=== PATIENT | female | born 1975 | race Caucasian/White ===

== ENCOUNTER → 2023-10-07 08:01 | Outpatient (BNVA) | payer OTHER, SELFPAY | PROVIDERS: PCP Internal Medicine; Visit Provider Physician Assistant Surgical ==

== ENCOUNTER 2023-11-04 08:20 | Outpatient (AMB) | payer OTHER, SELFPAY ==
--- NOTE | 2023-11-04 08:21 | MHC.OFFVISWM ---
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: No Allergies bee pollen Allergy (Severe, Verified 11/04/23 08:35) Anaphylaxis mold Allergy (Intermediate, Uncoded 11/04/23 08:35) Anaphylaxis Medication List - Last Reconciled 11/04/23 by MAXIMILIAN Lara ascorbic acid (vitamin C) PO DAILY biotin mcg PO clonazepam mg PO clonidine HCl mg PO DAILY cyanocobalamin (vitamin B-12) (B-12 DOTS) 500 mcg PO DAILY duloxetine 30 mg PO BID ergocalciferol (vitamin D2) 1,250 mcg PO QWEEK gabapentin 100 mg PO TID multivitamin (Daily Multi-Vitamin tablet) 1 tab PO DAILY naltrexone microspheres ER (Vivitrol) 380 mg IM Q4W omeprazole 20 mg PO BID HPI Comments Details: Pt is here to start the [facility] Weight Management surgical weight loss program. She heard about our program from her friend. Her goal is to lose weight and achieve a healthy lifestyle. She reports first being concerned about her weight for the last 13 years, highest weight to date was 296, lowest weight after GBP was 142 pounds. Current weight is 181.6 pounds with a BMI of 31.2. She has tried multiple methods of weight loss including previous gastric bypass without permanent results. She lives alone. 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 She wakes at:?8 am, and goes to bed at?1030 pm. Dinner is at 730 pm. Breakfast: skip or coffee w cream AM snack: cheese, deli meat Lunch: small sandwich w roast beef or turkey, pizza, chicken PM snack: cheese and crackers Dinner: ravioli, steamers, lobster, chicken After dinner: yogurt Other snacks: hummus Liquids: 160 oz water, no soda, no juice Alcohol/marijuana/tobacco intake: 2 etoh beverages 1-2 x per week, no cannabis or tobacco Exercise: none, gym membership at GERD score: 7 REJI score: 1 ESS score: 3 QOL score: 52 PFS Surgical History Hx of abdominoplasty Hx of rotator cuff surgery Hx of hernia repair Hx of breast reconstruction Hx of hysterectomy Hx of bilateral mastectomy Hx of resection of small bowel Hx of cholecystectomy Hx of lymph node excision Hx of gastric bypass Hx of tonsillectomy Family History Mother Hx of uterus malignancy Father Hx of bladder cancer Maternal Grandmother History of pancreatic cancer Social History (Updated 10/07/23 @ 10:32 by Hanane Cohen CMA) Alcohol intake: current Alcohol intake frequency: holidays/special occasions only Alcohol type: other Comment: soniya Physical Exam Const General: cooperative, healthy appearing and no acute distress Orientation/consciousness: patient oriented x3 HEENT Head: Yes normal to inspection Ears: hearing grossly normal bilaterally General nose exam: Normal external nose present Face and sinus: Yes normal facial exam Eyes General: appearance normal, both eyes and all related structures Resp Effort & Inspection: normal respiratory effort Auscultation: clear to auscultation bilaterally Cardio Rate: regular rate Rhythm: regular rhythm Heart sounds: S1 normal heart sound present and S2 normal heart sound present GI Inspection: Yes normal to inspection, No distended and Yes obesity Palpation (GI): Soft to palpation, nontender and no guarding Auscultation: normal bowel sounds Skin General skin exam: no rashes or lesions noted Neuro General: patient oriented x3 Extrem General: No edema Psych Appearance: grossly normal Mental Status: mental status grossly normal Speech and movement: Normal speech and movement present Affect: normal affect Attitude: cooperative Assessment & Plan Assessment & Plan (1) Obesity: Code(s): E66.9 - Obesity, unspecified Category: Medical Plan: This is a?48 yo female who will start our SWL program to prepare for bariatric surgery.? Blood work, CXR, ECG, Abd US and UGI have been ordered. She is being scheduled for initial consultations. She will start SWL classes and watch the first three videos before her next appointment. 1. You have been given a paper with a link to our software aby ([email or web address]) to generate an individualized nutritional and exercise plan specific for you. Please send me a screenshot of the plans you will generate Meal to include lean meat (beef, fish, pork, turkey, chicken), or hungarian yogurt, or egg whites, or beans with a salad with olive oil and fruits (berries, pears, apples, kiwi). Avoid salt, breads, potatoes, rice, pasta, desserts. 2. If you choose shakes, each shake would be drunk slowly, like coffee over a period of 2 hours. 3. If you choose bars, cut each bar in 4 pieces and eat each piece in 30 min to make each bar last 2 hours. 4. I emphasized the importance of measuring accurately the food portion and measure it when serving the food on a plate 5. The meal portions include a specific number of forks of meat (protein) and salad. You always eat the meat portion but you can replace up to half of salad/vegetables portion with rice, potatoes or pasta, or a fruit ?if you like. The less you do it the better weight loss will be. 6. One full-size fork is what can be scooped on the fork without falling aside and not what can be bit with the fork. Use regular forks like those you find in a typical restaurant. 7.? Please send me weight measurements from your body composition scale as soon as possible and then once a week. Always include your diet and exercise plan. The best time to weigh yourself is first thing in the morning after going to the bathroom. 8. The best choice for exercise would be stationary bike, elliptical, treadmill. Please return to [facility] gym. Goal is to burn 300 calories daily or 2000 calories weekly. Alternatively start walking outside daily, tracking calories with a goal of 300 calories per day, daily. You can download the aby [employer] which can track your time, distance and calories while walking outside. You press start in the ayb when you start and then stop when you are finished. 9.?Goal is to lose at least 1.5-2 lbs per week, and about 10% before surgery, which is about 18 pounds 10. Please follow the diet plan exactly without any change. If you don't like something about the plan or you feel hungry you need to communicate with me so I can help you revise the plan. My cell phone number to communicate with me by text is [phone] Patient is morbidly obese and is not considered stable at this time.?I spent a total of 70 minutes reviewing/updating records, examining the patient and counseling the patient on weight management as detailed above. Orders: Orders Comprehensive Met. Panel Today E66.9 - Obesity, unspecified Vitamin B12 and Folate Today E66.9 - Obesity, unspecified Zinc Today E66.9 - Obesity, unspecified C Reactive Protein Today E66.9 - Obesity, unspecified Vitamin B1 Today E66.9 - Obesity, unspecified Vitamin A Today E66.9 - Obesity, unspecified TSH reflex Free T4 Today E66.9 - Obesity, unspecified Vitamin D 25-OH Total Today E66.9 - Obesity, unspecified FL upper GI w air Today E66.9 - Obesity, unspecified Insulin Today E66.9 - Obesity, unspecified Hemoglobin A1c Today E66.9 - Obesity, unspecified Complete Blood Count Auto Diff Today E66.9 - Obesity, unspecified Lipid Panel Today E66.9 - Obesity, unspecified IRON PROFILE Today E66.9 - Obesity, unspecified Ferritin Today E66.9 - Obesity, unspecified US abdomen comp w elastography Today E66.9 - Obesity, unspecified XR chest 2V Today E66.9 - Obesity, unspecified ECG 12 lead EKG Today E66.9 - Obesity, unspecified Referrals Behavioral Health Referral E66.9 - Obesity, unspecified
[2023-11-04 08:31] VITALS: BP 133/67; PULSE 69; TEMP 36.6; O2SAT 99; BMI 31.2
== END 2023-11-04 09:17 | disposition home or self-care (01) ==
PROVIDERS: PCP Internal Medicine; Visit Provider Physician Assistant Surgical
DX: E66.9 Obesity, unspecified (principal)
CPT/HCPCS: 99205

== ENCOUNTER 2023-11-04 08:20 | Outpatient (REF) | payer OTHER, SELFPAY ==
--- NOTE | ~2023-11-04 | XR_ITS ---
EXAMINATION: XR CHEST CLINICAL INFORMATION: Obesity unspecified. COMPARISON: None available. TECHNIQUE: 2 views of the chest were obtained. FINDINGS: Dextroscoliosis of the thoracic spine. Surgical clips overlie the left breast shadow. Postsurgical changes at the right hilum with surgical clips. Surgical clips in the right axilla. Surgical clips along the anterior upper abdomen. No pleural effusion. Heart size is normal. No focal consolidation. XR/XR chest 2V IMPRESSION: No evidence of pneumonia. Multiple areas of postsurgical change are incompletely evaluated. Correlation with surgical history and possible direct correlation with prior images recommended. Electronically signed by: Kiara Bear MD 12/01/2023 10:35 AM EDT
--- NOTE | 2023-11-04 09:30 | ECG_ITS ---
Test Reason : e66.9 Blood Pressure : / mmHG Vent. Rate : 064 BPM Atrial Rate : 064 BPM P-R Int : 160 ms QRS Dur : 096 ms QT Int : 410 ms P-R-T Axes : 054 027 043 degrees QTc Int : 422 ms Sinus rhythm with sinus arrhythmia with occasional Premature ventricular complexes Otherwise normal ECG No previous ECGs available Referred By: Enrique Amador Electronically Signed By:DIXON SOARES
[2023-11-04 09:47] LABS: MANUAL DIFF FLAG NO
[2023-11-04 10:48] LABS: Basophils Percent Auto 0.6 % (0-2); Eosinophils Absolute Auto 0.1 X10*3/uL (0.0-0.4); Eosinophils Percent Auto 1.6 % (0-4); Hematocrit 38.5 % (37.0-47.0); Hemoglobin 12.7 g/dl (12.0-16.0); Imm Gran Abs Auto 0.01 X10*3/uL (0.00-0.03); Imm Gran Pct Auto 0.2 % (0.0-0.4); Lymphocytes Absolute Auto 2.4 X10*3/uL (1.2-4.9); Lymphocytes Percent Auto 48.7 % (20-40); Mean Corpuscular Hemoglobin 27.7 pg (27.0-33.0); Mean Corpuscular Volume 84.1 fL (80.0-98.0); Monocytes Absolute Auto 0.3 X10*3/uL (0.1-1.2); Monocytes Percent Auto 5.5 % (2-11); Neutrophils Absolute Auto 2.1 x10*3/uL (2.0-8.3); Neutrophils Percent Auto 43.4 % (45-73); Platelet Count 274 X10*3/uL (160-400); Red Blood Count 4.58 X10*6/uL (4.20-5.50); Red Cell Distribution Width 13.5 % (11.0-16.0); White Blood Count 4.9 X10*3/uL (4.8-10.8)
[2023-11-04 11:00] LABS: Estimated Average Glucose 111 mg/dL; Hemoglobin A1c % 5.5 % (<6.0)
[2023-11-04 11:25] LABS: Alanine Aminotransferase 24 U/L (0-31); Albumin Level 4.4 g/dL (3.5-5.0); Alkaline Phosphatase 131 U/L (39-117); Anion Gap 10 (12-20); Aspartate Amino Transferase 20 U/L (5-31); Bilirubin Total 0.6 mg/dL (0.0-1.0); Blood Urea Nitrogen 15 mg/dL (9-16); C Reactive Protein < 0.10 mg/dL (< or = 0.50); Calcium 9.3 mg/dL (8.4-10.2); Carbon Dioxide 30 mmol/L (22-29); Chloride 103 mmol/L (96-108); Cholesterol 178 mg/dL (<200); Estimated Glomerular Filt Rate > 60; Glucose Random 99 mg/dL (60-115); HDL Cholesterol 70 mg/dL (>40); Iron 44 mcg/dL (30-160); LDL Cholesterol Calculated 91 mg/dL (<100); Percent Iron Saturation 11 % (15-50); Potassium 3.7 mmol/L (3.3-5.1); Sodium 139 mmol/L (135-145); Total Iron Binding Capacity 399 mcg/dL (228-428); Total Protein 7.4 g/dL (6.5-8.0); Triglycerides 85 mg/dL (<150); Unsaturated Iron Binding 355 ug/dL
[2023-11-04 11:47] LABS: Folate 9.2 ng/mL (> or = 4.0); Vitamin B12 464 pg/mL (200-900)
[2023-11-04 11:53] LABS: Ferritin 9 ng/mL (10-250); TSH reflex Free T4 1.35 uIU/mL (0.32-4.0); Vitamin D 25-OH Total 25.6 ng/mL (>30)
[2023-11-04 12:01] LABS: Insulin 6 uU/mL (2-29)
[2023-11-07 11:53] LABS: Zinc 71 mcg/dL (60-130)
[2023-11-08 10:58] LABS: Vitamin B1 15 nmol/L (8-30)
[2023-11-11 18:28] LABS: Vitamin A 47 mcg/dL (38-98)
== END 2023-11-04 08:21 | disposition home or self-care (01) ==
LOC: HO.LAB 08:20
PROVIDERS: PCP Internal Medicine; Visit Provider Physician Assistant Surgical
DX: E66.9 Obesity, unspecified (principal); Z79.899 Other long term (current) drug therapy
CPT/HCPCS: 36415; 71046; 80053; 80061; 82306; 82607; 82728; 82746; 83036; 83525; 83540; 84425; 84443; 84590; 84630; 85025; 86140; 93005; 99202

== ENCOUNTER → 2023-11-04 09:30 | Outpatient (BNV) | payer OTHER, SELFPAY | PROVIDERS: PCP Internal Medicine; Visit Provider Internal Medicine | DX: E66.9 Obesity, unspecified (principal) | CPT/HCPCS: 93010 ==

== ENCOUNTER 2023-11-16 08:05 | Outpatient (REF) | payer OTHER, SELFPAY ==
--- NOTE | ~2023-11-16 | US_ITS ---
EXAMINATION: US COMPLETE ABDOMEN WITH LIVER ELASTOGRAPHY CLINICAL INFORMATION: Obesity. COMPARISON: None available. TECHNIQUE: Real-time imaging of the abdominal viscera. Noninvasive ultrasound liver fibrosis assessment is performed using Piyush ElastPQ point quantification shear wave elastography (pSWE) with a C5-2 MHz transducer. Multiple elastography samples are obtained. FINDINGS: PANCREAS: The visualized pancreatic head and body are normal in appearance. The remainder of the pancreas is obscured from visualization by the overlying bowel gas. ABDOMINAL AORTA: The proximal, middle, and distal aortic segments are normal in caliber. INFERIOR VENA CAVA: Visualized portions are normal. LIVER: The liver demonstrates normal size, contour and echogenicity. No focal lesion or intrahepatic biliary duct dilatation. The right lobe measures 15.5 cm in length. The left lobe measures 10.5 cm in length. Portal flow is towards the liver (hepatopetal). Shear wave liver elastography median stiffness is 1.27 m/s (reference: normal median stiffness is 1.3 m/s or less). IQR/median stiffness to assess sampling precision is 0.08 (reference: good quality data set is IQR/median stiffness of 0.15 or less). GALLBLADDER: The gallbladder is physiologically distended without evidence of stones, sludge, polyps, wall thickening or pericholecystic fluid. COMMON BILE DUCT: Common bile duct mildly dilated at 0.7 cm in diameter. RIGHT KIDNEY: Normal. No hydronephrosis. No renal calculi or focal parenchymal lesions. The kidney measures 10.5 cm in maximum dimension. LEFT KIDNEY: Normal. No hydronephrosis. No renal calculi or focal parenchymal lesions. The kidney measures 11.2 cm in maximum dimension. SPLEEN: Normal. The spleen measures 10.3 cm in maximum dimension. FREE FLUID: None. US/US abdomen comp w elastography IMPRESSION: 1. Normal-appearing liver. 2. Liver Elastography: Measurements are consistent with a high probability of normal liver stiffness. REFERENCE: Society of Radiologists in Ultrasound Liver Stiffness Thresholds (2020): LIVER STIFFNESS THRESHOLDS: *Liver Stiffness equal or less than 1.3 m/s: High probability of being normal. *Liver Stiffness less than 1.7 m/s: In the absence of other known clinical signs, rules out compensated advanced chronic liver disease. *Liver Stiffness 1.7-2.1 m/s: Suggestive of compensated advanced chronic liver disease but need further test for confirmation. *Liver Stiffness over 2.1 m/s: Rules in compensated advanced chronic liver disease. *Liver Stiffness over 2.4 m/s: Suggestive of clinically significant portal hypertension. QUALITY OF DATA SET: *IQR/Median value equal or less than 0.15 implies a quality data set. *IQR/Median value over 0.15 implies a poor quality data set. SIGNIFICANT CHANGE FROM PRIOR EXAM: Significant change if liver stiffness measurement is 10% or greater from prior exam. OTHER CONSIDERATIONS: The stage of liver fibrosis may be overestimated in the setting of acute hepatitis, liver inflammation, elevated liver function tests, hepatic vascular congestion, obstructive cholestasis, non-fasting state, and infiltrative diseases such as amyloidosis and lymphoma. In some patients with NAFLD, the liver stiffness thresholds for compensated advanced chronic liver disease may be lower. In causes other than viral hepatitis and NAFLD, liver stiffness thresholds are not well established. Electronically signed by: Diallo Schmitz MD 11/26/2023 09:55 PM EDT
== END 2023-11-16 08:06 | disposition home or self-care (01) ==
LOC: HO.US 08:05
PROVIDERS: PCP Physician Assistant; Visit Provider Physician Assistant Surgical
DX: E66.9 Obesity, unspecified (principal)
CPT/HCPCS: 76700; 76981

== ENCOUNTER → 2023-11-18 09:55 | Outpatient (REF) | payer OTHER, SELFPAY ==
--- NOTE | 2023-11-18 09:59 | CA_ITS ---
Transthoracic Echocardiogram Patient (Last, First, Middle): Chata Turner, Gender: Female Date of : 1975 Age: 48 Procedure Date: 11/18/2023 Procedure Type: Transthoracic Echocardiogram Location: OP Height: 165.1 cm Weight: 83.92 kg BSA: 1.91 m2 Heart Rate: bpm BP: 132 / 88 mmHg Kier Pleater: LESLEE Referring MD: Enrique YAO Fundraising Consultant: Patrick Britton MD Symptoms: R94.31 - Abnormal electrocardiogram [ECG] [EKG] Study Quality: Fair, contrast ECG Rhythm: Sinus Conclusions: - 1. Normal LV ejection fraction 55-60% with normal filling pattern 2. Normal cardiac valvular Doppler 3. Normal RV systolic pressure 4. Upper limits of normal ascending aortic size Findings Procedure Information Contrast agent, definity, is being given per protocol without apparent complications. Left Ventricle Normal left ventricular size, thickness, and systolic function. The visually estimated ejection fraction is between 55-60%. Spectral Doppler is indicative of a normal filling pattern. Right Ventricle The right ventricle was not well visualized. Atria The left atrium is normal in size. Interatrial shunt cannot be excluded. The right atrium is normal in size. Aortic Valve The aortic valve was not well visualized. There is no aortic valve stenosis. There is no aortic valve regurgitation. Mitral Valve The mitral valve was not well visualized. There is no mitral valve regurgitation. There is no mitral valve stenosis. Pulmonic Valve The pulmonic valve was not well visualized. Tricuspid Valve Likely normal tricuspid valve structure and function. There is trace tricuspid valve regurgitation. The right ventricular systolic pressure is normal. The right ventricular systolic pressure is 22 mmHg. Normal right atrial pressure. There is no evidence of pulmonary hypertension. Great Vessels All visible segments of the aorta are normal in size. The pulmonary artery was not well visualized. Venous The inferior vena cava is normal in size. Pericardium/Pleural The pericardium was not well visualized. Prior Study Comparison No prior study available for comparison. Measurements 2D Linear Measurements IVSd: 0.94 0.6-0.9/0.6-1.0 cm LVIDd: 4.49 3.9-5.3/4.2-5.9 cm LVIDd Index: 2.35 2.4-3.2/2.2-3.1 cm/m2 LVIDs: 2.90 2.0-3.6 cm LVPWd: 0.95 0.7-1.1 cm LA Diam: 2.90 2.7-3.8/3.0-4.0 cm LAIDs Index: 1.52 1.5-2.3 cm/m2 LV Mass: 175.82 67-162/88-224 g LV Mass Index: 92.05 43-95/49-115 g/m2 LVOT Diam: 2.10 3.0+(-)1.3 cm 2D Systolic Function EF 4C: 59.90 >55% EF 2C: 59.10 >55% EF BiP: 57.10 >55% Mitral Valve MV Pk E: 1.05 MV PK A: 0.73 MV Decel Time: 182.00 E/A: 1.40 E'Lateral: 11.30 E'Medial: 7.40 E/E' Med: 14.20 E/E' Lat: 9.30 PHT: 53.00 MVA PHT: 4.15 Decel Vermilion: 5.75 Aortic Valve AoV Pk Hermilo: 1.33 AoV Mn Hermilo: 0.96 AoV VTI: 0.32 AoV Pk Grad: 7.00 Aov Mn Grad: 4.00 KANNAN Cont.VTI: 2.24 LVOT LVOT Pk Hermilo: 0.92 LVOT Mn Hermilo: 0.63 LVOT VTI: 0.21 LVOT Pk Grad: 3.00 LVOT Mn Grad: 2.00 LVOT Diam: 2.10 LVOT Area: 3.46 Diastolic Function MV Pk E: 1.05 MV Pk A: 0.73 E/A: 1.40 E'Medial: 7.40 E/E' Med: 14.20 E' Laterial: 11.30 E/E' Lat: 9.30 Right Ventricle TAPSE (mm): 22.10 TVS' Hermilo: 9.36 Tricuspid Valve TR Pk Hermilo: 2.18 TR Pk Grad: 19.00 RA Press: 3.00 RVSP: 22.00 Great Vessels Aorta Sinus of Valsalva: 3.31 2.0-3.5 cm Ao Asc: 3.60 2.1-3.4 cm Updated in Other Vendor System with Status of Final Patrick Britton MD electronically signed on 11/18/2023 1:49:02 PM with status of Final
== END ==
LOC: HO.CARD 09:55
PROVIDERS: PCP Internal Medicine; Visit Provider Physician Assistant Surgical
DX: R94.31 Abnormal electrocardiogram [ECG] [EKG] (principal)
CPT/HCPCS: 93306; Q9957

== ENCOUNTER → 2023-11-18 09:59 | Outpatient (BNV) | payer OTHER, SELFPAY | PROVIDERS: PCP Internal Medicine; Visit Provider Internal Medicine Cardiovascular Disease | DX: R94.31 Abnormal electrocardiogram [ECG] [EKG] (principal) | CPT/HCPCS: 93306 ==

== ENCOUNTER 2023-11-30 09:00 | Outpatient (AMB) | payer OTHER, SELFPAY ==
--- NOTE | 2023-11-30 09:09 | MHC.WMTHER ---
Intake Intake Visit Reasons: VIDEO Intake Allergies bee pollen Allergy (Severe, Verified 12/07/23 09:13) Anaphylaxis mold Allergy (Intermediate, Uncoded 12/07/23 09:13) Anaphylaxis PFSH Surgical History Hx of abdominoplasty Hx of rotator cuff surgery Hx of hernia repair Hx of breast reconstruction Hx of hysterectomy Hx of bilateral mastectomy Hx of resection of small bowel Hx of cholecystectomy Hx of lymph node excision Hx of gastric bypass Hx of tonsillectomy Family History Mother Hx of uterus malignancy Father Hx of bladder cancer Maternal Grandmother History of pancreatic cancer Social History Alcohol intake: current Alcohol intake frequency: holidays/special occasions only Alcohol type: other Comment: soniya Behavioral Health Assessment Weight Management Therapy Therapy Notes Details PT is a years old F/M, who presents for a visit to complete assessment as part of surgical weight loss program. Presenting Concerns Referral Source P Provider, Has initial [place] with [facility] on 11/04/23 at was at 181Lbs. Reason for referral Completion of behavioral health assessment as part of process for weight-loss surgery. Precipitating Event Weight gain and struggles losing weight in the last years after dealing with Cancer post-bariatric surgery. Food/Weight/Diet Expectations of change Initial goal is to lose at least 1.5-2 lbs per week, and about 10% before surgery, which is about 18 pounds. Current weight was 181Lbs. Her ideal weight is around 150Lbs, which is a comfortable point for her. Patient goals are to be and feel healthy. PT is implementing the following: Current meal plan: Exercise plan: History/Relationship with food Example of meals before starting the program: Breakfast: Lunch: Dinner: Snacks: Drinks/Liquids: History/Relationship with weight All of the family on her mother side are obese and has diabetes related complications. In the last 10 years, the patient's Lowest weight was 140Lbs and highest Social History Family history and relationship PT is 9 years ago. She has 4 adult children and 3 grandchildren. She has 1 sister who lives in [place]. Father in 2017, mother is alive. Growing up she was very close to her grandparents. 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 Developmental history and status None reported Currently WNL. Social support Mother, youngest daughter who lives with her, great sisters from the [facility]. Community support Therapist, and other providers. Baptist/Spirituality Congregational. Cultural/Ethnic information . Legal Involvement and History Current or historical involvement with the legal system? None reported. 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 ) Wants help to find employment? No Mental Health and Addiction Treatment Psychiatric history PT is attending psychotherapy on a weekly basis, and sees a psychiatrist every month. PT reports a history of trauma leading to PTDS, Sleeping issues and OCD. She has been hospitalized 2 times due to depression, more than 9 years ago (2004 and 2013) Never has had SI/Sa and denied any past of current concern with self-harming or other-harm. Current psych. Meds: Clonazepam 0.5Mg, 3 times at day. She takes it as needed. Clonidine 0.1mg, for anxiety. Duloxetine 30mg, for depression Gabapentin 100mg, for sleep and chronic pain. Vivitrol 380mg, injection once at month. due to extended time using prescription pain medicine due to multiple surgeries and being on pain meds. Currently takes it as a prevention as she went into withdraws after stopping pain medicine. Trauma/Abuse History History of trauma? Yes Assessment & Plan Assessment & Plan (1) PTSD (post-traumatic stress disorder): Code(s): F43.10 - Post-traumatic stress disorder, unspecified Plan PT not cleared, we will meet again to finish assessment. Telehealth Telehealth [facility] Location of provider rendering services: other Location of patient: address on file Patient Identification confirmed using: Name, : Yes Telehealth method: voice only Patient verbally consented to treatment: Yes Patient verbally consented to billing insurance company: Yes Patient informed of any privacy concerns related to visit: No Minutes spent on Phone/Video with Pt.: 55 Coding Level of Care Code New Pt Tele Psytx >53 mins (33282) Patient Type New Diagnoses PTSD (post-traumatic stress disorder) F43.10 Time Spent (min) 55
--- OUTSIDE RECORDS SUMMARY | 2023-11-30 09:12 | XMS_ITS | Continuity of Care Document ---
Author Organization [facility] [place] Address [address] [place] [address]- Care Team Providers Care Novelty Twister Tender Name Role Phone Kwasi Riggins MD, Mary Primary Care Physician Encounter [facility] Date(s): 12/17/21 - 01/16/22 [facility] [place] [address] [place] [address]- Allergies, Adverse Reactions, Alerts Substance Reaction Severity Status Bee Stings severe swelling Active NSAIDs History of stomach ulcers 04-JAN-2016 21: 52:31<$> Active Mold swelling Active Immunizations Given and Recorded Vaccine Date Status Refusal Reason SARS-CoV-2 (COVID-19) mRNA-1273 vaccine 06/22/21 R ecorded influenza virus vaccine, inactivated 04/09/21 Dereje rded influenza virus vaccine, inactivated 11/20/20 Dereje rded influenza virus vaccine, inactivated 12/23/19 Dereje rded influenza virus vaccine, inactivated 04/18/19 Give n influenza virus vaccine, inactivated 12/07/18 Dereje rded influenza virus vaccine, inactivated 12/19/17 Dereje rded influenza virus vaccine, inactivated 05/22/17 Give n influenza virus vaccine, inactivated 12/24/14 Dereje rded SARS-CoV-2 (COVID-19) mRNA BNT-162b2 vac 01/02/21 Recorded SARS-CoV-2 (COVID-19) mRNA BNT-162b2 vac 05/11/20 Recorded SARS-CoV-2 (COVID-19) mRNA BNT-162b2 vac 04/20/20 Recorded hepatitis B adult vaccine 05/10/15 Given hepatitis B adult vaccine 03/19/15 Given tetanus/diphtheria/pertussis, acel(Tdap) 2/15/13 Recorded Medications acamprosate 333 mg oral delayed release tablet 2 tablet = 666 mg, By Mouth, 3 times a day, # 180 tablet, 0 Refills, Maintenance, 12/13/21 7:20:00 EDT, EC Tablet, [facility], Partial fill upon patient request if the prescription isfor a schedule II opioid drug., 162.7, cm, 11/21/21 14:... Start Date: 12/13/21 Stop Date: 01/12/22 Status: Ordered acamprosate 333 mg oral delayed release tablet 2 tablet = 666 mg, By Mouth, 3 times a day, for 30 days, # 180 tablet, 3 Refills, Hard Stop 02/01/22 12:54:00 EST, 10/04/21 12:54:00 EDT, [id number] Partial fill upon patient request if the prescription is for a schedule I... Start Date: 10/04/21 Stop Date: 02/01/22 Status: Ordered acamprosate 333 mg oral delayed release tablet 2 tablet = 666 mg, By Mouth, 3 times a day, for 30 days, sent to wrong pharmacy, # 180 tablet, 3 Refills, Hard Stop 02/06/22 16:00:00 EST, 10/09/21 16:00:00 EDT, EC Tablet, [facility], Partial fill upon patient request if the prescription... Start Date: 10/09/21 Stop Date: 02/06/22 Status: Ordered Acidophilus oral tablet 2 tablet, By Mouth, Daily, 0 Refills, Maintenance, 07/11/14 15:14:49 Start Date: 07/11/14 Status: Ordered B-12 500 mcg sublingual tablet See Instructions, PLACE 1 TABLET UNDER TONGUE AND LET DISSOLVE ONCE DAILY., # 28 tablet, 5 Refills,Soft Stop, 08/30/21 15:40:00 EDT, [facility], 162.7, cm, 08/02/21 11:03:00 EDT, Height, 92.4, kg, 03/28/21 13:20:00 EST, Dry Weight Start Date: 08/30/21 Status: Ordered Caltrate 600 with D 1 tab, By Mouth, Daily, 0 Refills, Maintenance Start Date: 04/13/12 Status: Ordered clonazePAM 0.5 mg oral tablet 1 tablet = 0.5 mg, By Mouth, 3 times a day, for 30 days, # 90 tablet, 5 Refills, Hard Stop 04/02/2311:55:00 EST, 10/04/21 12:55:00 EDT, Tablet, [id number], insurance refused to cover 4x/day, 162.7, cm, 08/02/21 11:03:00 EDT, Height,... Start Date: 10/04/21 Stop Date: 04/02/22 Status: Ordered clonazePAM 0.5 mg oral tablet 1 tablet = 0.5 mg, By Mouth, 3 times a day, # 90 tablet, 0 Refills, Maintenance, 01/09/22 7:43:00 EDT, Tablet, [facility], 162.7, cm, 12/16/21 13:04:00 EDT, Height, 92.4, kg, 03/28/2212:20:00 EST, Dry Weight Start Date: 01/09/22 Status: Ordered cloNIDine 0.1 mg oral tablet 0.1 mg, 1, tablet, By Mouth, Daily, As needed for anxiety, # 90 tablet, Refills 0, Tot. Refills 0, Maintenance, 12/13/21 7:20:00 EDT, Route to Pharmacy Electronically, [facility], 162.7, cm, 11/21/21 14:52:00 EDT, Height, 92.4, kg, ... Start Date: 12/13/21 Stop Date: 03/13/22 Status: Ordered cloNIDine 0.1 mg oral tablet 0.1 mg, 1, tablet, By Mouth, Daily, for 90 days, As needed for anxiety, # 90 tablet, Refills 1, Tot. Refills 1, Hard Stop 04/02/22 12:55:00 EST, 10/04/21 12:55:00 EDT, Route to Pharmacy Electronically, [facility] #[id number], 162.7, cm, 08/02/21... Start Date: 10/04/21 Stop Date: 04/02/22 Status: Ordered duloxetine 30 mg oral enteric coated capsule 1 capsule = 30 mg, By Mouth, Daily, for 90 days, # 90 capsule, 0 Refills, Hard Stop 03/13/22 7:19:00 EST, 12/13/21 7:19:00 EDT, [facility], correcting to 30mg ONCE a day - dose reduction, 162.7, cm, 11/21/21 14:52:00 EDT, Height, 92.4, kg,... Start Date: 12/13/21 Stop Date: 03/13/22 Status: Ordered duloxetine 30 mg oral enteric coated capsule 1 capsule = 30 mg, By Mouth, Daily, for 90 days, # 90 capsule, 1 Refills, Hard Stop 04/02/22 12:55:00 EST, 10/04/21 12:55:00 EDT, [id number], correcting to 30mg ONCE a day - dose reduction, 162.7, cm, 08/02/21 11:03:00 EDT, Height, 92... Start Date: 10/04/21 Stop Date: 04/02/22 Status: Ordered duloxetine 30 mg oral enteric coated capsule 1 capsule = 30 mg, By Mouth, Daily, # 90 capsule, 0 Refills, Maintenance, 10/09/21 16:00:00 EDT, [facility], 162.7, cm, 08/02/21 11:03:00 EDT, Height, 92.4, kg, 03/28/21 13:20:00 EST,Dry Weight Start Date: 10/09/21 Stop Date: 01/07/22 Status: Ordered EPINEPHrine 0.3 mg injectable solution = 0.3 mg, Intramuscular, Once, # 1 kit, 1 Refills, Soft Stop, 11/07/21 9:25:00 EDT, [facility], 162.7, cm, 11/07/21 8:48:00 EDT, Height, 92.4, kg, 03/28/21 13:20:00 EST, Dry Weight Start Date: 11/07/21 Status: Ordered ergocalciferol 20647 iu oral capsule See Instructions, TAKE 1 CAPSULE BY MOUTH EVERY WEEK, # 4 capsule, Refills 5, Tot. Refills 5, Maintenance, 11/07/21 9:25:00 EDT, Instructions Replace Required Details, Route to Pharmacy Electronically, [facility], Partial fill upon patient... Start Date: 11/07/21 Status: Ordered gabapentin 100 mg oral capsule See Instructions, 1 capsule By Mouth in AM and 2 capsule PO HS last filled 11/19/21, # 360 capsule, Refills 0, Tot. Refills 0, Maintenance, 12/13/21 7:20:00 EDT, Instructions Replace Required Details,Route to Pharmacy Electronically, [facility] Start Date: 12/13/21 Status: Ordered Mastectomy Bra See Instructions, # 6 each, Refills 1, Tot. Refills 1, Maintenance, History of breast cancer Bilateral mastectomy. Asymmetry due to surgery Diagnosis: C50.911, 10/24/20 13:51:00 EDT, Supply Start Date: 10/24/20 Status: Ordered Mastectomy Prosthesis See Instructions, # 2 each, Refills 1, Tot. Refills 1, Maintenance, History of breast cancer Bilateral mastectomy. Asymmetry due to surgery Diagnosis: C50.911, 10/24/20 13:51:00 EDT, Supply Start Date: 10/24/20 Status: Ordered Multivitamin By Mouth, Daily, 0 Refills, Maintenance Start Date: 07/09/10 Status: Ordered NuLYTELY with Flavor Packs oral powder for reconstitution See Instructions, per GI office, # 4,000 mL, 0 Refills, Maintenance, 12/17/21 15:08:00 EDT, [facility]; [facility], Partial fill upon patient request if the prescription is for a schedule II opioid drug., per GI office, 162.7, cm, 12/16/21 13:04:00 ED... Start Date: 12/17/21 Status: Ordered omeprazole 20 mg oral delayed release tablet = 20 mg, By Mouth, 2 times a day, # 180 tablet, 1 Refills, Maintenance, 09/03/21 12:04:00 EDT, EC Tablet, [facility], 162.7, cm, 08/02/21 11:03:00 EDT, Height, 92.4, kg, 03/28/21 13:20:00 EST, Dry Weight Start Date: 09/03/21 Stop Date: 03/02/22 Status: Ordered oxybutynin 5 mg oral tablet See Instructions, 0.5 tablet By Mouth 2 times a day, # 90 each, 3 Refills, Maintenance, 11/21/21 15:26:00 EDT, [facility], Partial fill upon patient request if the prescription is fora schedule II opioid drug., 162.7, cm, 11/21/21 14:52:0... Start Date: 11/21/21 Status: Ordered Vitamin C 1000 mg oral tablet 1 tablet = 1,000 mg, By Mouth, Daily, # 30 tablet, 5 Refills, Soft Stop, 06/15/22 16:44:00 EDT, [facility], 162.7, cm, 12/16/21 13:04:00 EDT, Height, 92.4, kg, 03/28/21 13:20:00 EST, Dry Weight Start Date: 06/15/22 Stop Date: 12/12/22 Status: Ordered Vitamin C 1000 mg oral tablet 1 tablet = 1,000 mg, By Mouth, Daily, for 30 days, # 30 tablet, 5 Refills, Hard Stop 06/15/22 16:44:00 EDT, 12/17/21 16:44:00 EDT, [facility], 162.7, cm, 12/16/21 13:04:00 EDT, Height, 92.4, kg, 03/28/21 13:20:00 EST, Dry Weight Start Date: 12/17/21 Stop Date: 06/15/22 Status: Ordered Vivitrol 380 mg intramuscular injection, extended release = 380 mg, Intramuscular, Every 28 days, Every 28 days in our office -delivewred by patients own pharmacy-[facility], # 1 kit, 11 Refills, Maintenance, 08/23/21 7:19:00 EDT, Injection, [id number], 162.7, cm, 08/02/21 11:0... 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 Active History of breast cancer, Right, IDC, grade II, T2 N0, ER/[place] positive, Her-2/sia negative, 2012 Confirmed Active Impulse control disorder Confirmed Active Mood disorder Confirmed Active Obese class I Confirmed Active MDD (major depressive disorder), recurrent episode, mild Confirmed Active Restless legs syndrome (RLS) Confirmed Active Vitamin d deficiency Confirmed Active Social History Social History Type Response Smoking Status Never (less than 100 in lifetime) entered on: 02/28/21 Sex Patient Care team information Personnel Name: Mary Eng MD Address: Address: [address] [place] [id number]
--- OUTSIDE RECORDS SUMMARY | 2023-11-30 09:12 | XMS_ITS | Continuity of Care Document ---
Author Organization [facility] [place] Address [address] [place] [address]- Care Team Providers Care Paedodontist Name Role Phone Mary Eng MD Primary Care Physician Encounter [facility] Date(s): 10/23/20 - 11/22/20 [facility] [address] [address]- Attending Physician: Brielle Oakes Admitting Physician: AdmBrielle be Referring Physician: Admtr, Ar8 Allergies, Adverse Reactions, Alerts Substance Reaction Severity Status Bee Stings severe swelling Active Mold swelling Active NSAIDs History of stomach ulcers -DEC-2015 21: 52:31<$> Active Immunizations Given and Recorded Vaccine Date Status Refusal Reason SARS-CoV-2 (COVID-19) mRNA BNT-162b2 vac 05/11/20 Recorded SARS-CoV-2 (COVID-19) mRNA BNT-162b2 vac 04/20/20 Recorded influenza virus vaccine, inactivated 12/23/19 Dereje rded influenza virus vaccine, inactivated 04/18/19 Give n influenza virus vaccine, inactivated 12/19/17 Dereje rded influenza virus vaccine, inactivated 05/22/17 Give n influenza virus vaccine, inactivated 12/24/14 Dereje rded hepatitis B adult vaccine 05/10/15 Given hepatitis B adult vaccine 03/19/15 Given tetanus/diphtheria/pertussis, acel(Tdap) 05/07/12 Recorded Medications Acidophilus oral tablet 2 tablet, By Mouth, Daily, 0 Refills, Maintenance, 07/11/14 15:14:49 Start Date: 07/11/14 Status: Ordered Biotin By Mouth, Daily, 0 Refills, Maintenance, 07/11/14 15:15:08 Start Date: 07/11/14 Status: Ordered Caltrate 600 with D 1 tab, By Mouth, Daily, 0 Refills, Maintenance Start Date: 04/13/12 Status: Ordered Mastectomy Bra See Instructions, # [...] Refills, Maintenance Start Date: 07/09/10 Status: Ordered oxybutynin 5 mg oral tablet See Instructions, 0.5 tablet By Mouth 2 times a day, # 90 each, 3 Refills, Maintenance, 10/24/20 13:34:00 EDT, [facility], Partial fill upon patient request if the prescription is fora schedule II opioid drug., 162.7, cm, 10/24/20 13:00:0... Start Date: 10/24/20 Status: Ordered Vitamin C 1000 mg oral tablet 1 tablet = 1,000 mg, By Mouth, Daily, for 30 days, # 30 tablet, 5 Refills, Hard Stop 01/01/21 18:40:00 EDT, 07/05/20 18:40:00 EDT, [facility], 162.7, cm, 04/03/20 11:43:00 EST, Height, 78.6, kg, 11/09/19 11:08:00 EDT, Dry Weight Start Date: 07/05/20 Stop Date: 01/01/21 Status: Ordered Problem List Condition Effective Dates Status Health Status Inform ant Anemia(Confirmed) Active Anxiety disorder(Confirmed) Active Depression(Confirmed) Active Esophageal reflux(Confirmed) Active MIENRVA (generalized anxiety disorder)(Confirmed) Active History of Nimo-en-Y gastric bypass(Confirmed) Active History of breast cancer, Ri ght, IDC, grade II, T2 N0, ER/CT positive, Her-2/sia negative, 2012(Confirmed) Active Impulse control disorder(Confirmed) Active Mood disorder(Confirmed) Active MDD (major depressive disord er), recurrent episode, mild(Confirmed) Active Restless legs syndrome (RLS)(Confirmed) Active Vitamin d deficiency(Confirmed) Active Social History Social History Type Response Smoking Status Never (less than 100 in lifetime) entered on: 10/20/19 Sex
--- OUTSIDE RECORDS SUMMARY | 2023-11-30 09:12 | XMS_ITS | Continuity of Care Document ---
Author Organization [facility] [place] Address [address] [place] [address] [address] [place] [address]- Care Team Providers Care Mortgage Accounting Clerk Name Role Phone Mary Eng MD Primary Care Physician Encounter [facility] Date(s): 02/11/22 - 02/18/22 [facility] [address] [place] [address] Drive [address] [place] [address]- Attending Physician: Chivo FONG, Katherine Camargo Referring Physician: Mary Eng MD Allergies, Adverse Reactions, Alerts Substance Reaction Severity [...] 3 times a day, # 90 tablet, 5 Refills, Maintenance, 01/21/22 14:56:00 EDT, Tablet, [facility], 162.7, cm, 12/16/21 13:04:00 EDT, Height, 92.4, kg, 03/28/21 13:20:00 EST, Dry Weight Start Date: 01/21/22 Stop Date: 07/20/22 Status: Ordered cloNIDine 0.1 mg oral tablet 0.1 mg, 1, tablet, By Mouth, Daily, for 90 days, As needed for anxiety, # 90 tablet, Refills 1, Tot. Refills 1, Hard Stop 07/20/22 14:57:00 EDT, 01/21/22 14:57:00 EDT, Route to Pharmacy Electronically, [facility], 162.7, cm, 12/16/21 13:04... Start Date: 01/21/22 Stop Date: 07/20/22 Status: Ordered duloxetine 30 mg oral enteric coated capsule 1 capsule = 30 mg, By Mouth, Daily, for 90 days, # 90 capsule, 1 Refills, Hard Stop 07/20/22 14:57:00 EDT, 01/21/22 14:57:00 EDT, [facility], correcting to 30mg ONCE a day - dose reduction, 162.7, cm, 12/16/21 13:04:00 EDT, Height, 92.4, k... Start Date: 01/21/22 Stop Date: 07/20/22 Status: Ordered EPINEPHrine 0.3 mg injectable solution = 0.3 mg, Intramuscular, Once, # 1 kit, 1 Refills, Soft Stop, 11/07/21 9:25:00 EDT, [facility], 162.7, cm, 11/07/21 8:48:00 EDT, Height, 92.4, kg, 03/28/21 13:20:00 EST, Dry Weight Start Date: 11/07/21 Status: Ordered ergocalciferol 19314 iu oral capsule See Instructions, TAKE 1 CAPSULE BY MOUTH EVERY WEEK, # 4 capsule, Refills 5, Tot. Refills 5, Maintenance, 11/07/21 9:25:00 EDT, Instructions Replace Required Details, Route to Pharmacy Electronically, [facility], Partial fill upon patient... Start Date: 11/07/21 Status: Ordered gabapentin 100 mg oral capsule See Instructions, 1 capsule By Mouth in AM and 2 capsule PO HS, # 360 capsule, Refills 1, Tot. Refills 1, Maintenance, 01/21/22 14:58:00 EDT, Instructions Replace Required Details, Route to Pharmacy Electronically, [facility], 162.7, cm, 0... Start Date: 01/21/22 Status: Ordered Mastectomy Bra See Instructions, # [...] Refills, Maintenance Start Date: 07/09/10 Status: Ordered omeprazole 20 mg oral delayed release tablet = 20 mg, By Mouth, 2 times a day, # 180 tablet, 0 Refills, Maintenance, 03/02/22 12:04:00 EST, EC Tablet, [facility], 162.7, cm, 12/16/21 13:04:00 EDT, Height, 92.4, kg, 03/28/21 13:20:00 EST, Dry Weight Start Date: 03/02/22 Stop Date: 05/31/22 Status: Ordered omeprazole 20 mg oral delayed release tablet = 20 mg, By Mouth, 2 times a day, for 90 days, # 180 tablet, 1 Refills, Hard Stop 03/02/22 12:04:00EST, 09/03/21 12:04:00 EDT, EC Tablet, [facility] [...] Date: 06/15/22 Stop Date: 12/12/22 Status: Ordered Vivitrol 380 mg intramuscular injection, extended release = 380 mg, Intramuscular, Every 28 days, Every 28 days in our office -delivewred by patients own pharmacy-[facility], # 1 kit, 11 Refills, Maintenance, 08/23/21 7:19:00 EDT, Injection, [facility], [facility] #[id number], 162.7, cm, 08/02/21 11:0... 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, ER/[place] positive, Her-2/sia negative, 2012 Confirmed Active Impulse control disorder Confirmed Active Mood disorder Confirmed Active Obese class I Confirmed Active MDD (major depressive disorder), recurrent episode, mild Confirmed Active Restless legs syndrome (RLS) Confirmed Active Vitamin d deficiency Confirmed Active Vital Signs Most recent to oldest [Reference Range]: 1 Height 165.1 cm (02/11/22 1:57 PM) Weight 85 kg (02/11/22 1:57 PM) Pulse Rate [55-90 bpm] 98 bpm *H* (02/11/22 1:57 PM) Body Mass Index [18.5-24.99 kg/m2] 31.18 kg/m2 *>HHI* (02/11/22 1:57 PM) Blood Pressure [90-138/55-84 mm Hg] 134/ 89mm Hg (02/11/22 1:57 PM) Dry Weight 85 kg (02/11/22 1:57 PM) Dry Weight Obtained Via Standing scale (02/11/22 1:57 PM) Social History Social History Type Response Smoking Status Never (less than 100 in lifetime) entered on: 02/28/21 Sex Patient Care team information Care Team Personnel Name: Viviana Hillman Position: [facility] Onco RN Member Role: Primary Care Nurse Name: Nicole Torrez RN Position: [facility] SN RN Member Role: Primary Care Nurse Name: Irwin Soto CRNA Position: [facility] Associate Professional Member Role: Primary Care Nurse Address: Address: [address] [place] [address] Anesthesia Services [place], [place] [address] Name: Cassandra Clement RN Position: [facility] AMB Nurse Member Role: Primary Care Nurse Name: Aide Mar RN Position: [facility] ED RN W/OE and Tasks Member Role: Primary Care Nurse Name: Mary Eng MD Position: [facility] Primary Care Physician Member Role: PCP Address: Address: [address] [place] [id number]- [place] Name: Kan Wei Position: [facility] Cardio/Pulm Mgr ([facility] Member Role: Primary Care Nurse Name: Jessi Antonio Position: [facility] RN Member Role: Primary Care Nurse Name: Mila Anthony Position: [facility] RN Member Role: Primary Care Nurse Name: Lucian Cline DO Position: [facility] WELDING MACHINE OPERATOR MD Member Role: Lifetime WELDING MACHINE OPERATOR Physician Address: Address: [address] [place], [place] [address]s [facility] [place] [address]- [place] Name: Guerline Yarbrough RN Position: [facility] RN Member Role: Primary Care Nurse Name: Hanane Callaway RN Position: [facility] Onco RN Member Role: Primary Care Nurse Name: Nila Mustafa RN Position: [facility] ED RN W/OE and Tasks Member Role: Primary Care Nurse Name: Donis Mcclellan MD Position: [facility] Psychiatry MD Member Role: Lifetime Consulting Physician Address: Address: [address] [place] [phone]- [place] Care Team Related Persons Name: PHILLIP GOETZ Address: home [address] [place] [address] Name: PHILLIP GOETZ Address: [address] [place] [address] Name: SADA KRAMER Address: home [address] [place] [address]
--- OUTSIDE RECORDS SUMMARY | 2023-11-30 09:12 | XMS_ITS | Continuity of Care Document ---
Author Organization [facility] Address [address] [place] [address] [address] [place] [address]- Care Team Providers Care Dry Press Operator Name Role Phone Kwasi Riggins MD, Mary Primary Care Physician Encounter [facility] Date(s): 02/11/22 - 03/13/22 [facility] [address] [place], [place] [address] Attending Physician: Brielle Oakes Admitting Physician: Brielle Oakes Referring Physician: AdmtrBrielle Allergies, Adverse Reactions, Alerts Substance Reaction Severity [...] Weight Start Date: 11/07/21 Status: Ordered ergocalciferol 10448 iu oral capsule See Instructions, TAKE 1 [...] Date: 03/02/22 Stop Date: 05/31/22 Status: Ordered oxybutynin 5 mg oral tablet See Instructions, 0.5 tablet By Mouth 2 times a day, # 90 each, 3 Refills, Maintenance, 11/21/21 15:26:00 EDT, [facility], Partial fill upon patient request if the prescription is fora schedule II opioid drug., 162.7, cm, 11/21/21 14:52:0... Start Date: 11/21/21 Status: Ordered sulfamethoxazole-trimethoprim 400 mg-80 mg oral tablet 1 tablet, By Mouth, 2 times a day, # 14 tablet, 0 Refills, Maintenance, 03/05/22 8:26:00 EST, Tablet, [facility], Partial fill upon patient request if the prescription is for a schedule II opioid drug., 1 tablet By Mouth 2 times a day, 165... Start Date: 03/05/22 Status: Ordered Vitamin C 1000 mg oral [...] in our office -delivewred by patients own pharmacy-[facility], # 1 kit, 11 Refills, Maintenance, 08/23/21 7:19:00 EDT, Injection, [facility], [facility] #[id number], 162.7, cm, 08/02/21 11:0... 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, ER/[place] positive, Her-2/sia negative, 2012 Confirmed Active Impulse [...] Care Team Personnel Name: Viviana Hillman Position: [facility] Onco RN Member Role: Primary Care Nurse Name: Nicole Torrez RN Position: [facility] SN RN Member Role: Primary Care Nurse Name: Irwin Soto CRNA Position: [facility] Associate Professional Member Role: Primary Care Nurse Address: Address: [address] [place] [address] [place] [address]- Name: Cassandra Clement RN Position: [facility] AMB Nurse Member Role: Primary Care Nurse Name: Aide Mar RN Position: [facility] ED RN W/OE and Tasks Member Role: Primary Care Nurse Name: Mary Eng MD Position: [facility] Primary Care Physician Member Role: PCP Address: Address: [address] [place] [id number]- [place] Name: Kan Wei Position: [facility] Cardio[facility]ulm [place] Member Role: Primary Care Nurse Name: Jessi Antonio Position: [facility] RN Member Role: Primary Care Nurse Name: Mila Anthony Position: [facility] RN Member Role: Primary Care Nurse Name: Lucian Cline DO Position: [facility] GREY ROLL WORKER MD Member Role: Lifetime GREY ROLL WORKER Physician Address: Address: [address] [place] [address] [place] [address]- [place] Name: Guerline Yarbrough RN Position: [facility] RN Member Role: Primary Care Nurse Name: Hanane Callaway RN Position: [facility] Onco RN Member Role: Primary Care Nurse Name: Nila Mustafa RN Position: [facility] ED RN W/OE and Tasks Member Role: Primary Care Nurse Name: Donis Mcclellan MD Position: [facility] Psychiatry MD Member Role: Lifetime Consulting Physician Address: Address: [address] [place] [address]- Care Team Related Persons Name: PHILLIP GOETZ Address: [address] [place] [address] Name: PHILLIP GOETZ Address: [address] [place] [address] Name: SADA KRAMER Address: home [address] [place] [id number]
--- OUTSIDE RECORDS SUMMARY | 2023-11-30 09:12 | XMS_ITS | Continuity of Care Document ---
Author Organization [facility] ter Address [address] [place] [address]- Care Team Providers Care Operations Officer Name Role Phone Kwasi Riggins MD, Alfie Primary Care Physician Encounter 08/06/23 - 08/07/[address] [address] Attending Physician: Not on Staff, Attending MD Referring Physician: Not on Staff, Referring MD Allergies, Adverse Reactions, Alerts Substance Reaction Severity Status Bee Stings severe swelling Active Mold swelling Active NSAIDs History of stomach ulcers 04-JAN-2016 21: 52:31<$> Active Immunizations Given and Recorded Vaccine Date Status Refusal Reason Measles/Mumps/Rubella Virus Vaccine 05/19/22 Given tetanus/diphtheria/pertussis, acel(Tdap) 05/15/22 Given tetanus/diphtheria/pertussis, acel(Tdap) 05/07/12 Recorded influenza virus vaccine, inactivated 12/27/21 Dereje rded influenza virus vaccine, inactivated 04/09/21 Dereje rded influenza virus vaccine, inactivated 11/20/20 Dereje rded influenza virus vaccine, inactivated 12/23/19 Dereje rded influenza virus vaccine, inactivated 04/18/19 Give n influenza virus vaccine, inactivated 12/07/18 Dereje rded influenza virus vaccine, inactivated 12/19/17 Dereje rded influenza virus vaccine, inactivated 05/22/17 Give n influenza virus vaccine, inactivated 12/24/14 Dereje rded [id number] bivalent booster vax 12/27/21 Recorded SARS-CoV-2 (COVID-19) mRNA-1273 vaccine 06/22/21 R ecorded SARS-CoV-2 (COVID-19) mRNA BNT-162b2 vac 01/02/21 Recorded SARS-CoV-2 (COVID-19) mRNA BNT-162b2 vac 05/11/20 Recorded SARS-CoV-2 (COVID-19) mRNA BNT-162b2 vac 04/20/20 Recorded hepatitis B adult vaccine 05/10/15 Given hepatitis B adult vaccine 03/19/15 Given Medications Acidophilus oral tablet 2 tablet, By [...] day, # 90 tablet, 5 Refills, Maintenance, 06/19/23 14:27:00 EDT, Tablet, [facility], 165.1, cm, 04/24/23 10:30:00 EST, Height, 83, kg, 04/24/23 10:30:00 EST, Dry Weight Start Date: 06/19/23 Stop Date: 12/16/23 Status: Ordered cloNIDine 0.1 mg oral tablet 0.1 mg, 1, tablet, By Mouth, Daily, As needed for anxiety, # 90 tablet, Refills 1, Tot. Refills 1, Maintenance, 06/19/23 14:27:00 EDT, Route to Pharmacy Electronically, [facility], 165.1, cm, 04/24/23 10:30:00 EST, Height, 83, kg, 04/24/23... Start Date: 06/19/23 Stop Date: 12/16/23 Status: Ordered duloxetine 30 mg oral enteric coated capsule 1 capsule = 30 mg, By Mouth, 2 times a day, # 180 capsule, 1 Refills, Maintenance, 06/19/23 14:28:00 EDT, [facility], 165.1, cm, 04/24/23 10:30:00 EST, Height, 83, kg, 04/24/23 10:30:00 EST, Dry Weight Start Date: 06/19/23 Stop Date: 12/16/23 Status: Ordered EPINEPHrine 0.3 mg injectable solution = 0.3 mg, Intramuscular, Once, # 1 kit, 1 Refills, Soft Stop, 11/07/21 9:25:00 EDT, [facility], 162.7, cm, 11/07/21 8:48:00 EDT, Height, 92.4, kg, 03/28/21 13:20:00 EST, Dry Weight Start Date: 11/07/21 Status: Ordered ergocalciferol 96126 iu oral capsule See Instructions, TAKE 1 CAPSULE BY MOUTH EVERY WEEK, # 4 capsule, Refills 5, Tot. Refills 5, Maintenance, 04/30/23 17:59:00 EST, Instructions Replace Required Details, Route to Pharmacy Electronically, [facility], Partial fill upon patien... Start Date: 04/30/23 Status: Ordered gabapentin 100 mg oral capsule See Instructions, 1 capsule By Mouth in AM and 2 capsule PO HS, # 270 capsule, Refills 1, Tot. Refills 1, Maintenance, 06/19/23 14:28:00 EDT, Instructions Replace Required Details, Route to Pharmacy Electronically, [facility], 165.1, cm, 0... Start Date: 06/19/23 Status: Ordered gabapentin 300 mg oral capsule 300 mg, 1, capsule, By Mouth, Daily at bedtime, # 90 capsule, Refills 1, Tot. Refills 1, Maintenance, 06/19/23 14:28:00 EDT, Route to Pharmacy Electronically, [facility], Partial fillupon patient request if the prescription is for a sched... Start Date: 06/19/23 Stop Date: 12/16/23 Status: Ordered Mastectomy Bra See Instructions, # 3 each, Refills 1, Tot. Refills 1, Maintenance, History of breast cancer Bilateral mastectomy. Asymmetry due to surgery Diagnosis: C50.911, 07/24/23 14:09:00 EDT, Supply Start Date: 07/24/23 Status: Ordered Mastectomy Prosthesis See Instructions, # [...] By Mouth, 2 times a day, for 84 days, # 168 tablet, 0 Refills, Hard Stop 05/14/24 12:04:00EST, 02/20/24 12:04:00 EST, EC Tablet, [facility], 165.1, cm, 04/24/23 10:30:00 EST, Height, 83, kg, 04/24/23 10:30:00 EST, Dry Weight Start Date: 02/20/24 Stop Date: 05/14/24 Status: Ordered omeprazole 20 mg oral delayed release tablet = 20 mg, By Mouth, 2 times a day, for 90 days, # 60 each, 3 Refills, Hard Stop 02/20/24 12:04:00 EST, 02/25/23 12:04:00 EST, EC Tablet, [facility], 165.1, cm, 05/15/22 7:56:00 EST, Height, 85, kg, 02/11/22 13:57:00 EST, Dry Weight Start Date: 02/25/23 Stop Date: 02/20/24 Status: Ordered oxybutynin 5 mg oral tablet 1 tablet = 5 mg, By Mouth, 2 times a day, # 180 tablet, 3 Refills, Maintenance, 07/24/23 14:07:00 EDT, [facility], 165.1, cm, 07/24/23 13:45:00 EDT, Height, 83, kg, 04/24/23 10:30:00 EST, Dry Weight Start Date: 07/24/23 Status: Ordered sulfamethoxazole-trimethoprim 400 mg-80 mg oral [...] = 1,000 mg, By Mouth, Daily, # 90 tablet, 3 Refills, Soft Stop, 06/10/23 16:44:00 EDT, [facility], 165.1, cm, 05/15/22 7:56:00 EST, Height, 85, kg, 02/11/22 13:57:00 EST, DryWeight Start Date: 06/10/23 Status: Ordered Vivitrol 380 mg intramuscular injection, extended release = 380 mg, Intramuscular, Every 28 days, Every 28 days in our office -delivered by patients own pharmacy-[facility], # 1 each, 11 Refills, Maintenance, 09/05/22 7:10:00 EDT, Injection, [id number], 165.1, cm, 05/15/22 7:56... 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 Confirmed Active History of breast cancer, Right, IDC, grade II, T2 N0, ER/VT positive, Her-2/sia negative, 2012 Confirmed Active Impulse control disorder Confirmed Active Mood disorder Confirmed Active Obese class I Confirmed Active *[id number] 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 Confirmed Active MDD (major depressive disorder), recurrent episode, mild Confirmed Active Restless legs syndrome (RLS) Confirmed Active Vaginal bleeding Confirmed Active Vitamin d deficiency Confirmed Active Results Radiology Reports * Exam Date Time Procedure Performing Provider Status 08/06/23 3:10 PM MRI Abdomen W+W/O Contrast Auth (Verified) Notes: (MRI Abdomen W+W/O Contrast) Reason For Exam: pancreatic cancer screening hepatic steatosis;pancreatic cancer screening hepatic steatosis RESULT: MRI Abdomen W+W/O Contrast [facility] VISIT NUMBER :[id number] Patient Name: Gouvin, John Date of : 1975 Date of Exam: 08-06-2023 Referring Physician: Wilmar Gunderson [address] [place] [address] Exam: MR Abdomen (C-/C+) CPT 17322 Room Description: [facility] 3.0T CLINICAL INDICATION: Pancreatic cancer screening. Hepatic steatosis. Breast cancer. TECHNIQUE: Multiplanar, multisequence pre and post contrast MRI evaluation of the abdomen was performed. 16 cc of Dotarem gadolinium administered intravenously. COMPARISON: MRI abdomen from 03/21/2022 FINDINGS: LOWER THORAX: No pleural or pericardial effusion. Bilateral mastectomies with breast implants. Curvilinear hypointensity within the left breast implant could suggest intracapsular rupture. LIVER: Normal contour and size. Normal parenchymal enhancement. No suspicious lesion. No evidence of hepatic steatosis. GALLBLADDER: Status-post cholecystectomy. BILE DUCTS: Mild biliary ductal dilatation, likely physiologic post-cholecystectomy. SPLEEN: Normal. PANCREAS: Normal. No pancreatic ductal dilatation. ADRENAL GLANDS: No nodules. KIDNEYS: No hydronephrosis. Kidneys enhance symmetrically. No suspicious mass. STOMACH/UPPER GI TRACT: Small hiatal hernia. Stomach and visualized abdominal bowel normal in caliber. PERITONEUM AND RETROPERITONEUM: No loculated fluid collection or peritoneal mass. LYMPH NODES: No lymphadenopathy. VESSELS: Abdominal aorta is nonaneurysmal. Hepatic, portal and splenic veins patent. Visualized inferior vena cava unremarkable. ABDOMINAL WALL: Unremarkable. BONES: Mild degenerative changes involve the spine. IMPRESSION: No evidence of pancreatic mass. No evidence of hepatic steatosis. Bilateral mastectomies with breast implants. Curvilinear hypointensity within the left breast implant could suggest intracapsular rupture. Breast MRI could be considered for further assessment if clinically indicated. Electronically Signed By: Andi Haywood MD Dictated By: Not on Staff , MOOKIE DUKE Dictated Date/Time: 08/06/23 4:24 pm Reviewed By: Not on Staff , MOOKIE DUKE Signed By: Not on Staff , MOOKIE DUKE Signed Date/Time: 08/06/23 4:24 pm Transcribed By: SUNSHINE Transcribed Date/Time: 08/06/23 4:24 pm Social History Social History Type Response Smoking Status Never (less than 100 in lifetime) entered on: 02/28/21 Sex Patient Care team information Care Team Personnel Name: Viviana Hillman Position: [facility] Onco RN Member Role: Primary Care Nurse Name: Nicole Torrez RN Position: [facility] SN RN Member Role: Primary Care Nurse Name: Irwin Soto CRNA Position: [facility] Associate Professional Member Role: Primary Care Nurse Address: Address: [address] [facility] Anesthesia Services [place], [place] - [place] Name: Guerline Piña RN Position: [facility] RN Member Role: Primary Care Nurse Name: Cassandra Clement RN Position: [facility] AMB Nurse Member Role: Primary Care Nurse Name: Aide Mar RN Position: [facility] ED RN W/OE and Tasks Member Role: Primary Care Nurse Name: Mary Eng MD Position: [facility] Physician - Primary Care Member Role: PCP Address: Address: [address] [place] [phone]- [place] Name: Jessi Pittman [place] Position: [facility] MA Member Role: Primary Care Nurse Name: Mila Veronica [place] Position: [facility] Staff Member Role: Primary Care Nurse Name: Lucian Cline DO Position: [facility] VISITOR INFORMATION ASSISTANT MD Member Role: Lifetime VISITOR INFORMATION ASSISTANT Physician Address: Address: [address] [place] [phone]- [place] Name: Hanane Callaway RN Position: [facility] Onco RN Member Role: Primary Care Nurse Name: Nila Mustafa RN Position: [facility] ED RN W/OE and Tasks Member Role: Primary Care Nurse Name: Donis Mcclellan MD Position: [facility] Physician - Behavioral Health Member Role: Lifetime Consulting Physician Address: Address: [address] [place] [phone]- [place] Care Team Related Persons Name: PHILLIP GOETZ Address: [address] [place] [address] Name: PHILLIP GOETZ Address: [address] [place], [place] Name: SADA KRAMER Address: home [address] [place] [address]
--- OUTSIDE RECORDS SUMMARY | 2023-11-30 09:12 | XMS_ITS | Continuity of Care Document ---
Author Organization [facility] Address [address] [place] [address]- Care Team Providers Care Reflexologist Name Role Phone Kwasi Riggins MD, Mary Primary Care Physician Encounter [facility] Date(s): 11/08/19 - 12/08/19 [facility] [address] [place] [address] [facility] Attending Physician: Brielle Oakes Admitting Physician: Brielle Oakes Referring Physician: AdmBrielle be Allergies, Adverse Reactions, Alerts Substance Reaction Severity Status Bee Stings severe swelling Active NSAIDs History of stomach ulcers 04-JAN-2016 21: 52:31<$> Active Mold swelling Active Immunizations Given and Recorded Vaccine Date Status Refusal Reason influenza virus vaccine, inactivated 04/18/19 Give n influenza virus vaccine, inactivated 05/22/17 Give n [...] Refills, Maintenance Start Date: 04/13/12 Status: Ordered Multivitamin By Mouth, Daily, 0 Refills, Maintenance Start Date: 07/09/10 Status: Ordered tamoxifen 20 mg oral tablet 1 tablet = 20 mg, By Mouth, Daily, # 30 tablet, 5 Refills, Maintenance, 08/29/19 17:00:00 EDT, Tablet, [facility], 163, cm, 08/11/19 15:09:00 EDT, Height, 86.5, kg, 04/18/19 8:34:00 EST, Dry Weight Start Date: 08/29/19 Status: Ordered Problem List Condition Effective Dates Status Health Status Inform ant Anemia(Confirmed) Active Anxiety disorder(Confirmed) Active Depression(Confirmed) Active Esophageal reflux(Confirmed) Active MINERVA (generalized anxiety disorder)(Confirmed) Active History of Nimo-en-Y gastric bypass(Confirmed) Active History of breast cancer in female(Confirmed) Active Impulse control disorder(Confirmed) Active Mood disorder(Confirmed) Active MDD (major depressive disord er), recurrent episode, mild(Confirmed) Active Restless legs syndrome (RLS)(Confirmed) Active Vitamin d deficiency(Confirmed) Active Social History Social History Type Response Smoking Status Never (less than 100 in lifetime) entered on: 10/20/19 Sex
--- OUTSIDE RECORDS SUMMARY | 2023-11-30 09:12 | XMS_ITS | Continuity of Care Document ---
Author Organization [facility] Address [address] [place] [address]- Care Team Providers Care Van Cdl Driver Name Role Phone Mary Eng MD Primary Care Physician Encounter [facility] Date(s): 04/16/23 - 05/16/23 [facility] [address] [place] [address]- Allergies, Adverse Reactions, Alerts Substance Reaction Severity [...] influenza virus vaccine, inactivated 12/24/14 Dereje rded [id number] bivalent booster vax 12/27/21 Recorded SARS-CoV-2 (COVID-19) [...] day, # 90 tablet, 5 Refills, Maintenance, 04/17/23 8:23:00 EST, Tablet, [facility], 165.1, cm, 05/15/22 7:56:00 EST, Height, 85, kg, 02/11/22 13:57:00 EST, Dry Weight Start Date: 04/17/23 Stop Date: 10/14/23 Status: Ordered cloNIDine 0.1 mg oral tablet 0.1 mg, 1, tablet, By Mouth, Daily, for 90 days, As needed for anxiety, # 90 tablet, Refills 1, Tot. Refills 1, Hard Stop 08/12/23 8:22:00 EDT, 02/13/23 8:22:00 EST, Route to Pharmacy Electronically,[facility], 165.1, cm, 05/15/22 7:56:00... Start Date: 02/13/23 Stop Date: 08/12/23 Status: Ordered duloxetine 30 mg oral enteric coated capsule 1 capsule = 30 mg, By Mouth, 2 times a day, # 180 capsule, 1 Refills, Maintenance, 02/13/23 8:21:00EST, [facility], 165.1, cm, 05/15/22 7:56:00 EST, Height, 85, kg, 02/11/22 13:57:00EST, Dry Weight Start Date: 02/13/23 Stop Date: 08/12/23 Status: Ordered EPINEPHrine 0.3 mg injectable solution = 0.3 mg, Intramuscular, Once, # 1 kit, 1 Refills, Soft Stop, 11/07/21 9:25:00 EDT, [facility], 162.7, cm, 11/07/21 8:48:00 EDT, Height, 92.4, kg, 03/28/21 13:20:00 EST, Dry Weight Start Date: 11/07/21 Status: Ordered ergocalciferol 91410 iu oral capsule See Instructions, TAKE 1 [...] capsule, Refills 1, Tot. Refills 1, Maintenance, 02/13/23 8:21:00 EST, Instructions Replace Required Details, Route to Pharmacy Electronically, [facility], 165.1, cm, 02... Start Date: 02/13/23 Status: Ordered gabapentin 300 mg oral capsule 300 mg, 1, capsule, By Mouth, Daily at bedtime, dose increase, # 90 capsule, Refills 1, Tot. Refills 1, Maintenance, 04/17/23 8:23:00 EST, Route to Pharmacy Electronically, [facility], Partial fill upon patient request if the prescription... Start Date: 04/17/23 Stop Date: 10/14/23 Status: Ordered Mastectomy Bra See Instructions, # [...] By Mouth, 2 times a day, # 90 each, 3 Refills, Maintenance, 02/25/23 12:04:00 EST, EC Tablet, [facility], 165.1, cm, 05/15/22 7:56:00 EST, Height, 85, kg, 02/11/22 13:57:00 EST, Dry Weight Start Date: 02/25/23 Status: Ordered omeprazole 20 mg oral delayed [...] Status: Ordered oxybutynin 5 mg oral tablet 0.5 tablet, By Mouth, 2 times a day, # 90 tablet, 1 Refills, Maintenance, 02/02/23 16:30:00 EST, [facility], 165.1, cm, 05/15/22 7:56:00 EST, Height, 85, kg, 02/11/22 13:57:00 EST, Dry Weight Start Date: 02/02/23 Stop Date: 08/01/23 Status: Ordered sulfamethoxazole-trimethoprim 400 mg-80 mg oral [...] # 30 tablet, 5 Refills, Hard Stop 06/10/23 16:44:00 EDT, 12/12/22 16:44:00 EDT, [facility], 165.1, cm, 05/15/22 7:56:00 EST, Height,85, kg, 02/11/22 13:57:00 EST, Dry Weight Start Date: 12/12/22 Stop Date: 06/10/23 Status: Ordered Vitamin C 1000 mg oral [...] in our office -delivered by patients own pharmacy-[facility], # 1 each, 11 Refills, Maintenance, 09/05/22 7:10:00 EDT, Injection, [id number], 165.1, cm, 05/15/22 7:56... Start Date: 09/05/22 Stop Date: 08/07/23 Status: Ordered Problem List Condition Confirmation Course Effective Dates Status [facility] Informant Anemia Confirmed Active Anxiety disorder Confirmed Active Alcohol dependence in remission Confirmed Active Esophageal reflux Confirmed Active MINERVA (generalized anxiety disorder) Confirmed Active ERIK gene mutation (+) Confirmed Active History of Nimo-en-Y gastric bypass Confirmed Active History of breast cancer, Right, IDC, grade II, T2 N0, ER/NH positive, Her-2/sia negative, 2012 Confirmed Active Impulse control disorder Confirmed Active Mood disorder Confirmed Active Obese class I Confirmed Active *[id number] 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 MDD (major depressive disorder), recurrent episode, mild Confirmed Active Restless legs syndrome (RLS) Confirmed Active Vaginal bleeding Confirmed Active Vitamin d deficiency Confirmed Active Social History Social History Type Response Smoking Status Never (less than 100 in lifetime) entered on: 02/28/21 Sex Patient Care team information Care Team Personnel Name: Colleen Hillmanricia Position: [facility] Onco RN Member Role: Primary Care Nurse Name: Nicole Torrez RN Position: [facility] SN RN Member Role: Primary Care Nurse Name: Irwin Soto CRNA Position: [facility] Associate Professional Member Role: Primary Care Nurse Address: Address: [address] [place] [address] [place] [address]- [place] Name: Guerline Piña RN Position: [facility] RN Member Role: Primary Care Nurse Name: Cassandra Clement RN Position: [facility] AMB Nurse Member Role: Primary Care Nurse Name: Aide Mar RN Position: [facility] ED RN W/OE and Tasks Member Role: Primary Care Nurse Name: Mary Eng MD Position: [facility] Physician - Primary Care Member Role: PCP Address: Address: [address] [place] [phone]- [place] Name: Jessi Pittman [place] Position: [facility] RN Member Role: Primary Care Nurse Name: Mila Anthony Position: [facility] RN Member Role: Primary Care Nurse Name: Lucian Cline DO Position: [facility] LADLER MD Member Role: Lifetime LADLER Physician Address: Address: [address] [place] [phone]- Name: Hanane Callaway RN Position: [facility] Onco RN Member Role: Primary Care Nurse Name: Nila Mustafa RN Position: [facility] ED RN W/OE and Tasks Member Role: Primary Care Nurse Name: Donis Mcclellan MD Position: [facility] Physician - Behavioral Health Member Role: Lifetime Consulting Physician Address: Address: [address] [place] [phone]- [place] Care Team Related Persons Name: PHILLIP GOETZ Address: [address] [place], [place] Name: PHILLIP GOETZ Address: [address] [place], [place] Name: SADA KRAMER Address: [address] [place] [address]
--- OUTSIDE RECORDS SUMMARY | 2023-11-30 09:12 | XMS_ITS | Continuity of Care Document ---
Author Organization [facility] Address [address] [place] [address]- Care Team Providers Care Florist Designer Name Role Phone Mary Eng MD Primary Care Physician Encounter [facility] Date(s): 04/16/23 - 05/16/23 [facility] [address] [place] [address]- Allergies, Adverse Reactions, Alerts Substance Reaction Severity [...] influenza virus vaccine, inactivated 12/24/14 Dereje rded [id number] bivalent booster vax 12/27/21 Recorded SARS-CoV-2 (COVID-19) [...] Weight Start Date: 11/07/21 Status: Ordered ergocalciferol 03544 iu oral capsule See Instructions, TAKE 1 [...] in our office -delivered by patients own pharmacy-[facility], [facility], # 1 each, 11 Refills, Maintenance, 09/05/22 7:10:00 EDT, Injection, [id number], 165.1, cm, 05/15/22 7:56... Start Date: 09/05/22 Stop Date: 08/07/23 Status: Ordered Problem List Condition Confirmation Course Effective Dates Status [facility] Informant Anemia Confirmed Active Anxiety disorder Confirmed Active Alcohol dependence in remission Confirmed Active Esophageal reflux Confirmed Active MINERVA (generalized anxiety disorder) Confirmed Active ERIK gene mutation (+) Confirmed Active History of Nimo-en-Y gastric bypass Confirmed Active History of breast cancer, Right, IDC, grade II, T2 N0, ER/DE positive, Her-2/sia negative, 2012 Confirmed Active Impulse control disorder Confirmed Active Mood disorder Confirmed Active Obese class I Confirmed Active *[phone] 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 Confirmed Active MDD (major depressive disorder), recurrent episode, mild Confirmed Active Restless legs syndrome (RLS) Confirmed Active Vaginal bleeding Confirmed Active Vitamin d deficiency Confirmed Active Social History Social History Type Response Smoking Status Never (less than 100 in lifetime) entered on: 02/28/21 Sex Patient Care team information Care Team Personnel Name: Colleen Hillmanricia Position: [facility] Onco RN Member Role: Primary Care Nurse Name: Nicole Torrez RN Position: [facility] SN RN Member Role: Primary Care Nurse Name: Irwin Soto CRNA Position: [facility] Associate Professional Member Role: Primary Care Nurse Address: Address: [address] [place] [address] [place] [address]- [place] Name: Guerline Piña RN Position: [facility] RN Member Role: Primary Care Nurse Name: Cassandra Clement RN Position: [facility] AMB Nurse Member Role: Primary Care Nurse Name: Aide Mar RN Position: [facility] ED RN W/OE and Tasks Member Role: Primary Care Nurse Name: Mary Eng MD Position: [facility] Physician - Primary Care Member Role: PCP Address: Address: [address] [place] [phone]- [place] Name: Jessi Pittman [place] Position: [facility] RN Member Role: Primary Care Nurse Name: Mila Anthony Position: [facility] RN Member Role: Primary Care Nurse Name: Lucian Cline DO Position: [facility] SUPERVISOR [employer]HALT PAVING MD Member Role: Lifetime SUPERVISOR [employer] Physician Address: Address: [address] [place] [address]- Name: Hanane Callaway RN Position: [facility] Onco RN Member Role: Primary Care Nurse Name: Nila Mustafa RN Position: [facility] ED RN W/OE and Tasks Member Role: Primary Care Nurse Name: Donis Mcclellan MD Position: [facility] Physician - Behavioral Health Member Role: Lifetime Consulting Physician Address: Address: [address] [place] [phone]- [place] Care Team Related Persons Name: PHILLIP GOETZ Address: [address] [place], [place] Name: PHILLIP GOETZ Address: [address] [place], [place] Name: SADA KRAMER Address: [address] [place] [address]
--- OUTSIDE RECORDS SUMMARY | 2023-11-30 09:12 | XMS_ITS | Continuity of Care Document ---
Author Organization [facility] Address [address] [place] [address]- Care Team Providers Care Java Developer Name Role Phone Kwasi Riggins MD, Mary Primary Care Physician Encounter [facility] Date(s): 07/25/19 - 08/24/[address] [address]- [facility] Attending Physician: Brielle Oakes Admitting Physician: Brielle [...] Daily, # 30 tablet, 5 Refills, Maintenance, 03/01/19 13:40:14 EST, Tablet, 163, cm, 01/12/19 10:27:27 EDT, Height, 84.6, kg, 07/09/18 13:45:07 EDT, Dry Weight Start Date: 03/01/19 Status: Ordered Problem List Condition Effective Dates [...] Social History Type Response Smoking Status Never smoker entered on: 04/28/13 Sex
--- OUTSIDE RECORDS SUMMARY | 2023-11-30 09:12 | XMS_ITS | Continuity of Care Document ---
Author Organization [facility] [place] Address [address] [place] [address]- Care Team Providers Care Fuel Efficient Automobile Designer Name Role Phone Kwasi Riggins MD, Mary Primary Care Physician Encounter [facility] Date(s): 09/12/21 - 10/12/21 [facility] [place] [address] [place] [address]- Allergies, Adverse Reactions, Alerts Substance Reaction Severity Status Bee Stings severe swelling Active Mold swelling Active NSAIDs History of stomach ulcers 04-JAN-2016 21: 52:31<$> Active Immunizations Given and Recorded Vaccine Date Status Refusal Reason SARS-CoV-2 (COVID-19) mRNA BNT-162b2 vac 01/02/21 Recorded SARS-CoV-2 (COVID-19) mRNA BNT-162b2 vac 05/11/20 Recorded SARS-CoV-2 (COVID-19) mRNA BNT-162b2 vac 04/20/20 Recorded influenza virus vaccine, inactivated 11/20/20 Dereje rded [...] 2 times a day, # 90 each, 0 Refills, Maintenance, 09/20/21 15:15:00 EDT, [facility], Partial fill upon patient request if the prescription is fora schedule II opioid drug., 162.7, cm, 08/02/21 11:03:0... 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) Active Depression(Confirmed) Active Esophageal reflux(Confirmed) Active MINERVA (generalized anxiety disorder)(Confirmed) Active History of Nimo-en-Y gastric bypass(Confirmed) Active History of breast cancer, Ri ght, IDC, grade II, T2 N0, ER/[place] positive, Her-2/sia negative, 2012(Confirmed) Active Impulse control disorder(Confirmed) Active Mood disorder(Confirmed) Active Obese class II(Confirmed) Active MDD (major depressive disord er), recurrent episode, mild(Confirmed) Active Restless legs syndrome (RLS)(Confirmed) Active Vitamin d deficiency(Confirmed) Active Social History Social History Type Response Smoking Status Never (less than 100 in lifetime) entered on: 02/28/21 Sex
--- OUTSIDE RECORDS SUMMARY | 2023-11-30 09:13 | XMS_ITS | Continuity of Care Document ---
Author Organization [facility] Address [address] [place] [address]- Care Team Providers Care Coat Room Attendant Name Role Phone Kwasi Riggins MD, Mary Primary Care Physician Encounter [facility] Date(s): 12/20/19 - 01/19/[address] [address]- [facility] Attending Physician: Brielle Oakes Admitting Physician: [...] MINERVA (generalized anxiety disorder)(Confirmed) Active History of Inmo-en-Y gastric bypass(Confirmed) Active History of breast cancer in female(Confirmed) Active Impulse control disorder(Confirmed) Active Mood disorder(Confirmed) Active MDD (major depressive disord er), recurrent episode, mild(Confirmed) Active Restless legs syndrome (RLS)(Confirmed) Active Vitamin d deficiency(Confirmed) Active Social History Social History Type Response Smoking Status Never (less than 100 in lifetime) entered on: 10/20/19 Sex
--- OUTSIDE RECORDS SUMMARY | 2023-11-30 09:13 | XMS_ITS | Continuity of Care Document ---
Author Organization [facility] [place] Address [address] [place] [address]- Care Team Providers Care Toe Puncher Name Role Phone Kwasi Riggins MD, Mary Primary Care Physician Encounter [facility] Date(s): 04/27/23 - 05/27/23 [facility] [place] [address] [place] [address]- Allergies, Adverse Reactions, Alerts Substance Reaction Severity [...] influenza virus vaccine, inactivated 12/24/14 Dereje rded [id number] bivalent booster vax 12/27/21 Recorded SARS-CoV-2 (COVID-19) [...] 180 capsule, 1 Refills, Maintenance, 02/13/23 8:21:00EST, [facility], 165.1, cm, 05/15/22 7:56:00 [...] Weight Start Date: 11/07/21 Status: Ordered ergocalciferol 71026 iu oral capsule See Instructions, TAKE 1 [...] in our office -delivered by [facility] own pharmacy[facility], # 1 each, 11 Refills, Maintenance, 09/05/22 7:10:00 EDT, Injection, [id number], 165.1, cm, 05/15/22 7:56... Start Date: 09/05/22 Stop Date: 08/07/23 Status: Ordered Problem List Condition Confirmation Course Effective Dates Status [facility] atus Informant Anemia Confirmed Active Anxiety disorder Confirmed Active Alcohol dependence in remission Confirmed Active Esophageal reflux Confirmed Active MINERVA (generalized anxiety disorder) Confirmed Active ERIK gene mutation (+) Confirmed Active History of Nimo-en-Y gastric bypass Confirmed Active History of breast cancer, Right, IDC, grade II, T2 N0, ER/[place] positive, Her-2/sia negative, 2012 Confirmed Active Impulse control disorder Confirmed Active Mood disorder Confirmed Active Obese class I Confirmed Active *[id number] Coat Examiner Brooke Aguillon Confirmed Active MDD (major depressive disorder), recurrent episode, mild Confirmed Active Restless legs syndrome (RLS) Confirmed Active Vaginal bleeding Confirmed Active Vitamin d deficiency Confirmed Active Social History Social History Type Response Smoking Status Never (less than 100 in lifetime) entered on: 02/28/21 Sex Patient Care team information Care Team Personnel Name: Rafy Viviana Position: [facility] Onco RN Member Role: Primary Care Nurse Name: Nicole Torrez RN Position: [facility] SN RN Member Role: Primary Care Nurse Name: Irwin Soto CRNA Position: [facility] Associate Professional Member Role: Primary Care Nurse Address: Address: [address] [place] [address] [place] [address]- [place] Name: Guerline Piña RN Position: [facility] RN Member Role: Primary Care Nurse Name: Cassandra Clement RN Position: [facility] AMB Nurse Member Role: Primary Care Nurse Name: Aide Mar RN Position: [facility] ED RN W/OE and Tasks Member Role: Primary Care Nurse Name: Mary Eng MD Position: [facility] Physician - Primary Care Member Role: PCP Address: Address: [address] [place] [address]- Name: Jessi Pittman [place] Position: [facility] RN Member Role: Primary Care Nurse Name: Mila Anthony Position: [facility] RN Member Role: Primary Care Nurse Name: Lucian Cline DO Position: [facility] TRAINING DEVELOPMENT DIRECTOR MD Member Role: Lifetime TRAINING DEVELOPMENT DIRECTOR Physician Address: Address: [address] [place] [address]- Name: Hanane Callaway RN Position: [facility] Onco RN Member Role: Primary Care Nurse Name: Nila Mustafa RN Position: [facility] ED RN W/OE and Tasks Member Role: Primary Care Nurse Name: Donis Mcclellan MD Position: [facility] Physician - Behavioral Health Member Role: Lifetime Consulting Physician Address: Address: [address] [place] [address]- [place] Care Team Related Persons Name: PHILLIP GOETZ Address: home [address], [place] Name: PHILLIP GOETZ Address: home [address], [place] Name: SADA KRAMER Address: home [address] [place] [address]
--- OUTSIDE RECORDS SUMMARY | 2023-11-30 09:13 | XMS_ITS | Continuity of Care Document ---
Author Organization [facility] Primary [facility] [place] Address [address] [place] [address]- Care Team Providers Care Back Order Clerk Name Role Phone Mary Eng MD Primary Care Physician Encounter [facility] Date(s): 07/26/21 - 01/23/22 [facility] [place] [address] [place] [address]- Attending Physician: Mary Eng MD Allergies, Adverse Reactions, [...] Weight Start Date: 11/07/21 Status: Ordered ergocalciferol 64002 iu oral capsule See Instructions, TAKE 1 [...] 0 Refills, Maintenance, 12/17/21 15:08:00 EDT, [facility]; [facility], Partial fill upon patient [...] in our office -delivewred by patients own pharmacy-[facility], # 1 kit, 11 Refills, Maintenance, 08/23/21 7:19:00 EDT, Injection, [facility] #[id number], 162.7, cm, 08/02/21 11:0... 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, ER/[place] positive, Her-2/sia negative, 2012 Confirmed Active Impulse [...] Personnel Name: Mary Eng MD Address: Address: [address] [place] [id number]
--- OUTSIDE RECORDS SUMMARY | 2023-11-30 09:13 | XMS_ITS | Continuity of Care Document ---
Author Organization [facility] Address [address] [place] [address]- Care Team Providers Care Drafter Refrigeration Name Role Phone Kwasi Riggins MD, Mary Primary Care Physician Encounter [facility] Date(s): 03/21/22 - 04/30/[address] [address] Attending Physician: Wilmar Gunderson MD Admitting Physician: Wilmar Gunderson MD Referring Physician: Wilmar Gunderson MD Allergies, Adverse Reactions, Alerts Substance Reaction [...] day, # 90 tablet, 5 Refills, Maintenance, 04/15/22 13:27:00 EST, Tablet, [facility], 165.1, cm, 03/26/22 12:40:00 EST, Height, 85, kg, 02/11/22 13:57:00 EST, Dry Weight Start Date: 04/15/22 Stop Date: 10/12/22 Status: Ordered cloNIDine 0.1 mg oral tablet 0.1 mg, 1, tablet, By Mouth, Daily, for 90 days, As needed for anxiety, # 90 tablet, Refills 1, Tot. Refills 1, Hard Stop 10/12/22 13:27:00 EDT, 04/15/22 13:27:00 EST, Route to Pharmacy Electronically, [facility], 165.1, cm, 03/26/22 12:40... Start Date: 04/15/22 Stop Date: 10/12/22 Status: Ordered duloxetine 30 mg oral enteric coated capsule 1 capsule = 30 mg, By Mouth, Daily, for 90 days, # 90 capsule, 1 Refills, Hard Stop 10/12/22 13:27:00 EDT, 04/15/22 13:27:00 EST, [facility], 165.1, cm, 03/26/22 12:40:00 EST, Height,85, kg, 02/11/22 13:57:00 EST, Dry Weight Start Date: 04/15/22 Stop Date: 10/12/22 Status: Ordered EPINEPHrine 0.3 mg injectable solution = 0.3 mg, Intramuscular, Once, # 1 kit, 1 Refills, Soft Stop, 11/07/21 9:25:00 EDT, [facility], 162.7, cm, 11/07/21 8:48:00 EDT, Height, 92.4, kg, 03/28/21 13:20:00 EST, Dry Weight Start Date: 11/07/21 Status: Ordered ergocalciferol 67580 iu oral capsule See Instructions, TAKE 1 CAPSULE BY MOUTH EVERY WEEK, # 4 capsule, Refills 5, Tot. Refills 5, Maintenance, 04/25/22 17:47:00 EST, Instructions Replace Required Details, Route to Pharmacy Electronically, [facility], Partial fill upon patien... Start Date: 04/25/22 Status: Ordered gabapentin 100 mg oral capsule See Instructions, 1 capsule By Mouth in AM and 2 capsule PO HS, # 360 capsule, Refills 1, Tot. Refills 1, Maintenance, 04/15/22 13:28:00 EST, Instructions Replace Required Details, Route to Pharmacy Electronically, [facility], 165.1, cm, 0... Start Date: 04/15/22 Status: Ordered Mastectomy Bra See Instructions, # [...] day, # 180 tablet, 0 Refills, Maintenance, 05/31/22 12:04:00 EST, EC Tablet, [facility], 165.1, cm, 03/26/22 12:40:00 EST, Height, 85, kg, 02/11/22 13:57:00 EST, Dry Weight Start Date: 05/31/22 Stop Date: 08/29/22 Status: Ordered omeprazole 20 mg oral delayed release tablet = 20 mg, By Mouth, 2 times a day, for 90 days, # 180 tablet, 0 Refills, Hard Stop 05/31/22 12:04:00EST, 03/02/22 12:04:00 EST, EC Tablet, [facility], 162.7, cm, 12/16/21 13:04:00 EDT, Height, 92.4, kg, 03/28/21 13:20:00 EST, Dry Weight Start Date: 03/02/22 Stop Date: 05/31/22 Status: Ordered oxybutynin 5 mg oral tablet 0.5 tablet, By Mouth, 2 times a day, # 90 tablet, 2 Refills, Maintenance, 04/21/22 16:18:00 EST, [facility], 165.1, cm, 03/26/22 12:40:00 EST, Height, 85, kg, 02/11/22 13:57:00 EST, Dry Weight Start Date: 04/21/22 Stop Date: 01/16/23 Status: Ordered sulfamethoxazole-trimethoprim 400 mg-80 mg oral [...] in our office -delivewred by patients own pharmacy-[facility], # 1 kit, 11 Refills, Maintenance, 08/23/21 7:19:00 EDT, Injection, [facility], [facility] #[id number], 162.7, cm, 08/02/21 11:0... 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, ER/[place] positive, Her-2/sia negative, 2012 Confirmed Active Impulse [...] Care Team Personnel Name: Viviana Hillman Position: [facility] Onco RN Member Role: Primary Care Nurse Name: Nicole Torrez RN Position: [facility] SN RN Member Role: Primary Care Nurse Name: Irwin Soto CRNA Position: [facility] Associate Professional Member Role: Primary Care Nurse Address: Address: [address] [place] [address] [place] [address]- Name: Cassandra Clement RN Position: [facility] AMB Nurse Member Role: Primary Care Nurse Name: Aide Mar RN Position: [facility] ED RN W/OE and Tasks Member Role: Primary Care Nurse Name: Mary Eng MD Position: [facility] Primary Care Physician Member Role: PCP Address: Address: [address] [place] [address]- [place] Name: Kan Wei Position: [facility] Cardio/Pulm Mgr [facility] Member Role: Primary Care Nurse Name: Jessi Antonio Position: [facility] RN Member Role: Primary Care Nurse Name: Mial Anthony Position: [facility] RN Member Role: Primary Care Nurse Name: Lucian Cline DO Position: [facility] COORDINATING PRODUCER MD Member Role: Lifetime COORDINATING PRODUCER Physician Address: Address: [address] [place] [address] [facility] [place] [address]- [place] Name: Guerline Yarbrough RN Position: [facility] RN Member Role: Primary Care Nurse Name: Hanane Callaway RN Position: [facility] Onco RN Member Role: Primary Care Nurse Name: Nila Mustafa RN Position: [facility] ED RN W/OE and Tasks Member Role: Primary Care Nurse Name: Donis Mcclellan MD Position: [facility] Psychiatry MD Member Role: Lifetime Consulting Physician Address: Address: [address] [place] [address]- Care Team Related Persons Name: PHILLIP GOETZ Address: [address] [place] [address] Name: PHILLIP GOETZ Address: [address] [place] [address] Name: SADA KRAMER Address: home [address] [place] [address]
--- OUTSIDE RECORDS SUMMARY | 2023-11-30 09:13 | XMS_ITS | Continuity of Care Document ---
Author Organization [facility] [place] Address [address] [place] [address]- Care Team Providers Care Ldr Nurse Name Role Phone Kwasi Riggins MD, Mary Primary Care Physician Encounter [facility] Date(s): 05/21/20 - 06/20/20 [facility] [place] [address] [place] [address]- Allergies, Adverse Reactions, Alerts Substance Reaction Severity [...] Refills, Maintenance Start Date: 07/09/10 Status: Ordered Problem List Condition Effective Dates [...]
--- OUTSIDE RECORDS SUMMARY | 2023-11-30 09:13 | XMS_ITS | Continuity of Care Document ---
Author Organization [facility] [place] Address [address] [place] [address]- Care Team Providers Care Assembler Motor Vehicle Name Role Phone Mary Eng MD Primary Care Physician Encounter [facility] Date(s): 06/01/23 - 07/01/23 [facility] [place] [address] [place] [address]- Allergies, Adverse Reactions, Alerts Substance Reaction Severity [...] influenza virus vaccine, inactivated 12/24/14 Dereje rded [id number] bivalent booster vax 12/27/21 Recorded SARS-CoV-2 (COVID-19) [...] Weight Start Date: 11/07/21 Status: Ordered ergocalciferol 09903 iu oral capsule See Instructions, TAKE 1 [...] 3 Refills, Soft Stop, 06/10/23 16:44:00 EDT, [facility], 165.1, cm, 05/15/22 7:56:00 EST, Height, 85, kg, 02/11/22 13:57:00 EST, DryWeight Start Date: 06/10/23 Status: Ordered Vivitrol 380 mg intramuscular injection, extended release = 380 mg, Intramuscular, Every 28 days, Every 28 days in our office -delivered by patients own pharmacy-[facility], # 1 each, 11 Refills, Maintenance, 09/05/22 7:10:00 EDT, Injection, [facility], [id number], 165.1, cm, 05/15/22 7:56... 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, ER/MD positive, Her-2/sia negative, 2012 Confirmed Active Impulse control disorder Confirmed Active Mood disorder Confirmed Active Obese class I Confirmed Active *[id number] Interventional Radiology Technologist Brooke Aguillon Confirmed Active MDD (major depressive disorder), recurrent episode, mild Confirmed Active Restless legs syndrome (RLS) Confirmed Active Vaginal bleeding Confirmed Active Vitamin d deficiency Confirmed Active Social History Social History Type Response Smoking Status Never (less than 100 in lifetime) entered on: 02/28/21 Sex Patient Care team information Care Team Personnel Name: Viviana Hillman Position: [facility] Onco RN Member Role: Primary Care Nurse Name: Nicole Torrez RN Position: [facility] SN RN Member Role: Primary Care Nurse Name: Irwin Soto CRNA Position: [facility] Associate Professional Member Role: Primary Care Nurse Address: Address: [address] [facility] [place] [address]- [place] Name: Guerline Piña RN Position: [facility] RN Member Role: Primary Care Nurse Name: Cassandra Clement RN Position: [facility] AMB Nurse Member Role: Primary Care Nurse Name: Aide Mar RN Position: [facility] ED RN W/OE and Tasks Member Role: Primary Care Nurse Name: Mary Eng MD Position: [facility] Physician - Primary Care Member Role: PCP Address: Address: [address] [place] [address] - [place] Name: Jessi Pittman [place] Position: [facility] RN Member Role: Primary Care Nurse Name: Mila Anthony Position: [facility] RN Member Role: Primary Care Nurse Name: Lucian Cline DO Position: [facility] BEAM BUILDER HELPER MD Member Role: Lifetime BEAM BUILDER HELPER Physician Address: Address: [address] [place] [address] - [place] Name: Hanane Callaway RN Position: [facility] Onco RN Member Role: Primary Care Nurse Name: Nila Mustafa RN Position: [facility] ED RN W/OE and Tasks Member Role: Primary Care Nurse Name: Donis Mcclellan MD Position: [facility] Physician - Behavioral Health Member Role: Lifetime Consulting Physician Address: Address: [address] [place] [address]- [place] Care Team Related Persons Name: PHILLIP GOETZ Address: home [address], [place] Name: PHILLIP GOETZ Address: [address] [place], [place] Name: SADA KRAMER Address: home [address] [place] [address]
--- OUTSIDE RECORDS SUMMARY | 2023-11-30 09:13 | XMS_ITS | Continuity of Care Document ---
Author Organization [facility] [place] Address [address] [place] [address]- Care Team Providers Care Guide Cruise Name Role Phone Kwasi Riggins MD, Mary Primary Care Physician Encounter [facility] [id number] Date(s): 11/25/19 - 12/25/19 [facility] [address] [address]- [facility] Allergies, Adverse Reactions, Alerts Substance Reaction Severity [...] 5 Refills, Maintenance, 08/29/19 17:00:00 EDT, Tablet, [facility], 163, cm, 08/11/19 15:09:00 EDT, [...]
--- OUTSIDE RECORDS SUMMARY | 2023-11-30 09:13 | XMS_ITS | Continuity of Care Document ---
Author Organization [facility] Primary Car e [place] Address [address] [place] [address]- Care Team Providers Care Tax Preparer Name Role Phone Kwasi Riggins MD, Mary Primary Care Physician Encounter [facility] Date(s): 08/08/22 - 09/07/22 [facility] Care [place] [address] [place] [address]- Allergies, Adverse Reactions, Alerts Substance Reaction Severity [...] influenza virus vaccine, inactivated 12/24/14 Dereje rded [id number] bivalent booster vax 12/27/21 Recorded SARS-CoV-2 (COVID-19) [...] day, # 90 tablet, 5 Refills, Maintenance, 06/27/22 11:19:00 EDT, Tablet, [facility], 165.1, cm, 05/15/22 7:56:00 EST, Height, 85, kg, 02/11/22 13:57:00 EST, Dry Weight Start Date: 06/27/22 Stop Date: 12/24/22 Status: Ordered cloNIDine 0.1 mg oral tablet 0.1 mg, 1, tablet, By Mouth, Daily, for 90 days, As needed for anxiety, # 90 tablet, Refills 1, Tot. Refills 1, Hard Stop 12/24/22 11:20:00 EDT, 06/27/22 11:20:00 EDT, Route to Pharmacy Electronically, [facility], 165.1, cm, 05/15/22 7:56:... Start Date: 06/27/22 Stop Date: 12/24/22 Status: Ordered duloxetine 30 mg oral enteric coated capsule 1 capsule = 30 mg, By Mouth, Daily, for 90 days, # 90 capsule, 1 Refills, Hard Stop 12/24/22 11:20:00 EDT, 06/27/22 11:20:00 EDT, [facility], 165.1, cm, 05/15/22 7:56:00 EST, Height, 85, kg, 02/11/22 13:57:00 EST, Dry Weight Start Date: 06/27/22 Stop Date: 12/24/22 Status: Ordered EPINEPHrine 0.3 mg injectable solution = 0.3 mg, Intramuscular, Once, # 1 kit, 1 Refills, Soft Stop, 11/07/21 9:25:00 EDT, [facility], 162.7, cm, 11/07/21 8:48:00 EDT, Height, 92.4, kg, 03/28/21 13:20:00 EST, Dry Weight Start Date: 11/07/21 Status: Ordered ergocalciferol 10059 iu oral capsule See Instructions, TAKE 1 [...] capsule, Refills 1, Tot. Refills 1, Maintenance, 06/27/22 11:20:00 EDT, Instructions Replace Required Details, Route to Pharmacy Electronically, [facility], 165.1, cm, 0... Start Date: 06/27/22 Status: Ordered Mastectomy Bra See Instructions, # [...] day, # 180 tablet, 0 Refills, Maintenance, 08/29/22 12:04:00 EDT, EC Tablet, [facility], 165.1, cm, 05/15/22 7:56:00 EST, Height, 85, kg, 02/11/22 13:57:00 EST, Dry Weight Start Date: 08/29/22 Stop Date: 11/27/22 Status: Ordered oxybutynin 5 mg oral tablet [...] # 30 tablet, 5 Refills, Hard Stop 12/12/22 16:44:00 EDT, 06/15/22 16:44:00 EDT, [facility], 162.7, cm, 12/16/21 13:04:00 EDT, Height, 92.4, kg, 03/28/21 13:20:00 EST, Dry Weight Start Date: 06/15/22 Stop Date: 12/12/22 Status: Ordered Vitamin C 1000 mg oral tablet 1 tablet = 1,000 mg, By Mouth, Daily, # 30 tablet, 5 Refills, Soft Stop, 12/12/22 16:44:00 EDT, [facility], 165.1, cm, 05/15/22 7:56:00 EST, Height, 85, kg, 02/11/22 13:57:00 EST, DryWeight Start Date: 12/12/22 Stop Date: 06/10/23 Status: Ordered Vivitrol 380 mg intramuscular injection, extended release = 380 mg, Intramuscular, Every 28 days, Every 28 days in our office -delivered by patients own pharmacy-[facility] Neal, # 1 each, 11 Refills, Maintenance, 09/05/22 7:10:00 EDT, Injection, Community, [facility] #[id number], 165.1, cm, 05/15/22 7:56... 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, ER/MI positive, Her-2/sia negative, 2012 Confirmed Active Impulse [...] Care Team Personnel Name: Viviana Hillman Position: [facility] Onco RN Member Role: Primary Care Nurse Name: Nicole Torrez RN Position: [facility] SN RN Member Role: Primary Care Nurse Name: Irwin Soto CRNA Position: [facility] Associate Professional Member Role: Primary Care Nurse Address: Address: [address] [place] [address] Anesthesia Services [place], [place] [address] Name: Cassandra Clement RN Position: [facility] AMB Nurse Member Role: Primary Care Nurse Name: Aide Mar RN Position: [facility] ED RN W/OE and Tasks Member Role: Primary Care Nurse Name: Mary Eng MD Position: [facility] Physician - Primary Care Member Role: PCP Address: Address: [address] [place] [address]- [place] Name: Kan Wie Position: [facility] Cardio/Pulm Mgr ([facility]) Member Role: Primary Care Nurse Name: Jessi Pittman [place] Position: [facility] RN Member Role: Primary Care Nurse Name: Mila Anthony Position: [facility] RN Member Role: Primary Care Nurse Name: Lucian Cline DO Position: [facility] LIFT SLAB OPERATOR MD Member Role: Lifetime LIFT SLAB OPERATOR Physician Address: Address: [address] [place], [place] [address]s [facility] [place] [address]- [place] Name: Guerline Yarbrough RN Position: [facility] RN Member Role: Primary Care Nurse Name: Hanane Callaway RN Position: [facility] Onco RN Member Role: Primary Care Nurse Name: Nila Mustafa RN Position: [facility] ED RN W/OE and Tasks Member Role: Primary Care Nurse Name: Donis Mcclellan MD Position: [facility] Physician - Behavioral Health Member Role: Lifetime Consulting Physician Address: Address: [address] [place] [address]- Care Team Related Persons Name: PHILLIP GOETZ Address: home [address] [place] [address] Name: PHILLIP GOETZ Address: home [address] [place], [place] Name: SADA KRAMER Address: home [address] [place] [address]
--- OUTSIDE RECORDS SUMMARY | 2023-11-30 09:13 | XMS_ITS | Continuity of Care Document ---
Author Organization [facility] Primary Car e [place] Address [address] [place] [address]- Care Team Providers Care Electronic Court Recorder Name Role Phone Kwasi Riggins MD, Mary Primary Care Physician Encounter [facility] Date(s): 05/18/22 - 06/17/22 [facility] Care [place] [address] [place] [address]- Allergies, Adverse Reactions, Alerts Substance Reaction Severity [...] influenza virus vaccine, inactivated 12/24/14 Dereje rded [id number] bivalent booster vax 12/27/21 Recorded SARS-CoV-2 (COVID-19) [...] Weight Start Date: 11/07/21 Status: Ordered ergocalciferol 96762 iu oral capsule See Instructions, TAKE 1 [...] Date: 05/31/22 Stop Date: 08/29/22 Status: Ordered oxybutynin 5 mg oral tablet [...] in our office -delivewred by patients own pharmacy-[facility] Mariamaeens, # 1 kit, 11 Refills, Maintenance, 08/23/21 7:19:00 EDT, Injection, Community, [facility] #[id number], 162.7, cm, 08/02/21 11:0... Start Date: 08/23/21 [...] Care Team Personnel Name: Viviana Hillman Position: [facility] Onco RN Member Role: Primary Care Nurse Name: Nicole Torrez RN Position: [facility] SN RN Member Role: Primary Care Nurse Name: Irwin Soto CRNA Position: [facility] Associate Professional Member Role: Primary Care Nurse Address: Address: [address] [place] [address] [place] [address]- Name: Cassandra Clement RN Position: [facility] AMB Nurse Member Role: Primary Care Nurse Name: Aide Mar RN Position: [facility] ED RN W/OE and Tasks Member Role: Primary Care Nurse Name: Mary Eng MD Position: [facility] Primary Care Physician Member Role: PCP Address: Address: [address] [place] [address]- [place] Name: Kan Wei Position: [facility] Cardio/Pulm Mgr ([facility]) Member Role: Primary Care Nurse Name: Jessi Antonio Position: [facility] RN Member Role: Primary Care Nurse Name: Mila Anthony Position: [facility] RN Member Role: Primary Care Nurse Name: Lucian Cline DO Position: [facility] SALT GRINDER MD Member Role: Lifetime SALT GRINDER Physician Address: Address: [address] [place] [address] [place] [address]- [place] Name: Guerline Yarbrough RN Position: [facility] RN Member Role: Primary Care Nurse Name: Hanane Callaway RN Position: [facility] Onco RN Member Role: Primary Care Nurse Name: Nila Mustafa RN Position: [facility] ED RN W/OE and Tasks Member Role: Primary Care Nurse Name: Donis Mcclellan MD Position: [facility] Psychiatry MD Member Role: Lifetime Consulting Physician Address: Address: [address] [place] [address]- Care Team Related Persons Name: PHILLIP GOETZ Address: [address] [place] [address] Name: PHILLIP GOETZ Address: [address] [place] [address] Name: SADA KRAMER Address: home [address] [place] [address]
--- OUTSIDE RECORDS SUMMARY | 2023-11-30 09:13 | XMS_ITS | Continuity of Care Document ---
Author Organization [facility] Primary Car e [place] Address [address] [place] [address]- Care Team Providers Care Lean Process Deployment Consultant Name Role Phone Mary Eng MD Primary Care Physician Encounter [facility] [id number] Date(s): 01/04/20 - 05/03/20 [facility] Primary Care [address] [address]- Attending Physician: Mary Eng MD Admitting Physician: Mary Eng MD Allergies, Adverse Reactions, [...]
--- OUTSIDE RECORDS SUMMARY | 2023-11-30 09:13 | XMS_ITS | Continuity of Care Document ---
Author Organization [facility] Primary Car e [place] Address [address] [place] [address]- Care Team Providers Care Grain Farmworker Name Role Phone Kwasi Riggins MD, Mary Primary Care Physician Encounter [facility] Date(s): 02/02/20 - 03/03/20 [facility] Primary Care [address] [address]- Allergies, Adverse Reactions, Alerts Substance Reaction Severity [...]
--- OUTSIDE RECORDS SUMMARY | 2023-11-30 09:13 | XMS_ITS | Continuity of Care Document ---
Author Organization [facility] Address [address] [place] [address]- Care Team Providers Care Specialty Trimmer Name Role Phone Kwasi Riggins MD, Mary Primary Care Physician Encounter [facility] Date(s): 08/11/19 - 08/18/[address] [facility] [address] [address]- [facility] Attending Physician: Jackelyn DUKE, Callie Crespo Admitting Physician: Callie Hayden MD Referring Physician: Mary Eng MD Allergies, Adverse [...] 07/11/14 15:15:08 Start Date: 07/11/14 Status: Ordered biotin 5000 mcg oral capsule See Instructions, Take 1 capsule by mouth daily, # 28 capsule, 0 Refills, Maintenance, 07/08/19 15:26:00 EDT, [facility], 163, cm, 04/18/19 8:34:00 EST, Height, 86.5, kg, 04/18/19 8:34:00 EST, Dry Weight Start Date: 07/08/19 Status: Ordered Caltrate 600 with D 1 [...] syndrome (RLS)(Confirmed) Active Vitamin d deficiency(Confirmed) Active Vital Signs Most recent to oldest [Reference Range]: 1 2 Height 163 cm (08/11/19 3:09 PM) 163 cm (08/10/19 1:34 PM) Weight 86 kg (08/11/19 3:09 PM) 86 kg (08/10/19 1:34 PM) Body Mass Index [18.5-24.99] 32.37 *>HHI* (08/10/19 1:34 PM) Social History Social History Type Response Smoking Status Never smoker entered on: 04/28/13 Sex
--- OUTSIDE RECORDS SUMMARY | 2023-11-30 09:13 | XMS_ITS | Continuity of Care Document ---
Author Organization [facility] Address [address] [place] [address]- Care Team Providers Care Investment Recovery Technician Name Role Phone Mary Eng MD Primary Care Physician Encounter [facility] Date(s): 04/07/19 - 04/14/[address] [address]- [facility] Attending Physician: Mary Eng MD Allergies, Adverse Reactions, Alerts Substance Reaction Severity Status Bee Stings severe swelling Active Mold swelling Active NSAIDs History of stomach ulcers 04-JAN-2016 21: 52:31<$> Active Immunizations Given and Recorded Vaccine Date Status Refusal Reason influenza virus vaccine, inactivated 05/22/17 Give n [...] Dry Weight Start Date: 03/01/19 Status: Ordered Vivitrol 380 mg intramuscular injection, extended release Intramuscular, Every 28 days, 0 Refills, Maintenance, 07/15/17 11:26:51 EDT Start Date: 07/15/17 Status: Ordered Problem List Condition Effective Dates Status Health Status Inform ant Anemia(Confirmed) Active Anxiety disorder(Confirmed) Active Breast carcinoma(Confirmed) 03/30/12 Active Depression(Confirmed) Active Esophageal reflux(Confirmed) Active MINERVA (generalized anxiety disorder)(Confirmed) Active History of Nimo-en-Y gastric bypass(Confirmed) Active Impulse control disorder(Confirmed) Active Mood disorder(Confirmed) Active Post-traumatic stress disorder(Confirmed) Active MDD (major depressive disord er), recurrent episode, mild(Confirmed) Active Restless legs syndrome (RLS)(Confirmed) Active Vitamin d deficiency(Confirmed) Active Social History Social History Type Response Smoking Status Never smoker entered on: 04/28/13 Sex
--- OUTSIDE RECORDS SUMMARY | 2023-11-30 09:13 | XMS_ITS | Continuity of Care Document ---
Author Organization [facility] Primary Car e [place] Address [address] [place] [address]- Care Team Providers Care Insulation Supervisor Name Role Phone Kwasi Riggins MD, Mary Primary Care Physician Encounter [facility] Date(s): 11/27/20 - 12/27/20 [facility] Care [place] [address] [place] [address]- Allergies, Adverse Reactions, Alerts Substance Reaction Severity [...] Bilateral mastectomy. Asymmetry due to surgery Diagnosis: C50.1, 10/24/20 13:51:00 EDT, Supply Start Date: 10/24/20 Status: Ordered Mastectomy Prosthesis See Instructions, # 2 each, Refills 1, Tot. Refills 1, Maintenance, History of breast cancer Bilateral mastectomy. 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
--- OUTSIDE RECORDS SUMMARY | 2023-11-30 09:13 | XMS_ITS | Continuity of Care Document ---
Author Organization [facility] Primary Car e [place] Address [address] [place] [address]- Care Team Providers Care Preparing Box Tender Name Role Phone Kwasi Riggins MD, Mary Primary Care Physician Encounter [facility] Date(s): 03/26/22 - 04/25/22 [facility] Care [place] [address] [place] [address]- Allergies, Adverse Reactions, Alerts Substance Reaction Severity [...] Weight Start Date: 11/07/21 Status: Ordered ergocalciferol 09823 iu oral capsule See Instructions, TAKE 1 [...] 7:19:00 EDT, Injection, Community, [facility][id number], 162.7, cm, 08/02/21 11:0... 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, 2012 Confirmed Active Impulse [...] Care Team Personnel Name: Viviana Hillman Position: [facility] Onco RN Member Role: Primary Care Nurse Name: Nicole Torrez RN Position: [facility] SN RN Member Role: Primary Care Nurse Name: Irwin Soto CRNA Position: [facility] Associate Professional Member Role: Primary Care Nurse Address: Address: [address] [place] [address] [place] [address]- Name: Cassandra Clement RN Position: [facility] AMB Nurse Member Role: Primary Care Nurse Name: Aide Mar RN Position: [facility] ED RN W/OE and Tasks Member Role: Primary Care Nurse Name: Mary Eng MD Position: [facility] Primary Care Physician Member Role: PCP Address: Address: [address] [place] [address]- Name: Kan Wei Position: [facility] Cardio/Pulm Mgr ([facility]) Member Role: Primary Care Nurse Name: Jessi Antonio Position: [facility] RN Member Role: Primary Care Nurse Name: Mila Anthony Position: [facility] RN Member Role: Primary Care Nurse Name: Lucian Cline DO Position: [facility] DRONE OPERATOR MD Member Role: Lifetime DRONE OPERATOR Physician Address: Address: [address] [place] [address] [employer] Trade Sales [place] [address]- [place] Name: Guerline Yarbrough RN Position: [facility] RN Member Role: Primary Care Nurse Name: Hanane Callaway RN Position: [facility] Onco RN Member Role: Primary Care Nurse Name: Nila Mustafa RN Position: [facility] ED RN W/OE and Tasks Member Role: Primary Care Nurse Name: Donis Mcclellan MD Position: [facility] Psychiatry MD Member Role: Lifetime Consulting Physician Address: Address: [address] [place] [address]- Care Team Related Persons Name: PHILLIP GOETZ Address: [address] [place] [address] Name: PHILLIP GOETZ Address: home [address] [place] [address] Name: SADA KRAMER Address: home [address] [place] [address]
--- OUTSIDE RECORDS SUMMARY | 2023-11-30 09:13 | XMS_ITS | Continuity of Care Document ---
Author Organization [facility] Address [address] [place] [address]- Care Team Providers Care Car Mover Name Role Phone Kwasi Riggins MD, Mary Primary Care Physician Encounter [facility] Date(s): 07/27/23 - 08/26/23 [facility] [address] [place] [address]- Allergies, Adverse Reactions, Alerts Substance Reaction Severity [...] influenza virus vaccine, inactivated 12/24/14 Dereje rded [id number] bivalent booster vax 12/27/21 Recorded SARS-CoV-2 (COVID-19) [...] 06/19/23 14:27:00 EDT, Route to Pharmacy Electronically, [facility], 165.1, cm, 04/24/23 10:30:00 EST, [...] Weight Start Date: 11/07/21 Status: Ordered ergocalciferol 69749 iu oral capsule See Instructions, TAKE 1 [...] our office -delivered by patients own pharmacy-[facility], # 1 each, 11 Refills, Maintenance, 09/05/22 7:10:00 EDT, Injection, Community, [facility] #[id number], 165.1, cm, 05/15/22 7:56... 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, ER/[place] positive, Her-2/sia negative, 2012 Confirmed Active Impulse control disorder Confirmed Active Mood disorder Confirmed Active Obese class I Confirmed Active *[phone] Image Scientist Brooke Aguillon Confirmed Active MDD (major depressive disorder), recurrent episode, mild Confirmed Active Restless legs syndrome (RLS) Confirmed Active Vaginal bleeding Confirmed Active Vitamin d deficiency Confirmed Active Social History Social History Type Response Smoking Status Never (less than 100 in lifetime) entered on: 02/28/21 Sex Patient Care team information Care Team Personnel Name: Viviana Hillman Position: [facility] Onco RN Member Role: Primary Care Nurse Name: Nicole Torrez RN Position: [facility] SN RN Member Role: Primary Care Nurse Name: Irwin Soto CRNA Position: [facility] Associate Professional Member Role: Primary Care Nurse Address: Address: [address] [facility] Anesthesia Services [place], [place] - [place] Name: Guerline Piña RN Position: [facility] RN Member Role: Primary Care Nurse Name: Cassandra Clement RN Position: [facility] AMB Nurse Member Role: Primary Care Nurse Name: Aide Mar RN Position: [facility] ED RN W/OE and Tasks Member Role: Primary Care Nurse Name: Mary Eng MD Position: [facility] Physician - Primary Care Member Role: PCP Address: Address: [address] [place] [address] - [place] Name: Jessi Pittman [place] Position: [facility] Office Staff Member Role: Primary Care Nurse Name: Mila Veronica [place] Position: [facility] Office Staff Member Role: Primary Care Nurse Name: Lucian Cline DO Position: [facility] HEALTHCARE RECEPTIONIST MD Member Role: Lifetime HEALTHCARE RECEPTIONIST Physician Address: Address: [address] [place] [address] - [place] Name: Hanane Callaway RN Position: [facility] Onco RN Member Role: Primary Care Nurse Name: Nila Mustafa RN Position: [facility] ED RN W/OE and Tasks Member Role: Primary Care Nurse Name: Donis Mcclellan MD Position: [facility] Physician - Behavioral Health Member Role: Lifetime Consulting Physician Address: Address: [address] [place] [address] - [place] Care Team Related Persons Name: PHILLIP GOETZ Address: home [address] [place], [place] Name: PHILLIP GOETZ Address: [address] [place], [place] Name: SADA KRAMER Address: home [address] [place] [address]
--- OUTSIDE RECORDS SUMMARY | 2023-11-30 09:13 | XMS_ITS | Continuity of Care Document ---
Author Organization [facility] Primary Car e [place] Address [address] [place] [address]- Care Team Providers Care Delicatessen Clerk Name Role Phone Kwasi Riggins MD, Mary Primary Care Physician Encounter [facility] Date(s): 05/19/22 - 06/18/22 [facility] Care [place] [address] [place] [address]- Allergies, Adverse Reactions, Alerts Substance Reaction Severity [...] influenza virus vaccine, inactivated 12/24/14 Dereje rded [id number] bivalent booster vax 12/27/21 Recorded SARS-CoV-2 (COVID-19) [...] Weight Start Date: 11/07/21 Status: Ordered ergocalciferol 15390 iu oral capsule See Instructions, TAKE 1 [...] in our office -delivewred by patients own pharmacy-[facility] Mariamaeens, # 1 kit, 11 Refills, Maintenance, 08/23/21 7:19:00 EDT, Injection, Community, [facility] #[id number], 162.7, cm, 08/02/21 11:0... 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, ER/GA positive, Her-2/sia negative, 2012 Confirmed Active Impulse [...] Care Team Personnel Name: Viviana Hillman Position: [facility] Onco RN Member Role: Primary Care Nurse Name: Nicole Torrez RN Position: [facility] SN RN Member Role: Primary Care Nurse Name: Irwin Soto CRNA Position: [facility] Associate Professional Member Role: Primary Care Nurse Address: Address: [address] [place] [address] [place] [address]- Name: Cassandra Clement RN Position: [facility] AMB Nurse Member Role: Primary Care Nurse Name: Aide Mar RN Position: [facility] ED RN W/OE and Tasks Member Role: Primary Care Nurse Name: Mary Eng MD Position: [facility] Primary Care Physician Member Role: PCP Address: Address: [address] [place] [address]- [place] Name: Kan Wei Position: [facility] Cardio/Pulm Mgr ([facility]) Member Role: Primary Care Nurse Name: Jessi Antonio Position: [facility] RN Member Role: Primary Care Nurse Name: Mila Anthony Position: [facility] RN Member Role: Primary Care Nurse Name: Lucian Cline DO Position: [facility] MACHINERY ERECTOR MD Member Role: Lifetime MACHINERY ERECTOR Physician Address: Address: [address] [place] [address] [employer] [place] [address]- [place] Name: Guerline Yarbrough RN Position: [facility] RN Member Role: Primary Care Nurse Name: Hanane Callaway RN Position: [facility] Onco RN Member Role: Primary Care Nurse Name: Nila Mustafa RN Position: [facility] ED RN W/OE and Tasks Member Role: Primary Care Nurse Name: Donis Mcclellan MD Position: [facility] Psychiatry MD Member Role: Lifetime Consulting Physician Address: Address: [address] [place] [address]- Care Team Related Persons Name: PHILLIP GOETZ Address: [address] [place] [address] Name: PHILLIP GOETZ Address: [address] [place] [address] Name: SADA KRAMER Address: home [address] [place] [id number]
--- OUTSIDE RECORDS SUMMARY | 2023-11-30 09:13 | XMS_ITS | Continuity of Care Document ---
Author Organization [facility] [place] Address [address] [place] [address]- Care Team Providers Care Geological Survey Field Assistant Name Role Phone Mary Eng MD Primary Care Physician Encounter [facility] Date(s): 04/16/23 - 05/16/23 [facility] [place] [address] [place] [address]- Allergies, Adverse Reactions, Alerts Substance Reaction Severity [...] influenza virus vaccine, inactivated 12/24/14 Dereje rded [id number] bivalent booster vax 12/27/21 Recorded SARS-CoV-2 (COVID-19) [...] Weight Start Date: 11/07/21 Status: Ordered ergocalciferol 55041 iu oral capsule See Instructions, TAKE 1 [...] in our office -delivered by patients own pharmacy-[facility] [employer], # 1 each, 11 Refills, Maintenance, 09/05/22 7:10:00 EDT, Injection, [facility], [id number], 165.1, cm, 05/15/22 7:56... Start Date: 09/05/22 Stop Date: 08/07/23 Status: Ordered Problem List Condition Confirmation Course Effective Dates Status 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-Y gastric bypass Confirmed Active History of breast cancer, Right, IDC, grade II, T2 N0, ER/[place] positive, Her-2/sia negative, 2012 Confirmed Active Impulse control disorder Confirmed Active Mood disorder Confirmed Active Obese class I Confirmed Active *[id number] Automatic Silk Screen Printer Brooke Aguillon Confirmed Active MDD (major depressive disorder), recurrent episode, mild Confirmed Active Restless legs syndrome (RLS) Confirmed Active Vaginal bleeding Confirmed Active Vitamin d deficiency Confirmed Active Social History Social History Type Response Smoking Status Never (less than 100 in lifetime) entered on: 02/28/21 Sex Patient Care team information Care Team Personnel Name: Colleen Hillmanricia Position: [facility] Onco RN Member Role: Primary Care Nurse Name: Nicole Torrez RN Position: [facility] SN RN Member Role: Primary Care Nurse Name: Irwin Soto CRNA Position: [facility] Associate Professional Member Role: Primary Care Nurse Address: Address: [address] [place] [address] [place] [address]- [place] Name: Guerline Piña RN Position: [facility] RN Member Role: Primary Care Nurse Name: Cassandra Clement RN Position: [facility] AMB Nurse Member Role: Primary Care Nurse Name: Aide Mar RN Position: [facility] ED RN W/OE and Tasks Member Role: Primary Care Nurse Name: Mary Eng MD Position: [facility] Physician - Primary Care Member Role: PCP Address: Address: [address] [place] [address]- [place] Name: Jessi Pittman [place] Position: [facility] RN Member Role: Primary Care Nurse Name: Mila Anthony Position: [facility] RN Member Role: Primary Care Nurse Name: Lucian Cline DO Position: [facility] PYROGLAZER MD Member Role: Lifetime PYROGLAZER Physician Address: Address: [address] [place] [address]- Name: Hanane Callaway RN Position: [facility] Onco RN Member Role: Primary Care Nurse Name: Nila Mustafa RN Position: [facility] ED RN W/OE and Tasks Member Role: Primary Care Nurse Name: Donis Mcclellan MD Position: [facility] Physician - Behavioral Health Member Role: Lifetime Consulting Physician Address: Address: [address] [place] [address]- [place] Care Team Related Persons Name: PHILLIP GOETZ Address: home [address] [place], [place] Name: PHILLIP GOETZ Address: home [address] [place], [place] Name: SADA KRAMER Address: home [address] [place] [address]
--- OUTSIDE RECORDS SUMMARY | 2023-11-30 09:13 | XMS_ITS | Continuity of Care Document ---
Author Organization [facility] yulia Address [address] [place] [address] [address] [place] [address]- Care Team Providers Care Shell Coremaker Name Role Phone Mary Eng MD Primary Care Physician [facility]counter [facility] Date(s): 11/27/21 - 03/13/22 [facility] [address] [place] [address]- Attending Physician: Rich Ross MD Referring Physician: Mary Eng MD Allergies, [...] Weight Start Date: 11/07/21 Status: Ordered ergocalciferol 58901 iu oral capsule See Instructions, TAKE 1 [...] each, 3 Refills, Maintenance, 11/21/21 15:26:00 EDT, [facility], Partial fill upon patient [...] in our office -delivewred by patients own pharmacy-[facility], # 1 kit, 11 Refills, Maintenance, 08/23/21 7:19:00 EDT, Injection, [facility], [facility] #[id number], 162.7, cm, 08/02/21 11:0... 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, ER/SD positive, Her-2/sia negative, 2013 Confirmed Active Impulse control disorder Confirmed Active [...] Team Personnel Name: Viviana Hillman Position: [facility] Onco RN Member Role: Primary Care Nurse Name: Nicole Torrez RN Position: [facility] SN RN Member Role: Primary Care Nurse Name: Irwin Soto CRNA Position: [facility] Associate Professional Member Role: Primary Care Nurse Address: Address: [address] [place] [address] [place] [address]- Name: Cassandra Clement RN Position: [facility] AMB Nurse Member Role: Primary Care Nurse Name: Aide Mar RN Position: [facility] ED RN W/OE and Tasks Member Role: Primary Care Nurse Name: Mary Eng MD Position: [facility] Primary Care Physician Member Role: PCP Address: Address: [address] [place] [address]- [place] Name: Kan Wei Position: [facility] Cardio/Pulm Mgr ([facility]) Member Role: Primary Care Nurse Name: Jessi Antonio Position: [facility] RN Member Role: Primary Care Nurse Name: Mila Anthony Position: [facility] RN Member Role: Primary Care Nurse Name: Lucian Cline DO Position: [facility] WHIPPED TOPPING SUPERVISOR MD Member Role: Lifetime WHIPPED TOPPING SUPERVISOR Physician Address: Address: [address] [place] [address] [place] [address]- [place] Name: Guerline Yarbrough RN Position: [facility] RN Member Role: Primary Care Nurse Name: Hanane Callaway RN Position: [facility] Onco RN Member Role: Primary Care Nurse Name: Nila Mustafa RN Position: [facility] ED RN W/OE and Tasks Member Role: Primary Care Nurse Name: Donis Mcclellan MD Position: [facility] Psychiatry MD Member Role: Lifetime Consulting Physician Address: Address: [address] [place] [address]- Care Team Related Persons Name: PHILLIP GOETZ Address: home [address] [place] [address] Name: PHILLIP GOETZ Address: home [address] [place] [address] Name: SADA KRAMER Address: home [address] [place] [address]
--- OUTSIDE RECORDS SUMMARY | 2023-11-30 09:13 | XMS_ITS | Continuity of Care Document ---
Author Organization [facility] Primary [facility] [place] Address [address] [place] [address]- Care Team Providers Care Pilot Name Role Phone Kwasi Riggins MD, Mary Primary Care Physician Encounter [facility] Date(s): 12/20/21 - 01/19/22 [facility] [place] [address] [place] [address]- Allergies, Adverse Reactions, Alerts Substance Reaction Severity [...] 12:54:00 EST, 10/04/21 12:54:00 EDT, EC Tablet, [id number], Partial fill upon patient request if the [...] Stop 04/02/2311:55:00 EST, 10/04/21 12:55:00 EDT, Tablet, [facility] #[id number], insurance refused to cover 4x/day, 162.7, cm, [...] 10/04/21 12:55:00 EDT, Route to Pharmacy Electronically, [facility] #[id number], 162.7, cm, 08/02/21... Start Date: 10/04/21 Stop [...] Stop 04/02/22 12:55:00 EST, 10/04/21 12:55:00 EDT, [facility] #[id number], correcting to 30mg ONCE a day - [...] Weight Start Date: 11/07/21 Status: Ordered ergocalciferol 94033 iu oral capsule See Instructions, TAKE 1 [...] 7:19:00 EDT, Injection, [facility][id number], 162.7, cm, 08/02/21 11:0... 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
--- OUTSIDE RECORDS SUMMARY | 2023-11-30 09:14 | XMS_ITS | Continuity of Care Document ---
Author Organization [facility] Address [address] [place] [address]- Care Team Providers Care Cyber Systems Engineer Name Role Phone Kwasi Riggins MD, Mary Primary Care Physician Encounter [facility] Date(s): 11/21/21 - 12/21/21 [facility] [address] [place] [address]- Attending Physician: Brielle Oakes Admitting Physician: Brielle Oakes Referring Physician: Brielle Oakes Allergies, Adverse Reactions, Alerts Substance Reaction Severity [...] 05/11/20 Recorded SARS-CoV-2 (COVID-19) mRNA BNT-162b2 vac 1/29/21 Recorded hepatitis B adult vaccine 05/10/15 Given hepatitis B adult vaccine 03/19/15 Given tetanus/diphtheria/pertussis, acel(Tdap) 05/07/12 Recorded Medications acamprosate 333 mg oral delayed [...] 12:54:00 EST, 10/04/21 12:54:00 EDT, EC Tablet, [facility] #[id number], Partial fill upon patient request if the [...] mg, By Mouth, 3 times a day, Last filled- 10/18/21, # 90 tablet, 0 Refills, Maintenance, 11/27/21 16:42:00 EDT, Tablet, [facility], 162.7, cm, 11/21/21 14:52:00 EDT, Height, 92.4, kg, 03/28/21 13:20:00 EST, Dry Weight Start Date: 11/27/21 Status: Ordered clonazePAM 0.5 mg oral tablet 1 tablet = 0.5 mg, By Mouth, 3 times a day, for 30 days, # 90 tablet, 5 Refills, Hard Stop 04/02/2311:55:00 EST, 10/04/21 12:55:00 EDT, Tablet, [facility] #[id number], insurance refused to cover 4x/day, 162.7, cm, 08/02/21 11:03:00 EDT, Height,... Start Date: 10/04/21 Stop Date: 04/02/22 Status: Ordered cloNIDine 0.1 mg oral tablet 0.1 mg, 1, tablet, By Mouth, Daily, As needed for anxiety, # 90 tablet, Refills 0, Tot. Refills 0, Maintenance, 12/13/21 7:20:00 EDT, Route to Pharmacy Electronically, [facility], 162.7, cm, 11/21/21 14:52:00 EDT, Height, 92.4, kg, ... Start Date: 12/13/21 Stop Date: 03/13/22 Status: Ordered cloNIDine 0.1 mg oral tablet 0.1 mg, 1, tablet, By Mouth, Daily, for 90 days, As needed for anxiety, # 90 tablet, Refills 1, Tot. Refills 1, Hard Stop 04/02/22 12:55:00 EST, 10/04/21 12:55:00 EDT, Route to Pharmacy Electronically, [facility] #[id number], 162.7, cm, 08/02/21... Start Date: 10/04/21 Stop Date: 04/02/22 Status: Ordered cloNIDine 0.1 mg oral tablet 0.1 mg, 1, tablet, By Mouth, Daily, for 90 days, As needed for anxiety, # 90 tablet, Refills 0, Tot. Refills 0, Hard Stop 01/07/22 16:00:00 EDT, 10/09/21 16:00:00 EDT, Route to Pharmacy Electronically, [facility], 162.7, cm, 08/02/21 11:03... Start Date: 10/09/21 Stop Date: 01/07/22 Status: Ordered duloxetine 30 mg oral enteric [...] Stop 04/02/22 12:55:00 EST, 10/04/21 12:55:00 EDT, [facility] #[id number], correcting to 30mg ONCE a day - [...] Refills, Soft Stop, 11/07/21 9:25:00 EDT, [facility], 162.7, cm, 11/07/21 8:48:00 EDT, Height, 92.4, kg, 03/28/21 13:20:00 EST, Dry Weight Start Date: 11/07/21 Status: Ordered ergocalciferol 20458 iu oral capsule See Instructions, TAKE 1 [...] 0 Refills, Maintenance, 12/17/21 15:08:00 EDT, [facility], Partial fill upon patient request [...] Date: 12/17/21 Stop Date: 06/15/22 Status: Ordered Vitamin C 1000 mg oral tablet 1 tablet = 1,000 mg, By Mouth, Daily, for 30 days, # 30 tablet, 5 Refills, Hard Stop 01/10/22 18:03:00 EDT, 07/14/21 18:03:00 EDT, [facility], 162.7, cm, 03/28/21 13:20:00 EST, Height, 92.4, kg, 03/28/21 13:20:00 EST, Dry Weight Start Date: 07/14/21 Stop Date: 01/10/22 Status: Ordered Vivitrol 380 mg intramuscular injection, extended release = 380 mg, Intramuscular, Every 28 days, Every 28 days in our office -delivewred by [facility] own pharmacy[facility] [employer], # 1 kit, 11 Refills, Maintenance, 08/23/21 7:19:00 EDT, Injection, [facility] #[id number], 162.7, cm, 08/02/21 11:0... 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, 2012 Confirmed Active Impulse control disorder Confirmed Active Mood disorder Confirmed Active Obese class I Confirmed Active MDD (major depressive disorder), recurrent episode, mild Confirmed Active Restless legs syndrome (RLS) Confirmed Active Vitamin d deficiency Confirmed Active Vital Signs Most recent to oldest [Reference Range]: 1 Height 165.1 cm (05/27/12 1:05 AM) Pulse Rate [55-90 bpm] 124 bpm *H* (05/27/12 1:05 AM) Blood Pressure [90-138/55-84 mm Hg] 144/ 78mm Hg *H* (05/27/12 1:05 AM) Temperature [96.8-100.4 DegF] 97.9 DegF (05/27/12 1:05 AM) Blood pressure sites Arm, left (05/27/12 1:05 AM) Temperature Route Oral (05/27/12 1:05 AM) Social History Social History Type Response Smoking Status Never (less than 100 in lifetime) entered on: 02/28/21 Sex Patient Care team information Personnel Name: Mary Eng MD Address: Address: [address] [place] [address], [place] [address]
--- OUTSIDE RECORDS SUMMARY | 2023-11-30 09:14 | XMS_ITS | Continuity of Care Document ---
Author Organization [facility] Address [address] [place] [address]- Care Team Providers Care Maritime Guard Name Role Phone Kwasi Riggins MD, Mary Primary Care Physician [facility]counter [facility] Date(s): 01/28/22 - 02/27/22 [facility] [address] [place] [address]- [place] Allergies, Adverse Reactions, Alerts Substance Reaction Severity [...] Weight Start Date: 11/07/21 Status: Ordered ergocalciferol 57113 iu oral capsule See Instructions, TAKE 1 [...] 11 Refills, Maintenance, 08/23/21 7:19:00 EDT, Injection, [facility], [facility] #[id number], 162.7, cm, 08/02/21 11:0... 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 Active Impulse [...] Care Team Personnel Name: Viviana Hillman Position: [facility] Onco RN Member Role: Primary Care Nurse Name: Nicole Torrez RN Position: [facility] SN RN Member Role: Primary Care Nurse Name: Irwin Soto CRNA Position: [facility] Associate Professional Member Role: Primary Care Nurse Address: Address: [address] [place] [address] [place] [address]- Name: Cassandra Clement RN Position: [facility] AMB Nurse Member Role: Primary Care Nurse Name: Aide Mar RN Position: [facility] ED RN W/OE and Tasks Member Role: Primary Care Nurse Name: Mary Eng MD Position: [facility] Primary Care Physician Member Role: PCP Address: Address: [address] [place] [address]- Name: Kan Wei Position: [facility] Cardio/Pulm Mgr [place]) Member Role: Primary Care Nurse Name: Jessi Antonio Position: [facility] RN Member Role: Primary Care Nurse Name: Mila Anthony Position: [facility] RN Member Role: Primary Care Nurse Name: Lucian Cline DO Position: [facility] SAFE DEPOSIT ATTENDANT MD Member Role: Lifetime SAFE DEPOSIT ATTENDANT Physician Address: Address: [address] [place] [address] [place] [address]- [place] Name: Guerline Yarbrough RN Position: [facility] RN Member Role: Primary Care Nurse Name: Hanane Callaway RN Position: [facility] Onco RN Member Role: Primary Care Nurse Name: Nila Mustafa RN Position: [facility] ED RN W/OE and Tasks Member Role: Primary Care Nurse Name: Donis Mcclellan MD Position: [facility] Psychiatry MD Member Role: Lifetime Consulting Physician Address: Address: [address] [place] [address]- [place] Care Team Related Persons Name: PHILLIP GOETZ Address: home [address] [place] [address] Name: PHILLIP GOETZ Address: home [address] [place] [address] Name: SADA KRAMER Address: home [address] [place] [address]
--- OUTSIDE RECORDS SUMMARY | 2023-11-30 09:14 | XMS_ITS | Continuity of Care Document ---
Author Organization [facility] [place] Address [address] [place] [address]- Care Team Providers Care Call Center Director Name Role Phone Kwasi Riggins MD, Mary Primary Care Physician Encounter [facility] Date(s): 11/11/19 - 12/11/19 [facility] [address] [address]- [facility] Allergies, Adverse Reactions, Alerts Substance Reaction Severity [...]
--- OUTSIDE RECORDS SUMMARY | 2023-11-30 09:14 | XMS_ITS | Continuity of Care Document ---
Author Organization [facility] Address [address] [place] [address]- Care Team Providers Care Crm Dynamics Developer Name Role Phone Mary Eng MD Primary Care Physician Encounter [facility] [id number] Date(s): 11/08/19 - 03/06/20 [facility] [address] [place] [address]- Discharge Disposition: A-D/C Home Attending Physician: Mary Beth Carlson MD Admitting Physician: Mary Beth Carlson MD Referring Physician: Mary Eng MD Allergies, [...] recent to oldest [Reference Range]: 1 Height 162.7 cm (11/09/19 11:08 AM) Weight 78.6 kg (11/09/19 11:08 AM) Pulse Rate [55-90 bpm] 81 bpm (11/09/19 11:08 AM) Body Mass Index [18.5-24.99] 29.69 *H* (11/09/19 11:08 AM) Blood Pressure [90-138/55-84 mm Hg] 168/ 88mm Hg *H* (11/09/19 11:08 AM) Temperature [96.8-100.4 DegF] 98.2 DegF (11/09/19 11:08 AM) Blood pressure sites Arm, left (11/09/19 11:08 AM) Temperature Route Temporal (11/09/19 11:08 AM) Dry Weight 78.6 kg (11/09/19 11:08 AM) Weight Obtained Via Standing scale (11/09/19 11:08 AM) Dry Weight Obtained Via Standing scale (11/09/19 11:08 AM) Social History Social History Type Response Smoking Status Never (less than 100 in lifetime) entered on: 10/20/19 Sex
--- OUTSIDE RECORDS SUMMARY | 2023-11-30 09:14 | XMS_ITS | Continuity of Care Document ---
Author Organization [facility] Primary [facility] [place] Address [address] [place] [address]- Care Team Providers Care Limb Driver Name Role Phone Mary Eng MD Primary Care Physician Encounter [facility] Date(s): 03/04/22 - 04/05/22 [facility] [place] [address] [place] [address]- Attending Physician: Mary Eng MD Allergies, Adverse Reactions, Alerts Substance Reaction Severity Status Bee Stings severe swelling Active Mold swelling Active NSAIDs History of stomach ulcers 04-JAN-2016 21: 52:31<$> Active Immunizations Given and Recorded Vaccine Date Status Refusal Reason SARS-CoV-2 (COVID-19) mRNA-1273 vaccine 06/22/21 R ecorded influenza virus vaccine, inactivated 04/09/21 Dereje rded influenza virus vaccine, inactivated 11/20/20 Derjee rded influenza virus vaccine, inactivated 12/23/19 Dereje [...] Weight Start Date: 11/07/21 Status: Ordered ergocalciferol 69376 iu oral capsule See Instructions, TAKE 1 [...] in our office -delivewred by patients own pharmacy-[facility], # 1 kit, 11 Refills, Maintenance, 08/23/21 7:19:00 EDT, Injection, [id number], 162.7, cm, 08/02/21 11:0... 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, 2013 Confirmed Active Impulse [...] Care Team Personnel Name: Viviana Hillman Position: [facility] Onco RN Member Role: Primary Care Nurse Name: Nicole Torrez RN Position: [facility] SN RN Member Role: Primary Care Nurse Name: Irwin Soto CRNA Position: [facility] Associate Professional Member Role: Primary Care Nurse Address: Address: [address] [place] [address] [place] [address]- Name: Cassandra Clement RN Position: [facility] AMB Nurse Member Role: Primary Care Nurse Name: Aide Mar RN Position: [facility] ED RN W/OE and Tasks Member Role: Primary Care Nurse Name: Mary Eng MD Position: [facility] Primary Care Physician Member Role: PCP Address: Address: [address] [place] [address]- Name: Kan Wei Position: [facility] Cardio/Pulm Mgr ([facility]) Member Role: Primary Care Nurse Name: Jessi Antonio Position: [facility] RN Member Role: Primary Care Nurse Name: Mila Anthony Position: [facility] RN Member Role: Primary Care Nurse Name: Lucian Cline DO Position: [facility] HEALTH ANALYST MD Member Role: Lifetime HEALTH ANALYST Physician Address: Address: [address] [place], [place] [address]s [facility] [place] [address]- [place] Name: Guerline Yarbrough RN Position: [facility] RN Member Role: Primary Care Nurse Name: Hanane Callaway RN Position: [facility] Onco RN Member Role: Primary Care Nurse Name: Nila Mustafa RN Position: [facility] ED RN W/OE and Tasks Member Role: Primary Care Nurse Name: Donis Mcclellan MD Position: [facility] Psychiatry MD Member Role: Lifetime Consulting Physician Address: Address: [address] [place] [address]- Care Team Related Persons Name: SOFYPHILLIP ANDRADE Address: [address] [place] [address] Name: PHILLIP GOETZ Address: [address] [place] [address] Name: SADA KRAMER Address: home [address] [place] [address]
--- OUTSIDE RECORDS SUMMARY | 2023-11-30 09:14 | XMS_ITS | Continuity of Care Document ---
Author Organization [facility] Address [address] [place] [address]- Care Team Providers Care Grinder Operator Surface Tool Name Role Phone Kwasi Riggins MD, Mary Primary Care Physician Encounter [facility] Date(s): 07/26/23 - 08/25/23 [facility] [address] [place] [address]- [place] Allergies, Adverse Reactions, Alerts Substance Reaction [...] influenza virus vaccine, inactivated 12/24/14 Dereje rded [id number] bivalent booster vax 12/27/21 Recorded SARS-CoV-2 (COVID-19) [...] Weight Start Date: 11/07/21 Status: Ordered ergocalciferol 42938 iu oral capsule See Instructions, TAKE 1 [...] in our office -delivered by patients own pharmacy[facility], # 1 each, 11 Refills, Maintenance, 09/05/22 7:10:00 EDT, Injection, Community, [id number], 165.1, cm, 05/15/22 7:56... 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 Onco RN Member Role: Primary Care Nurse Name: Nicole Torrez RN Position: [facility] SN RN Member Role: Primary Care Nurse Name: Irwin Soto CRNA Position: [facility] Associate Professional Member Role: Primary Care Nurse Address: Address: [address] [place] [address] [address] Name: Guerline Piña RN Position: [facility] RN Member Role: Primary Care Nurse Name: Cassandra Clement RN Position: [facility] AMB Nurse Member Role: Primary Care Nurse Name: Aide Mar RN Position: [facility] ED RN W/OE and Tasks Member Role: Primary Care Nurse Name: Mary Eng MD Position: [facility] Physician - Primary Care Member Role: PCP Address: Address: [address] [place] [address] - [place] Name: Jessi Pittman [place] Position: [facility] Office Staff Member Role: Primary Care Nurse Name: Mila Veronica MA Position: [facility] Office Staff Member Role: Primary Care Nurse Name: Lucian Cline DO Position: [facility] CORN CROP SUPERVISOR MD Member Role: Lifetime CORN CROP SUPERVISOR Physician Address: Address: [address] [place] [address] - [place] Name: Hanane Callaway RN Position: [facility] Onco RN Member Role: Primary Care Nurse Name: Nila Mustafa RN Position: [facility] ED RN W/OE and Tasks Member Role: Primary Care Nurse Name: Donis Mcclellan MD Position: [facility] Physician - Behavioral Health Member Role: Lifetime Consulting Physician Address: Address: [address] [place] [address] - Care Team Related Persons Name: PHILLIP GOETZ Address: home [address], [place] Name: PHILLIP GOETZ Address: home [address], [place] Name: SADA KRAMER Address: home [address] [place] [address]
--- OUTSIDE RECORDS SUMMARY | 2023-11-30 09:14 | XMS_ITS | Continuity of Care Document ---
Author Organization [facility] Address [address] [place] [address]- Care Team Providers Care Airline Stewardess Name Role Phone Mary Eng MD Primary Care Physician Encounter [facility] [id number] Date(s): 12/13/22 - 04/12/23 [facility] [address] [place] [address]- Attending Physician: Wilmar Gunderson MD Admitting Physician: Wilmar Gunderson MD Referring Physician: Mary Eng MD Allergies, [...] influenza virus vaccine, inactivated 12/24/14 Dereje rded [id number] bivalent booster vax 12/27/21 Recorded SARS-CoV-2 (COVID-19) [...] day, # 90 tablet, 5 Refills, Maintenance, 02/13/23 8:22:00 EST, Tablet, [facility], 165.1, cm, 05/15/22 7:56:00 EST, Height, 85, kg, 02/11/22 13:57:00 EST, Dry Weight Start Date: 02/13/23 Stop Date: 08/12/23 Status: Ordered cloNIDine 0.1 mg oral tablet [...] Weight Start Date: 11/07/21 Status: Ordered ergocalciferol 36046 iu oral capsule See Instructions, TAKE 1 CAPSULE BY MOUTH EVERY WEEK, # 4 capsule, Refills 5, Tot. Refills 5, Maintenance, 10/13/22 12:21:00 EDT, Instructions Replace Required Details, Route to Pharmacy Electronically, [facility], Partial fill upon patien... Start Date: 10/13/22 Status: Ordered gabapentin 100 mg oral capsule See Instructions, 1 capsule By Mouth in AM and 2 capsule PO HS, # 270 capsule, Refills 1, Tot. Refills 1, Maintenance, 02/13/23 8:21:00 EST, Instructions Replace Required Details, Route to Pharmacy Electronically, [facility], 165.1, cm, 02... Start Date: 02/13/23 Status: Ordered Mastectomy Bra See Instructions, # [...] in our office -delivered by patients own pharmacy[facility], # 1 each, 11 Refills, Maintenance, 09/05/22 7:10:00 EDT, Injection, Community, [facility] #[id number], 165.1, cm, 05/15/22 7:56... 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 Brooke Aguillon Confirmed Active MDD (major depressive disorder), recurrent episode, mild Confirmed Active Restless legs syndrome (RLS) Confirmed Active Vitamin d deficiency Confirmed Active Social History Social History Type Response Smoking Status Never (less than 100 in lifetime) entered on: 02/28/21 Sex Patient Care team information Care Team Personnel Name: Viviana Hillman Position: [facility] On[facility] RN Member Role: Primary Care Nurse Name: Nicole Torrez RN Position: [facility] SN RN Member Role: Primary Care Nurse Name: Irwin Soto CRNA Position: [facility] Associate Professional Member Role: Primary Care Nurse Address: Address: [address] [facility] [place] [address]- [place] Name: Guerline Piña RN Position: [facility] RN Member Role: Primary Care Nurse Name: Cassandra Clement RN Position: [facility] AMB Nurse Member Role: Primary Care Nurse Name: Aide Mar RN Position: [facility] ED RN W/OE and Tasks Member Role: Primary Care Nurse Name: Mary Eng MD Position: [facility] Physician - Primary Care Member Role: PCP Address: Address: [address] [place] [address]- [place] Name: Jessi [place] Position: [facility] RN Member Role: Primary Care Nurse Name: Mila Anthony Position: [facility] RN Member Role: Primary Care Nurse Name: Lucian Cline DO Position: [facility] DIRECTOR OF OPERATIONS FOR THERAPY MD Member Role: Lifetime DIRECTOR OF OPERATIONS FOR THERAPY Physician Address: Address: [address] [place] [address] - [place] Name: Hanane Callaway RN Position: [facility] Onco RN Member Role: Primary Care Nurse Name: Nila Mustafa RN Position: [facility] ED RN W/OE and Tasks Member Role: Primary Care Nurse Name: Donis Mcclellan MD Position: [facility] Physician - Behavioral Health Member Role: Lifetime Consulting Physician Address: Address: [address] [place] [address]- [place] Care Team Related Persons Name: PHILLIP GOETZ Address: home [address], [place] Name: PHILLIP GOETZ Address: home [address], [place] Name: SADA KRAMER Address: home [address] [place] [address]
--- OUTSIDE RECORDS SUMMARY | 2023-11-30 09:14 | XMS_ITS | Continuity of Care Document ---
Author Organization [facility] [place] Address [address] [place] [address]- Care Team Providers Care Configuration Release Manager Name Role Phone Kwasi Riggins MD, Mary Primary Care Physician Encounter [facility] Date(s): 04/03/20 - 05/03/20 [facility] [place] [address] [place] [address]- Attending Physician: Brielle Oakes Admitting Physician: Brielle [...]
--- OUTSIDE RECORDS SUMMARY | 2023-11-30 09:14 | XMS_ITS | Continuity of Care Document ---
Author Organization [facility] Address [address] [place] [address]- Care Team Providers Care Social Scientist Name Role Phone Kwasi Riggins MD, Mary Primary Care Physician En[facility] Date(s): 03/20/22 - 04/19/22 [facility] [address] [place] [address]- Attending Physician: Brielle Oakes Admitting Physician: Brielle Oakes Referring Physician: Admtr, Ar8 Allergies, Adverse Reactions, [...] Weight Start Date: 11/07/21 Status: Ordered ergocalciferol 36456 iu oral capsule See Instructions, TAKE 1 [...] tablet, 5 Refills, Soft Stop, 06/15/22 16:44:[facility], 162.7, cm, 12/16/21 13:04:00 EDT, Height, 92.4, kg, 03/28/21 13:20:00 EST, Dry Weight Start Date: 06/15/22 Stop Date: 12/12/22 Status: Ordered Vivitrol 380 mg intramuscular injection, extended release = 380 mg, Intramuscular, Every 28 days, Every 28 days in our office -delivewred by patients own pharmacy-[facility], # 1 kit, 11 Refills, Maintenance, 08/23/21 7:19:00 EDT, Injection, Community, [id number], 162.7, cm, 08/02/21 11:0... 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 Active Impulse [...] Personnel Name: Viviana Hillman Position: [facility] Onco RN Member Role: Primary Care Nurse Name: Nicole Torrez RN Position: [facility] SN RN Member Role: Primary Care Nurse Name: Irwin Soto CRNA Position: [facility] Associate Professional Member Role: Primary Care Nurse Address: Address: [address] [place] [address] [place] [address]- [place] Name: Cassandra Clement RN Position: [facility] Nurse Member Role: Primary Care Nurse Name: Aide Mar RN Position: [facility] ED RN W/OE and Tasks Member Role: Primary Care Nurse Name: Mary Eng MD Position: [facility] Primary Care Physician Member Role: PCP Address: Address: [address] [place] [address]- [place] Name: Kan Wei Position: [facility] Cardio/Pulm Mgr ([facility]) Member Role: Primary Care Nurse Name: Jessi Antonio Position: [facility] RN Member Role: Primary Care Nurse Name: Mila Anthony Position: [facility] RN Member Role: Primary Care Nurse Name: Lucian Cline DO Position: [facility] ASSEMBLER UTILITY BUILDINGS MD Member Role: Lifetime ASSEMBLER UTILITY BUILDINGS Physician Address: Address: [address] [place] [address] [place] [address]- [place] Name: Guerline Yarbrough RN Position: [facility] RN Member Role: Primary Care Nurse Name: Hanane Callaway RN Position: [facility] Onco RN Member Role: Primary Care Nurse Name: Nila Mustafa RN Position: [facility] ED RN W/OE and Tasks Member Role: Primary Care Nurse Name: Vy DUKE, Donis Position: [facility] Psychiatry MD Member Role: Lifetime Consulting Physician Address: Address: [address] [place] [address]- Care Team Related Persons Name: PHILLIP GOETZ Address: [address] [place] [address] Name: PHILLIP GOETZ Address: [address] [place] [address] Name: SADA KRAMER Address: home [address] [place] [id number]
--- OUTSIDE RECORDS SUMMARY | 2023-11-30 09:14 | XMS_ITS | Continuity of Care Document ---
Author Organization [facility] [place] Address [address] [place] [address]- Care Team Providers Care Latin American Studies Professor Name Role Phone Mary Eng MD Primary Care Physician Encounter [facility] Date(s): 03/26/22 - 04/25/22 [facility] [place] [address] [place] [address]- Attending Physician: Brielle Oakes Admitting Physician: AdmtrBrielle Referring Physician: Admtr, ArJoe Allergies, Adverse Reactions, Alerts Substance Reaction Severity [...] Give n influenza virus vaccine, inactivated 12/24/14 Derjee rded SARS-CoV-2 (COVID-19) mRNA BNT-162b2 vac 01/02/21 [...] Weight Start Date: 11/07/21 Status: Ordered ergocalciferol 95763 iu oral capsule See Instructions, TAKE 1 [...] 11 Refills, Maintenance, 08/23/21 7:19:00 EDT, Injection, [facility] #[id number], 162.7, cm, 08/02/21 11:0... 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, ER/[place] positive, Her-2/sia negative, 2012 Confirmed Active Impulse control disorder Confirmed Active Mood disorder Confirmed Active Obese class I Confirmed Active MDD (major depressive disorder), recurrent episode, mild Confirmed Active Restless legs syndrome (RLS) Confirmed Active Vitamin d deficiency Confirmed Active Social History Social History Type Response Smoking Status Never (less than 100 in lifetime) entered on: 02/28/21 Sex Note * Event Display: Non Cardiovascular Results Authored Date: * Event Display: Cardiology Office Note, Non- Authored Date: Patient Care team information Care Team Personnel Name: Viviana Hillman Position: [facility] Onco RN Member Role: Primary Care Nurse Name: Nicole Torrez RN Position: [facility] SN RN Member Role: Primary Care Nurse Name: Irwin Soto CRNA Position: [facility] Associate Professional Member Role: Primary Care Nurse Address: Address: [address] [place] [address] [place] [address]- [place] Name: Cassandra Clement RN Position: [facility] AMB Nurse Member Role: Primary Care Nurse Name: Aide Mar RN Position: [facility] ED RN W/OE and Tasks Member Role: Primary Care Nurse Name: Mary Eng MD Position: [facility] Primary Care Physician Member Role: PCP Address: Address: [address] [place] [address]- [place] Name: Kan Wei Position: [facility] Cardio/Pulm Mgr ([facility]) Member Role: Primary Care Nurse Name: Jessi Antonio Position: [facility] RN Member Role: Primary Care Nurse Name: Mila Anthony Position: [facility] RN Member Role: Primary Care Nurse Name: Lucian Cline DO Position: [facility] OCCUP THERAPIST MD Member Role: Lifetime OCCUP THERAPIST Physician Address: Address: [address] [place] [address] [facility] [facility] [place] [address]- [place] Name: Guerline Yarbrough RN Position: [facility] RN Member Role: Primary Care Nurse Name: Hanane Callaway RN Position: [facility] Onco RN Member Role: Primary Care Nurse Name: Nila Mustafa RN Position: [facility] ED RN W/OE and Tasks Member Role: Primary Care Nurse Name: Donis Mcclellan MD Position: [facility] Psychiatry MD Member Role: Lifetime Consulting Physician Address: Address: [address] [place] [address]- Care Team Related Persons Name: PHILLIP GOETZ Address: [address] [place] [address] Name: PHILLIP GOETZ Address: [address] [place], [place] Name: SADA KRAMER Address: home [address] [place] [address]
--- OUTSIDE RECORDS SUMMARY | 2023-11-30 09:14 | XMS_ITS | Continuity of Care Document ---
Author Organization [facility] ter Address [address] [place] [address]- Care Team Providers Care Workplace Rehabilitation Officer Name Role Phone Kwasi Riggins MD, Mary Primary Care Physician [place] [facility] [place]/03/22 - 02/03/[address] [address] Discharge Disposition: A-D/C Home Attending Physician: Wilmar Gunderson MD Admitting Physician: [...] Stop 07/20/22 14:57:00 EDT, 01/21/22 14:57:00 EDT, [facility], correcting to 30mg ONCE a [...] Weight Start Date: 11/07/21 Status: Ordered ergocalciferol 18232 iu oral capsule See Instructions, TAKE 1 [...] in our office -delivewred by patients own pharmacy-[facility], # 1 kit, 11 Refills, Maintenance, 08/23/21 7:19:00 EDT, Injection, Community, [facility] #[id number], 162.7, cm, 08/02/21 11:0... 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, ER/ND positive, Her-2/sia negative, 2012 Confirmed Active Impulse control disorder Confirmed Active Mood disorder Confirmed Active Obese class I Confirmed Active MDD (major depressive disorder), recurrent episode, mild Confirmed Active Restless legs syndrome (RLS) Confirmed Active Vitamin d deficiency Confirmed Active Vital Signs Most recent to oldest [Reference Range]: 1 2 3 Height 165.1 cm (02/03/22 2:08 PM) Oxygen Saturation [94-100 %] 100 % (02/03/22 5:38 PM) 100 % (02/03/22 5:25 PM) 98 % (02/03/22 5:20 PM) Pulse Rate [55-90 bpm] 79 bpm (02/03/22 2:08 PM) Blood Pressure [90-138/55-84 mm Hg] 140/90mm Hg *H* (02/03/22 5:38 PM) 140/95mm Hg *H* (02/03/22 5:25 PM) 140/90mm Hg *H* (02/03/22 5:20 PM) Respiratory Rate [16-30 br/min] 18 br/min (02/03/22 5:38 PM) 18 br/min (02/03/22 5:25 PM) 18 br/min (02/03/22 5:20 PM) Temperature [96.8-100.4 DegF] 98.8 DegF (02/03/22 2:08 PM) Mode of Delivery (Oxygen) Room air (02/03/22 5:25 PM) Room air (02/03/22 5:20 PM) Room air (02/03/22 5:15 PM) Blood pressure sites Arm, left (02/03/22 5:38 PM) Arm, left (02/03/22 5:25 PM) Arm, left (02/03/22 5:20 PM) Temperature Route Temporal (02/03/22 2:08 PM) Dry Weight 86.2 kg (02/03/22 2:08 PM) Dry Weight Obtained Via Patient/family s tated (02/03/22 2:08 PM) Social History Social History Type Response Smoking Status Never (less than 100 in lifetime) entered on: 02/28/21 Sex Note * Rebecca Boucher RN: PERFORM Event Display: Discharge/Transfer Note Hospital Authored Date: [id number] Nursing Discharge Note Entered On: 02/03/2022 17:36 EST Performed On: 02/03/2022 17:35 EST by Rebecca Boucher RN Nursing Discharge Note 2 Discharge Time : 02/03/2022 17:55 EST Rebecca Boucher RN - 02/03/2022 17:54 EST Discharge Level of Care at Discharge : Home/Usp/Foster Care Patient Left Unit Via : Wheelchair Patient Accompanied Off Unit with : Responsible adult DC Instructions Provided & Signed by Pt : Yes Patient Understands D/C Instructions : Yes Patient Instructions Discharge Signed : Yes Did Pt have Specialty Bed or Wound Vac : No Rebecca Boucher RN - 02/03/2022 17:35 EST * Rebecca Boucher RN: PERFORM Event Display: Patient Education/Instruction Authored Date: [id number] Inpatient Adult Discharge Instructions [place] [id number] Name: JOHN KRAMER : 1975 Visit: 02/03/2022 12:57:00 Current Date: 02/03/2022 17:36 Account: [id number] Inpatient Adult Discharge Instructions We would like to thank you for allowing us to assist you with your healthcare needs. The following includes patient education materials and information regarding your injury/illness. Our entire staffstrives to provide an excellent experience for our patients and their families. PLEASE ENSURE YOU FOLLOW-UP PER THE INSTRUCTIONS BELOW! ?? YOUR OPINION IS IMPORTANT TO US! Please complete the survey you may receive by mail or email. Your feedback will be used to make improvements to the healthcare experiences of our patients and their families. Surveys are administered by [employer] ?? If further treatment with your primary care physician or another doctor is recommended, it is important for you to keep the appointment. Call your primary care physician or return to the Emergency Department immediately if your condition worsens, fails to improve, or new symptoms develop. If you need to find a doctor, you can call [facility] for a referral at [phone] or toll free at [phone]) or log in to [email or web address] ?? You can view and manage your care through the patient portal or by using a health care aby of your choosing. [employer] is a website that allows you to securely view your medical information including your hospital discharge summary, office visit summaries, medications and follow-up visits. You can also request appointments, renew medications, and request access to your medical information using a health care aby of your choosing, or just ask a question. You can enroll at [email or web address] or register during your next office visit. You have been discharged from [facility], Patient Care Unit: ENDO. If you have any questions regarding these instructions after you leave, please call us and we will be happy to assist you. [facility] Your Care Team Attending Physician Neptali DUKE, Wilmar Consulting Providers Mitchell Perrin MD, Rashad Gonzalez Reason for Admission ERIK MUTATION,SCREENING COLON Tests Performed Below is a partial list of the tests performed during your hospitalization. You may have had other tests and procedures not included in this list. Please discuss all test results with your provider. Primary Care Provider Mary Eng MD Advance Directive Health Care Proxy on File Yes - Health Care Proxy No qualifying data available. Discharge Vitals Temperature: 98.8 DegF Height: 165.1 cm Pulse Rate: 79 bpm ?? Respiratory Rate: 18 br/min ?? Systolic Blood Pressure:??140 mm Hg??High ?? Diastolic Blood Pressure:??95 mm Hg??High ?? Oxygen Saturation: 100 % ?? Studies Pending All tests and labs ordered during this hospital stay have been completed unless listed below. Please discuss all pending results with your provider listed above in these instructions. ?? No incomplete studies found What to do next Instructions From Your Doctor Discharge Orders Scheduled Follow-Up Appointments Thursday 2:00 PM EST ?? With: Chivo FONG, Katherine Camargo Where: [facility] Plastic Surgery [address] [place] [address]- 2021 2:00 PM EST ?? With: Wilmar Gunderson MD Where: [facility] Gastroenterology [address] [place] [address]- Thursday 1:00 PM EST ?? With: Dagoberto FONG, Aileen Gonzalez Where: [facility] [address] [address] [place] [address]- You Need to Schedule the Following Appointments Follow Up with??Follow up with your primary care doctor as needed. When?? Follow Up with??Mary Riggins When??In 0 days Discharge Medications VASILEJOHN LOPEZ :1975 Visit Date:02/03/2022 Medications: Please continue your medications until treatment is completed or stopped by your provider. Medications not listed below should be discontinued. Discuss any questions related to medications with your provider. What How Much When Why Instructions Next Dose Unchanged Ascorbic Acid (Vitamin C 1000 mg oral tablet) 1 tab(s) Oral Daily Duration: 30 Days Unchanged Calcium And Vitamin D Combination (Caltrate 600 with D) 1 tab Oral Daily Unchanged Clonazepam (clonazePAM 0.5 mg oral tablet) 1 tab(s) Oral 3 times a day Duration: 30 Days Unchanged Clonidine (cloNIDine 0.1 mg oral tablet) 1 tab(s) Oral Daily Duration: 90 Days As needed for anxiety ?? Unchanged Cyanocobalamin (B-12 500 mcg sublingual tablet) See instructions PLACE 1 TABLET UNDER TONGUE AND LET DISSOLVE ONCE DAILY. ?? Unchanged Duloxetine (duloxetine 30 mg oral enteric coated capsule) 1 capsule Oral Daily Duration: 90 Days Unchanged Durable Medical Equipment (Mastectomy Bra) See instructions History of breast cancer Bilateral mastectomy. ??Asymmetry due to surgery Diagnosis: C50.911 ?? Unchanged Durable Medical Equipment (Mastectomy Prosthesis) See instructions History of breast cancer Bilateral mastectomy. ??Asymmetry due to surgery Diagnosis: C50.911 ?? Unchanged EPINEPHrine (EPINEPHrine 0.3 mg injectable solution) 0.3 Milligram Intramuscular Once Unchanged Ergocalciferol (ergocalciferol 05627 iu oral capsule) See instructions TAKE 1 CAPSULE BY MOUTH EVERY WEEK ?? Unchanged Gabapentin (gabapentin 100 mg oral capsule) See instructions Anemia 1 capsule By Mouth in AM and 2 capsule PO HS ?? Unchanged Lactobacillus Acidophilus (Acidophilus oral tablet) 2 tab(s) Oral Daily Unchanged Multivitamin Oral Daily Unchanged Naltrexone (Vivitrol 380 mg intramuscular injection, extended release) 380 Milligram Intramuscular Every 28 days Every 28 days in our office -delivewred by patients own pharmacy-[facility] ?? Unchanged Omeprazole (omeprazole 20 mg oral delayed release tablet) 20 Milligram Oral Twice a day Duration: 90 Days Unchanged Omeprazole (omeprazole 20 mg oral delayed release tablet) 20 Milligram Oral Twice a day Duration: 90 Days Unchanged Oxybutynin (oxybutynin 5 mg oral tablet) See instructions 0.5 tablet By Mouth 2 times a day ?? Test Results Below is a partial list of the most recent Laboratory test results done prior to this discharge. You may have had other tests and procedures not included in this list. Please discuss all test resultswith your provider. Allergies (NKA means No Known Allergies) Bee Stings??(severe swelling) Mold??(swelling) NSAIDs??(History of stomach ulcers -DEC-2015 21:52:31<$>) Problems Active Problems??(16) Alcohol dependence in remission?? Anemia?? Anxiety disorder?? ERIK gene mutation (+)?? Edema of leg?? Esophageal reflux?? MINERVA (generalized anxiety disorder)?? History of breast cancer, Right, IDC, grade II, T2 N0, ER/ND positive, Her-2/sia negative, 2012?? History of Nimo-en-Y gastric bypass?? Impulse control disorder?? MDD (major depressive disorder), recurrent episode, mild?? Mood disorder?? Obese class I?? PMDD?? Restless legs syndrome (RLS)?? Vitamin d deficiency?? Education Materials Below is the list of Educational Leaflet Providered with your Discharge Instructions. Valuables and Belongings I fully understand and agree that [facility] accepts no responsibility for all my personal property including clothing, toilet articles, radios, jewelry, dentures, hearing aids, rings, money, or any other property that is in my possession or is brought to me after admission. I understand certain valuables may be placed in a hospital safe for a short period of time. I understand that the hospital is not liable for loss or damage due to accident, fire, or other natural occurrence while said property is in the safe. I accept full responsibility for any personal property that I keep with me, and will not hold the hospital responsible in case of loss or disappearance. I acknowledge that i have been encouraged to send valuables and belongings home. ?? Review of Valuable and Belonging List: With patient Date for Pt to Sign Valuables/Belongings: 02/03/22 14:08:00 ?? Valuables & Belongings ?? Clothes Electronic devices Jewelry Monetary Items Personal devices Miscellaneous Medications (Valuables) Valuables at Bedside Pants, Shirt, Shoes, Undergarments ? Dentures, partial plate ? Valuables Sent Home ? Valuables Sent to Security ? Other Discharge Information ? Case Management Discharge Plan?? Discharge Plan?? Discharge Level of Care at Discharge: Home/Usp/Foster Care ?? Pulmonary Rehab Status?? Pulmonary Rehab Discharge Status?? Respiratory Rate: 18 br/min ? Common Emergency Awareness Tips IS IT A STROKE? Act FAST and Check for these signs: FACE Does the face look uneven? ARM Does one arm drift down? SPEECH Does their speech sound strange? TIME Call at any sign of stroke ?? Heart Attack Signs Chest discomfort: Most heart attacks involve discomfort in the center of the chest and lasts more than a few minutes, or goes away and comes back. It can feel like uncomfortable pressure, squeezing, fullness or pain. Discomfort in upper body: Symptoms can include pain or discomfort in one or both arms, back, neck, jaw or stomach. Shortness of breath: With or without discomfort. Other signs: Breaking out in a cold sweat, nausea, or lightheaded. Remember, MINUTES DO MATTER. If you experience any of these heart attack warning signs, call to get immediate medical attention! ?? Smoking can increase your chances of developing chronic health problems and can cause harmful effects to other family members in your house. If you smoke, you are strongly encouraged to quit. Please call [facility] at [phone] or [phone]-e[employer] ([phone]) or log in to [email or web address] for referrals to smoking cessation programs. ?? The National Suicide Prevention Hotline is available 13/10 if you or someone you know needs to find a reason to keep living. By calling 7-616-673-AQUA PURE (7195) you'll be connected to a skilled, trained counselor at a crisis center in your area. INPATIENT DISCHARGE INSTRUCTIONS SIGNATURE PAGE WILLIAMSJOHN Location:[facility] Registration Date and Time:02/03/2022 12:57 EST Primary Care Physician: Kwasi Riggins MD, Mary, I JOHN KRAMER, have received the above patient education materials/instructions and have verbalized understanding. If ambulance or transport services are being used I further acknowledge being given a choice of service. ?? If you need to contact me, please call me at this number: . Patient/Elevator Constructor Helper Name: Patient/Elevator Constructor Helper Signature: Relationship to Patient: Witness Name/Signature: Date: * Rebecca Boucher RN: PERFORM, SIGN, VERIFY Event Display: Patient Education Handout Authored Date: * Rebecca Boucher RN: PERFORM Event Display: Patient Education Leaflets Authored Date: Surgery Medical Daystay Surgical Overnight Discharge Instructions ?? 295 Medical Daystay/Surgical Overnight Discharge Instructions ? Since your coordination and judgment may be altered by medication and/or anesthesia, a responsible adult must drive you home from the hospital. ? If you have received medication for pain or sedation while under our care, you should not drive, operate machinery, drink alcohol, or sign any legal documents for 24 hours.?? You should have someone with you at home tonight. ? Remain at home the day of discharge.?? You may be up and about unless otherwise instructed by your physician. ? You may resume your daily prescription medication schedule.?? Any depressant medication should be avoided for 24 hours unless otherwise instructed by your surgeon or anesthesiologist. ? Call your physician for a follow-up appointment.? If you experience unusual or severe pain not relied by your pain medication, excessive bleedingor drainage, persistent nausea and vomiting, excessive swelling or redness, foul odor from incisionsite or fever over 100.6F, you need to call your physician. ? A follow-up phone call by a nurse will be made the day after your procedure.?? If you have stayed with us over night, you will not be receiving a follow-up phone call. ? Nausea and vomiting are a common side effect of prescription pain medication.?? We recommend that pills are not taken on an empty stomach.?? While taking any prescription pain medication you should not drive or drink alcohol. ? Patient Care team information Care Team Personnel Name: Viviana Hillman Position: [facility] Onco RN Member Role: Primary Care Nurse Name: Nicole Torrez RN Position: [facility] SN RN Member Role: Primary Care Nurse Name: Irwin Soto CRNA Position: [facility] Associate Professional Member Role: Primary Care Nurse Address: Address: [address] [place] [address] [place] [address]- Name: Cassandra Clement RN Position: [facility] AMB Nurse Member Role: Primary Care Nurse Name: Aide Mar RN Position: [facility] ED RN W/OE and Tasks Member Role: Primary Care Nurse Name: Mary Eng MD Position: [facility] Primary Care Physician Member Role: PCP Address: Address: [address] [place] [address]- [place] Name: Kan Wei Position: [facility] [place] [place] Member Role: Primary Care Nurse Name: Jessi Antonio Position: [facility] RN Member Role: Primary Care Nurse Name: Mila Anthony Position: [facility] RN Member Role: Primary Care Nurse Name: Lucian Cline DO Position: [facility] SIDE SAWYER MD Member Role: Lifetime SIDE SAWYER Physician Address: Address: [address] [place] [address] [place] [address]- [place] Name: Guerline Yarbrough RN Position: [facility] RN Member Role: Primary Care Nurse Name: Hanane Callaway RN Position: [facility] Onco RN Member Role: Primary Care Nurse Name: Nila Mustafa RN Position: [facility] ED RN W/OE and Tasks Member Role: Primary Care Nurse Name: Donis Mcclellan MD Position: [facility] Psychiatry MD Member Role: Lifetime Consulting Physician Address: Address: [address] [place] [address]- Care Team Related Persons Name: PHILLIP GOETZ Address: home [address] [place] [address] Name: PHILLIP GOETZ Address: home [address] [place] [address] Name: SADA KRAMER Address: home [address] [place] [address]
--- OUTSIDE RECORDS SUMMARY | 2023-11-30 09:14 | XMS_ITS | Continuity of Care Document ---
Author Organization [facility] Address [address] [place] [address]- Care Team Providers Care Manager Of Operations Name Role Phone Kwasi Riggins MD, Mary Primary Care Physician Encounter [facility] Date(s): 12/03/21 - 01/02/22 [facility] [place] [address] [place] [address]- Allergies, Adverse Reactions, Alerts Substance Reaction Severity [...] 12:54:00 EST, 10/04/21 12:54:00 EDT, EC Tablet, [id number], Partial fill upon patient request if the [...] Refills, Maintenance, 11/27/21 16:42:00 EDT, Tablet, [facility], 162.7, cm, 11/21/21 14:52:00 EDT, Height, 92.4, kg, 03/28/21 13:20:00 EST, Dry Weight Start Date: 11/27/21 Status: Ordered clonazePAM 0.5 mg oral tablet 1 tablet = 0.5 mg, By Mouth, 3 times a day, for 30 days, # 90 tablet, 5 Refills, Hard Stop 04/02/2311:55:00 EST, 10/04/21 12:55:00 EDT, Tablet, Must [facility][id number], insurance refused to cover 4x/day, 162.7, cm, 08/02/21 11:03:00 EDT, Height,... Start Date: 10/04/21 Stop Date: 04/02/22 Status: Ordered cloNIDine 0.1 mg oral tablet 0.1 mg, 1, tablet, By Mouth, Daily, As needed for anxiety, # 90 tablet, Refills 0, Tot. Refills 0, Maintenance, 12/13/21 7:20:00 EDT, Route to Pharmacy Electronically, [facility], 162.7, cm, 11/21/21 14:52:00 EDT, Height, 92.4, kg, ... Start Date: 12/13/21 Stop Date: 03/13/22 Status: Ordered cloNIDine 0.1 mg oral tablet 0.1 mg, 1, tablet, By Mouth, Daily, for 90 days, As needed for anxiety, # 90 tablet, Refills 1, Tot. Refills 1, Hard Stop 04/02/22 12:55:00 EST, 10/04/21 12:55:00 EDT, Route to Pharmacy Electronically, [facility] #[id number], 162.7, cm, 08/02/21... Start Date: 10/04/21 Stop [...] Stop 04/02/22 12:55:00 EST, 10/04/21 12:55:00 EDT, [facility][id number], correcting to 30mg ONCE a day - [...] Weight Start Date: 11/07/21 Status: Ordered ergocalciferol 65557 iu oral capsule See Instructions, TAKE 1 [...] in our office -delivewred by patients own pharmacy-[facility], # 1 kit, 11 Refills, Maintenance, 08/23/21 7:19:00 EDT, Injection, Community, [facility][id number], 162.7, cm, 08/02/21 11:0... Start Date: 08/23/21 [...] Personnel Name: Mary Eng MD Address: Address: [address] [place] [id number]
--- OUTSIDE RECORDS SUMMARY | 2023-11-30 09:14 | XMS_ITS | Continuity of Care Document ---
Author Organization [facility] [place] Address [address] [place] [address]- Care Team Providers Care Fiberglass Finisher Name Role Phone Mary Eng MD Primary Care Physician Encounter [facility] Date(s): 03/26/22 - 04/25/22 [facility] [place] [address] [place] [address]- Attending Physician: Guerline Vasquez NP Referring Physician: Mary Eng MD Allergies, Adverse [...] Weight Start Date: 11/07/21 Status: Ordered ergocalciferol 32304 iu oral capsule See Instructions, TAKE 1 [...] 7:19:00 EDT, Injection, [facility], [facility][id number], 162.7, cm, 08/02/21 11:0... 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, 2013 Confirmed Active Impulse [...] Member Role: Primary Care Nurse Address: Address: [address] [place] [address] [place] [address]- Name: Cassandra Clement RN Position: [facility] AMB Nurse Member Role: Primary Care Nurse Name: Aide Mar RN Position: [facility] ED RN W/OE and Tasks Member Role: Primary Care Nurse Name: Mary Eng MD Position: [facility] Primary Care Physician Member Role: PCP Address: Address: [address] [place] [id number]- Name: Kan Wei Position: [facility] [place] [place] Member Role: Primary Care Nurse Name: Jessi Antonio Position: [facility] RN Member Role: Primary Care Nurse Name: Mila Anthony Position: [facility] RN Member Role: Primary Care Nurse Name: Lucian Cline DO Position: [facility] SHEETMETAL TRADES WORKER MD Member Role: Lifetime SHEETMETAL TRADES WORKER Physician Address: Address: [address] [place] [address] [facility] Rn Clinician [place] [address]- Name: Guerline Yarbrough RN [facility] [...] Member Role: Lifetime Consulting Physician Address: Address: [address] [place] [address]- Care Team Related Persons Name: PHILLIP GOETZ Address: home [address] [place] [address] Name: PHILLIP GOETZ Address: home [address] [place] [address] Name: SADA KRAMER Address: home [address] [place] [address]
--- OUTSIDE RECORDS SUMMARY | 2023-11-30 09:14 | XMS_ITS | Continuity of Care Document ---
Author Organization [facility] [place] Address [address] [place] [address]- Care Team Providers Care Paper Feeder Name Role Phone Kwasi Riggins MD, Mary Primary Care Physician Encounter [facility] Date(s): 04/24/23 - 05/24/23 [facility] [place] [address] [place] [address]- Allergies, Adverse Reactions, Alerts Substance Reaction Severity [...] influenza virus vaccine, inactivated 12/24/14 Dereje rded [id number] bivalent booster vax 12/27/21 Recorded SARS-CoV-2 (COVID-19) [...] Weight Start Date: 11/07/21 Status: Ordered ergocalciferol 97414 iu oral capsule See Instructions, TAKE 1 [...] in our office -delivered by patients own pharmacy-[facility] [employer], # 1 each, 11 Refills, Maintenance, 09/05/22 7:10:00 EDT, Injection, [facility], [id number], 165.1, cm, 05/15/22 7:56... 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 Helper Brooke Aguillon Confirmed Active MDD (major depressive disorder), recurrent episode, mild Confirmed Active Restless legs syndrome (RLS) Confirmed Active Vaginal bleeding Confirmed Active Vitamin d deficiency Confirmed Active Social History Social History Type Response Smoking Status Never (less than 100 in lifetime) entered on: 02/28/21 Sex Patient Care team information Care Team Personnel Name: Rafy Viviana Position: [facility] Onco RN Member Role: Primary Care Nurse Name: Nicole Torrez RN Position: [facility] SN RN Member Role: Primary Care Nurse Name: Irwin Soto CRNA Position: [facility] Associate Professional Member Role: Primary Care Nurse Address: Address: [address] [place] [address] [place] [address]- [place] Name: Guerline Piña RN Position: [facility] RN Member Role: Primary Care Nurse Name: Cassandra Clement RN Position: [facility] AMB Nurse Member Role: Primary Care Nurse Name: Aide Mar RN Position: [facility] ED RN W/OE and Tasks Member Role: Primary Care Nurse Name: Mary Eng MD Position: [facility] Physician - Primary Care Member Role: PCP Address: Address: [address] [place] [address]- Name: Jessi Pittman [place] Position: [facility] RN Member Role: Primary Care Nurse Name: Mila Anthony Position: [facility] RN Member Role: Primary Care Nurse Name: Lucian Cline DO Position: [facility] MACHINE PRESERVATIVE FILLER MD Member Role: Lifetime MACHINE PRESERVATIVE FILLER Physician Address: Address: [address] [place] [address]- Name: Hanane Callaway RN Position: [facility] Onco RN Member Role: Primary Care Nurse Name: Nila Mustafa RN Position: [facility] ED RN W/OE and Tasks Member Role: Primary Care Nurse Name: Donis Mcclellan MD Position: [facility] Physician - Behavioral Health Member Role: Lifetime Consulting Physician Address: Address: [address] [place] [address]- [place] Care Team Related Persons Name: PHILLIP GOETZ Address: home [address], [place] Name: PHILLIP GOETZ Address: home [address], [place] Name: SADA KRAMER Address: home [address] [place] [address]
--- OUTSIDE RECORDS SUMMARY | 2023-11-30 09:14 | XMS_ITS | Continuity of Care Document ---
Author Organization [facility] Address [address] [place] [address]- Care Team Providers Care Etiology Teacher Name Role Phone Kwasi Riggins MD, Mary Primary Care Physician Encounter [facility] [place] [place] Date(s): 03/13/23 - 04/12/23 [facility] [address] [place] [address]- Attending Physician: Brielle Oakes Admitting Physician: Admtr, Brielle Referring Physician: Admtr, Ar8 Allergies, Adverse Reactions, [...] influenza virus vaccine, inactivated 12/24/14 Dereje rded [id number] bivalent booster vax 12/27/21 Recorded SARS-CoV-2 (COVID-19) [...] Weight Start Date: 11/07/21 Status: Ordered ergocalciferol 01979 iu oral capsule See Instructions, TAKE 1 [...] in our office -delivered by patients own pharmacy-[facility], # 1 each, 11 Refills, Maintenance, 09/05/22 7:10:00 EDT, Injection, Community, [facility] #[id number], 165.1, cm, 05/15/22 7:56... 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 Aguillon Confirmed Active MDD (major depressive disorder), recurrent episode, mild Confirmed Active Restless legs syndrome (RLS) Confirmed Active Vitamin d deficiency Confirmed Active Social History Social History Type Response Smoking Status Never (less than 100 in lifetime) entered on: 02/28/21 Sex Patient Care team information Care Team Personnel Name: Viviana Hillman Position: [facility] Onco RN Member Role: Primary Care Nurse Name: Nicole Torrez RN Position: [facility] SN RN Member Role: Primary Care Nurse Name: Irwin Soto CRNA Position: [facility] Associate Professional Member Role: Primary Care Nurse Address: Address: [address] [facility] [place] [address]- [place] Name: Guerline Piña RN Position: [facility] RN Member Role: Primary Care Nurse Name: Cassandra Clement RN Position: [facility] AMB Nurse Member Role: Primary Care Nurse Name: Aide Mar RN Position: [facility] ED RN W/OE and Tasks Member Role: Primary Care Nurse Name: Mary Eng MD Position: [facility] Physician - Primary Care Member Role: PCP Address: Address: [address] [place] [address]- [place] Name: Jessi Pittman [place] Position: [facility] RN Member Role: Primary Care Nurse Name: Mila Anthony Position: [facility] RN Member Role: Primary Care Nurse Name: Lucian Cline DO Position: [facility] DIRECT MAIL MARKETER MD Member Role: Lifetime DIRECT MAIL MARKETER Physician Address: Address: [address] [place] [address]- [place] Name: Hanane Callaway RN Position: [facility] Onco RN Member Role: Primary Care Nurse Name: Nila Mustafa RN Position: [facility] ED RN W/OE and Tasks Member Role: Primary Care Nurse Name: Donis Mcclellan MD Position: [facility] Physician - Behavioral Health Member Role: Lifetime Consulting Physician Address: Address: [address] [place] [address]- [place] Care Team Related Persons Name: PHILLIP GOETZ Address: home [address], [place] Name: PHILLIP GOETZ Address: [address], [place] Name: SADA KRAMER Address: [address] [place] [address]
--- OUTSIDE RECORDS SUMMARY | 2023-11-30 09:14 | XMS_ITS | Continuity of Care Document ---
Author Organization [facility] Address [address] [place] [address]- Care Team Providers Care Instructional Technology Teacher Name Role Phone Kwasi Riggins MD, Mary Primary Care Physician Encounter [facility] Date(s): 05/19/22 - 06/18/22 [facility] [place] [address] [place] [address]- Attending Physician: Brielle Oakes Admitting Physician: AdmBrielle be Referring Physician: AdmtrBrielle Allergies, Adverse Reactions, Alerts [...] influenza virus vaccine, inactivated 12/24/14 Dereje rded [id number] bivalent booster vax 12/27/21 Recorded SARS-CoV-2 (COVID-19) [...] Weight Start Date: 11/07/21 Status: Ordered ergocalciferol 58012 iu oral capsule See Instructions, TAKE 1 [...] office -delivewred by patients own pharmacy-[facility], # 1 kit, 11 Refills, Maintenance, 08/23/21 7:19:00 EDT, Injection, [facility], [facility] #[id number], 162.7, cm, 08/02/21 11:0... Start Date: 08/23/21 [...] Care Team Personnel Name: Viviana Hillman Position: [facility] Onco RN Member Role: Primary Care Nurse Name: Nicole Torrez RN Position: [facility] SN RN Member Role: Primary Care Nurse Name: Irwin Soto CRNA Position: [facility] Associate Professional Member Role: Primary Care Nurse Address: Address: [address] [place] [address] [place] [address]- [place] Name: Cassandra Clement RN Position: [facility] AMB Nurse Member Role: Primary Care Nurse Name: Aide Mar RN Position: [facility] ED RN W/OE and Tasks Member Role: Primary Care Nurse Name: Mary Eng MD Position: [facility] Primary Care Physician Member Role: PCP Address: Address: [address] [place] [address]- [place] Name: Kan Wei Position: [facility] Cardio[place]Pulm [place] [place] Member Role: Primary Care Nurse Name: Jessi Antonio Position: [facility] RN Member Role: Primary Care Nurse Name: Mila Anthony Position: [facility] RN Member Role: Primary Care Nurse Name: Lucian Cline DO Position: [facility] RADIO BOARD OPERATOR MD Member Role: Lifetime RADIO BOARD OPERATOR Physician Address: Address: [address] [place] [address] [facility] [place] [address]- Name: Guerline Yarbrough RN Position: [facility] RN Member Role: Primary Care Nurse Name: Hanane Callaway RN Position: [facility] Onco RN Member Role: Primary Care Nurse Name: Nila Mustafa RN Position: [facility] ED RN W/OE and Tasks Member Role: Primary Care Nurse Name: Donis Mcclellan MD Position: [facility] Psychiatry MD Member Role: Lifetime Consulting Physician Address: Address: [address] [place] [address]- Care Team Related Persons Name: PHILLIP GOETZ Address: [address] [place] [address] Name: PHILLIP GOETZ Address: [address] [place] [address] Name: SADA KRAMER Address: home [address] [place] [address]
--- OUTSIDE RECORDS SUMMARY | 2023-11-30 09:14 | XMS_ITS | Continuity of Care Document ---
Author Organization [facility] Address [address] [place] [address]- Care Team Providers Care Application Assistant Name Role Phone Kwasi Riggins MD, Mary Primary Care Physician [place] [facility] [place](s): 02/07/21 - 12/04/21 [facility] [address] [place] [address]- Discharge Disposition: A-D/C Home Attending Physician: Mary Beth Carlson MD Admitting Physician: Mary Beth Carlson MD Referring Physician: Karri MANUFACTURING ENGINEERING MANAGER, Ale Patel Allergies, Adverse Reactions, Alerts Substance Reaction Severity Status Bee Stings severe swelling Active NSAIDs History of stomach ulcers -DEC-2015 21: 52:31<$> Active Mold swelling Active Immunizations [...] 12:54:00 EST, 10/04/21 12:54:00 EDT, EC Tablet, [id number], Partial fill upon patient request if the prescription is for a schedule I... Start Date: 10/04/21 Stop Date: 02/01/22 Status: Ordered acamprosate 333 mg oral delayed release tablet 2 tablet = 666 mg, By Mouth, 3 times a day, sent to wrong pharmacy, # 180 tablet, 3 Refills, Maintenance, 10/09/21 16:00:00 EDT, EC Tablet, [facility], Partial fill upon patient request if the prescription is for a schedule II opioid drug.... Start Date: 10/09/21 Stop Date: 02/06/22 Status: [...] 0 Refills, Maintenance, 11/27/21 16:42:00 EDT, Tablet, [facility], 162.7, cm, 11/21/21 14:52:00 EDT, Height, 92.4, kg, 03/28/21 13:20:00 EST, Dry Weight Start Date: 11/27/21 Status: Ordered clonazePAM 0.5 mg oral tablet 1 tablet = 0.5 mg, By Mouth, 3 times a day, for 30 days, # 90 tablet, 5 Refills, Hard Stop 04/02/2311:55:00 EST, 10/04/21 12:55:00 EDT, Tablet, [email or web address][id number], insurance refused to cover 4x/day, 162.7, cm, 08/02/21 11:03:00 EDT, Height,... Start Date: 10/04/21 Stop Date: 04/02/22 Status: Ordered cloNIDine 0.1 mg oral tablet 0.1 mg, 1, tablet, By Mouth, Daily, for 90 days, As needed for anxiety, # 90 tablet, Refills 1, Tot. Refills 1, Hard Stop 04/02/22 12:55:00 EST, 10/04/21 12:55:00 EDT, Route to Pharmacy Electronically, [facility] #[id number], 162.7, cm, 08/02/21... Start Date: 10/04/21 Stop Date: 04/02/22 Status: Ordered cloNIDine 0.1 mg oral tablet 0.1 mg, 1, tablet, By Mouth, Daily, As needed for anxiety, # 90 tablet, Refills 0, Tot. Refills 0, Maintenance, 10/09/21 16:00:00 EDT, Route to Pharmacy Electronically, [facility], 162.7, cm, 08/02/21 11:03:00 EDT, Height, 92.4, kg, ... Start Date: 10/09/21 Stop Date: 01/07/22 Status: Ordered duloxetine 30 mg oral enteric coated capsule 1 capsule = 30 mg, By Mouth, Daily, for 90 days, # 90 capsule, 1 Refills, Hard Stop 04/02/22 12:55:00 EST, 10/04/21 12:55:00 EDT, [facility] #[id number], correcting to 30mg ONCE a day - [...] Weight Start Date: 11/07/21 Status: Ordered ergocalciferol 73448 iu oral capsule See Instructions, TAKE 1 [...] capsule, Refills 1, Tot. Refills 1, Maintenance, 10/09/21 16:00:00 EDT, Instructions Replace Required Details, Route to Pharmacy Electronically, [facility], 162.7, cm, 0... Start Date: 10/09/21 Status: Ordered Mastectomy Bra See Instructions, # [...] # 30 tablet, 5 Refills, Soft Stop, 07/14/21 18:03:00 EDT, [facility], 162.7, [...] 7:19:00 EDT, Injection, [facility], [facility][id number], 162.7, cm, 08/02/21 11:0... 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 History of breast cancer, Ri ght, IDC, grade II, T2 N0, ER/MT positive, Her-2/sia negative, 2012(Confirmed) Active Impulse control disorder(Confirmed) Active Mood disorder(Confirmed) Active Obese class I(Confirmed) Active MDD (major depressive disord er), recurrent episode, mild(Confirmed) Active Restless legs syndrome (RLS)(Confirmed) Active Vitamin d deficiency(Confirmed) Active Vital Signs Most recent to oldest [Reference Range]: 1 Height 162.7 cm (03/28/21 1:20 PM) Weight 92.4 kg (03/28/21 1:20 PM) Pulse Rate [55-90 bpm] 87 bpm (03/28/21 1:20 PM) Body Mass Index [18.5-24.99] 34.91 *>HHI* (03/28/21 1:20 PM) Blood Pressure [90-138/55-84 mm Hg] 132/ 86mm Hg (03/28/21 1:20 PM) Temperature [96.8-100.4 DegF] 98.7 DegF (03/28/21 1:20 PM) Blood pressure sites Arm, left (03/28/21 1:20 PM) Temperature Route Temporal (03/28/21 1:20 PM) Dry Weight 92.4 kg (03/28/21 1:20 PM) Weight Obtained Via Standing scale (03/28/21 1:20 PM) Dry Weight Obtained Via Standing scale (03/28/21 1:20 PM) Social History Social History Type Response Smoking Status Never (less than 100 in lifetime) entered on: 02/28/21 Sex Care Team Personnel Name: Mary Eng MD Address: [address] [place] [id number]
--- OUTSIDE RECORDS SUMMARY | 2023-11-30 09:15 | XMS_ITS | Continuity of Care Document ---
Author Organization [facility] Address [address] [place] [address]- Care Team Providers Care Quality Lead Name Role Phone Kwasi Riggins MD, Mary Primary Care Physician Encounter [facility] Date(s): 10/24/19 - 11/23/19 [facility] [address] [address]- [facility] Allergies, Adverse Reactions, Alerts Substance Reaction Severity [...]
--- OUTSIDE RECORDS SUMMARY | 2023-11-30 09:15 | XMS_ITS | Continuity of Care Document ---
Author Organization [facility] [place] Address [address] [place] [address]- Care Team Providers Care Photoengraving Printer Name Role Phone Kwasi Riggins MD, Mary Primary Care Physician Encounter [facility] Date(s): 12/19/20 - 01/18/21 [facility] [place] [address] [place] [address]- Allergies, Adverse Reactions, Alerts Substance Reaction Severity [...] Bilateral mastectomy. Asymmetry due to surgery Diagnosis: [id number], 10/24/20 13:51:00 EDT, Supply Start Date: 10/24/20 [...] 10/24/20 13:00:0... Start Date: 10/24/20 Status: Ordered Problem List Condition Effective Dates Status Health Status Inform ant Anemia(Confirmed) Active Anxiety disorder(Confirmed) Active Depression(Confirmed) Active Esophageal reflux(Confirmed) Active MINERVA (generalized anxiety disorder)(Confirmed) Active History of Nimo-en-Y gastric bypass(Confirmed) Active History of breast cancer, Ri ght, IDC, grade II, T2 N0, ER/AL positive, Her-2/isa negative, 2012(Confirmed) Active Impulse control disorder(Confirmed) Active Mood disorder(Confirmed) Active MDD (major depressive disord er), recurrent episode, mild(Confirmed) Active Restless legs syndrome (RLS)(Confirmed) Active Vitamin d deficiency(Confirmed) Active Social History Social History Type Response Smoking Status Never (less than 100 in lifetime) entered on: 10/20/19 Sex
--- OUTSIDE RECORDS SUMMARY | 2023-11-30 09:15 | XMS_ITS | Continuity of Care Document ---
Author Organization [facility] [place] Address [address] [place] [address]- Care Team Providers Care Wood Cut Engraver Name Role Phone Kwasi Riggins MD, Mary Primary Care Physician Encounter [facility] Date(s): 12/17/20 - 01/16/21 [facility] [place] [address] [place] [address]- Allergies, Adverse Reactions, Alerts Substance Reaction Severity [...] Ri ght, IDC, grade II, T2 N0, ER/NV positive, Her-2/sia negative, 2012(Confirmed) Active Impulse control disorder(Confirmed) Active Mood disorder(Confirmed) Active MDD (major depressive disord er), recurrent episode, mild(Confirmed) Active Restless legs syndrome (RLS)(Confirmed) Active Vitamin d deficiency(Confirmed) Active Social History Social History Type Response Smoking Status Never (less than 100 in lifetime) entered on: 10/20/19 Sex
--- OUTSIDE RECORDS SUMMARY | 2023-11-30 09:15 | XMS_ITS | Continuity of Care Document ---
Author Organization [facility] ter Address [address] [place] [id number]- Care Team Providers Care Cs Associate Name Role Phone Kwasi Riggins [facility], [facility] Encounter 08/12/23 - 08/13/[address] [id number] Attending Physician: Not on Staff, Attending MD [...] influenza virus vaccine, inactivated 12/24/14 Dereje rded [id number] bivalent booster vax 12/27/21 Recorded SARS-CoV-2 (COVID-19) [...] Weight Start Date: 11/07/21 Status: Ordered ergocalciferol 06277 iu oral capsule See Instructions, TAKE 1 [...] in our office -delivered by patients own pharmacy-[facility] Neal, # 1 each, 11 Refills, Maintenance, 09/05/22 7:10:00 EDT, Injection, [facility], [facility] #[id number], 165.1, cm, 05/15/22 7:56... Start Date: 09/05/22 [...] Confirmed Active Obese class I Confirmed Active *[id number] Range Examiner Brooke Aguillon Confirmed Active MDD (major depressive disorder), recurrent episode, mild Confirmed Active Restless legs syndrome (RLS) Confirmed Active Vaginal bleeding Confirmed Active Vitamin d deficiency Confirmed Active Results Radiology Reports * Exam Date Time Procedure Performing Provider Status 08/12/23 5:22 PM MRI Breast Bilat W+W/O Contrast Auth (Verified) Notes: (MRI Breast Bilat W+W/O Contrast) Reason For Exam: Mastodynia , Personal history of malignant neoplasm of breast , Genetic susceptibility to other disease;Mastodynia , Personal history of malignant neoplasm of breast , Genetic susceptibility to other disease RESULT: MRI Breast Bilat W+W/O Contrast [facility] VISIT NUMBER :[id number] Patient Name: John Turner Date of : 1975 Date of Exam: 08-12-2023 Referring Physician: Ale Zeng [facility] Breast Specialist [address] [place] [address], [address] [place] [address] Exam: MR Breast Bilateral (C-/C+) W or WO CAD CPT 38290 [facility]: Bilateral breast MRI with and without contrast INDICATION: 48-year-old female who carries the deleterious ERIK gene mutation and has personal history of right breast invasive cancer. She is status post bilateral mastectomies with implant reconstruction in 2012. History of implant exchange in 2014. The patient reports right breast pain/tenderness for 2 years. No palpable abnormalities are reported. Patient is status post hysterectomy. COMPARISON:Prior breast MRI 04/20/2012 TECHNIQUE: Siemens Espree 1.5 Elly scanner with dual breast coil. Axial T1 non-fat-sat, axial STIR, axial T2 fat sat, and axial dynamic gadolinium (18 ml Dotarem) enhanced sequences at varying time intervals were obtained. Sagittal and coronal reconstructions were available. In addition, sagittal and axial silicone bright and silicone dark sequences were obtained to assess implant integrity. Images were reviewed in real-time on a workstation. The study was also reviewed on the [employer] workstation and CAD images were generated and reviewed. Color maps images and time/intensity curves were also generated. FINDINGS: There are bilateral subpectoral implants. On the left there is intracapsular rupture of the implants. There is no evidence of implant rupture on the right. There is no evidence of extracapsular silicone bilaterally. There are no morphologically suspicious lesions or suspicious enhancing lesions within either breast. There is no regional adenopathy. The incidentally imaged bones and soft tissues of the chest wall and upper abdomen are unremarkable. IMPRESSION: No MRI evidence of breast malignancy bilaterally. Left breast intracapsular implant rupture. ACR BI-RADS 2-benign Electronically Signed By: Hanane Castro MD Dictated By: Not on Staff , MOOKIE DUKE Dictated Date/Time: 08/13/23 10:19 a Reviewed By: Not on Staff , MOOKIE DUKE Signed By: Not on Staff , MOOKIE DUKE Signed Date/Time: 08/13/23 10:19 am Transcribed By: TS Transcribed Date/Time: 08/13/23 10:19 am Social History Social History Type Response Smoking Status Never (less than 100 in lifetime) entered on: 02/28/21 Sex Patient Care team information Care Team Personnel Name: Viviana Hillman Position: [facility] Onco RN Member Role: Primary Care Nurse Name: Nicole Torrez RN Position: [facility] SN RN Member Role: Primary Care Nurse Name: Irwin Soto CRNA Position: [facility] Associate Professional Member Role: Primary Care Nurse Address: Address: [address] [place] [address] [place] [address]- Name: Guerline Piña RN Position: [facility] RN Member Role: Primary Care Nurse Name: Cassandra Clement RN Position: [facility] AMB Nurse Member Role: Primary Care Nurse Name: Aide Mar RN Position: [facility] ED RN W/OE and Tasks Member Role: Primary Care Nurse Name: Mary Eng MD Position: [facility] Physician - Primary Care Member Role: PCP Address: Address: [address] [place] [phone]- [place] Name: Jessi Pittman [place] Position: [facility] Office Staff Member Role: Primary Care Nurse Name: Mila Veronica MA Position: [facility] Office Staff Member Role: Primary Care Nurse Name: Lucian Cline DO Position: [facility] FINANCIAL SERVICES TECHNICIAN MD Member Role: [employer] FINANCIAL SERVICES TECHNICIAN Physician Address: Address: [address] [place] [phone]- [place] Name: Hanane Callaway RN Position: [facility] Onco RN Member Role: Primary Care Nurse Name: Nila Mustafa RN Position: [facility] ED RN W/OE and Tasks Member Role: Primary Care Nurse Name: Donis Mcclellan MD Position: [facility] Physician - Behavioral Health Member Role: [employer] Consulting Physician Address: Address: [address] [place] [address]- Care Team Related Persons Name: PHILLIP GOETZ Address: home [address] [place] [address] Name: PHILLIP GOETZ Address: home [address] [place] [address] Name: SADA TURNER Address: home [address] [place] [address]
--- OUTSIDE RECORDS SUMMARY | 2023-11-30 09:15 | XMS_ITS | Continuity of Care Document ---
Author Organization [facility] Tiffany yulia Address [address] [place] [address] [address] [place] [address]- Care Team Providers Care Wildlife Biology Technician Name Role Phone Skyler Honeycutt Primary Care Physician [phone] Encounter [facility] Date(s): 10/27/23 - 11/26/23 [facility] [address] [place] [id number] Allergies, Adverse Reactions, Alerts Substance Reaction Severity [...] influenza virus vaccine, inactivated 12/24/14 Dereje rded [id number] bivalent booster vax 12/27/21 Recorded SARS-CoV-2 (COVID-19) [...] LET DISSOLVE ONCE DAILY., # 28 tablet, 1 Refills,Soft Stop, 11/18/23 6:52:00 EDT, [facility], 165.1, cm, 11/09/23 15:24:00 EDT, Height, 83, kg, 04/24/23 10:30:00 EST, Dry Weight Start Date: 11/18/23 Status: Ordered biotin 1000 mcg oral tablet 1 tablet = 1,000 mcg, By Mouth, Daily, # 30 tablet, 5 Refills, Maintenance, 11/18/23 6:52:00 EDT, Tablet, [facility], Partial fill upon patient request if the prescription is for a schedule II opioid drug., 165.1, cm, 11/09/23 15:24:00 EDT... Start Date: 11/18/23 Status: Ordered Caltrate 600 with D 1 tab, By Mouth, Daily, 0 Refills, Maintenance Start Date: 04/13/12 Status: Ordered clonazePAM 0.5 mg oral tablet 1 tablet = 0.5 mg, By Mouth, 3 times a day, # 90 tablet, 5 Refills, Maintenance, 09/25/23 9:21:00 EDT, Tablet, [facility], 165.1, cm, 07/24/23 13:45:00 EDT, Height, 83, kg, 04/24/23 10:30:00 EST, Dry Weight Start Date: 09/25/23 Stop Date: 03/23/24 Status: Ordered cloNIDine 0.1 mg oral tablet 0.1 mg, 1, tablet, By Mouth, Daily, As needed for anxiety, # 90 tablet, Refills 1, Tot. Refills 1, Maintenance, 09/25/23 9:21:00 EDT, Route to Pharmacy Electronically, [facility], 165.1, cm, 07/24/23 13:45:00 EDT, Height, 83, kg, 04/24/23... Start Date: 09/25/23 Stop Date: 03/23/24 Status: Ordered duloxetine 30 mg oral enteric [...] = 0.3 mg, Intramuscular, Once, # 1 each, 1 Refills, Soft Stop, 09/22/23 17:03:00 EDT, [facility], 165.1, cm, 07/24/23 13:45:00 EDT, Height, 83, kg, 04/24/23 10:30:00 EST, Dry Weight Start Date: 09/22/23 Status: Ordered ergocalciferol 46398 iu oral capsule See Instructions, TAKE 1 CAPSULE BY MOUTH EVERY WEEK, # 4 capsule, Refills 1, Tot. Refills 1, Maintenance, 09/22/23 17:02:00 EDT, Instructions Replace Required Details, Route to Pharmacy Electronically, [facility], Partial fill upon patien... Start Date: 09/22/23 Status: Ordered gabapentin 100 mg oral capsule See Instructions, 1 capsule By Mouth in AM and 2 capsule PO HS, # 270 capsule, Refills 1, Tot. Refills 1, Maintenance, 09/25/23 9:21:00 EDT, Instructions Replace Required Details, Route to Pharmacy Electronically, [facility], 165.1, cm, 05... Start Date: 09/25/23 Status: Ordered gabapentin 300 mg oral capsule 300 mg, 1, capsule, By Mouth, Daily at bedtime, # 90 capsule, Refills 1, Tot. Refills 1, Maintenance, 09/25/23 9:21:00 EDT, Route to Pharmacy Electronically, [facility], Partial fill upon patient request if the prescription is for a schedu... Start Date: 09/25/23 Stop Date: 03/23/24 Status: Ordered Mastectomy Bra See Instructions, # [...] Date: 02/25/23 Stop Date: 02/20/24 Status: Ordered omeprazole 20 mg oral delayed release tablet = 20 mg, By Mouth, 2 times a day, for 90 days, # 60 each, 1 Refills, Hard Stop 08/18/24 12:04:00 EDT, 02/20/24 12:04:00 EST, EC Tablet, [facility], 165.1, cm, 07/24/23 13:45:00 EDT, Height, 83, kg, 04/24/23 10:30:00 EST, Dry Weight Start Date: 02/20/24 Stop Date: 08/18/24 Status: Ordered oxybutynin 5 mg oral tablet See Instructions, TAKE 1 TABLET BY MOUTH TWICE DAILY, # 56 tablet, 0 Refills, Maintenance, 11/02/2411:31:00 EDT, [facility], 165.1, cm, 07/24/23 13:45:00 EDT, Height, 83, kg, 04/24/23 10:30:00 EST, Dry Weight Start Date: 11/02/23 Status: Ordered sulfamethoxazole-trimethoprim 400 mg-80 mg oral tablet 1 tablet, By Mouth, 2 times a day, # 14 tablet, 0 Refills, Maintenance, 03/05/22 8:26:00 EST, Tablet, [facility], Partial fill upon patient request if the prescription is for a schedule II opioid drug., 1 tablet By Mouth 2 times a day, 165... Start Date: 03/05/22 Status: Ordered tiZANidine 2 mg oral tablet 2 mg, 1, tablet, By Mouth, 3 times a day, PRN, # 90 tablet, Refills 0, Tot. Refills 0, Maintenance,Pain , Moderate, 11/16/23 10:31:00 EDT, Route to Pharmacy Electronically, [facility], Partial fill upon patient request if the prescription... Start Date: 11/16/23 Status: Ordered Vitamin C 1000 mg oral tablet 1 tablet = 1,000 mg, By Mouth, Daily, # 30 tablet, 0 Refills, Soft Stop, 11/18/23 6:52:00 EDT, [facility], 165.1, cm, 11/09/23 15:24:00 EDT, Height, 83, kg, 04/24/23 10:30:00 EST, DryWeight Start Date: 11/18/23 Status: Ordered Vivitrol 380 mg intramuscular injection, extended release = 380 mg, Intramuscular, Every 28 days, Every 28 days in our office -delivered by [facility], # 1 each, 11 Refills, Maintenance, 09/04/23 7:32:00 EDT, Injection, [facility], [facility] #[id number], 165.1, cm, 07/24/23 13:4... 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 Confirmed Active History of Nimo-en-Y gastric bypass Confirmed Active History of breast cancer, Right, IDC, grade II, T2 N0, ER/NM positive, Her-2/sia negative, 2012 Confirmed Active Impulse control disorder Confirmed Active Mood disorder Confirmed Active Obese class I Confirmed Active Obsessive compulsive disorder Confirmed Active Opioid dependence on agonist therapy Confirmed Active *[id number] [facility] Membership Advisors Brooke Aguillon Confirmed Active Post traumatic stress disorder (PTSD) Confirmed Active Major depressive disorder, recurrent, unspecified Confirmed Active MDD (major depressive disorder), recurrent episode, mild Confirmed Active Major depressive disorder, recurrent episode, moderate Confirmed Active Restless legs syndrome (RLS) Confirmed [...] Member Role: Primary Care Nurse Address: Address: [address] [place] [address] Anesthesia Services [address] Name: Guerline Piña RN Position: [facility] RN Member Role: Primary Care Nurse Name: Cassandra Clement RN Position: [facility] RN Member Role: Primary Care Nurse Name: Aide Mar RN Position: [facility] ED RN W/OE and Tasks Member Role: Primary Care Nurse Name: Skyler Honeycutt Position: [facility] PCO Associate Professional Member Role: PCP Address: Address: [address] [facility] [place] [address]- [place] Name: Jessi Pittman [place] Position: [facility] Staff Member Role: Primary Care Nurse Name: Mila Veronica MA Position: [facility] Staff Member Role: Primary Care Nurse Name: Lucian Cline DO Position: [facility] HELP DESK ASSISTANT MD Member Role: [employer] HELP DESK ASSISTANT Physician Address: Address: [address] [place] [phone]- [place] Name: Hanane Callaway RN Position: [facility] Onco RN Member Role: Primary Care Nurse Name: Nila Mustafa RN Position: [facility] ED RN W/OE and Tasks Member Role: Primary Care Nurse Name: Donis Mcclellan MD Position: [facility] Physician - Behavioral Health Member Role: [employer] Consulting Physician Address: Address: [address] [place] [address]- [place] Care Team Related Persons Name: PHILLIP GOETZ Address: home [address] [place] [address] Name: PHILLIP GOETZ Address: home [address] [place], [place] Name: SADA KRAMER Address: home [address] [place] [address]
--- OUTSIDE RECORDS SUMMARY | 2023-11-30 09:15 | XMS_ITS | Continuity of Care Document ---
Author Organization [facility] Primary [facility] [place] Address [address] [place] [address]- Care Team Providers Care Grocery Supervisor Name Role Phone Kwasi Riggins MD, Mary Primary Care Physician Encounter [facility] Date(s): 02/28/21 - 03/30/21 [facility] [address] [place] [address]- Attending Physician: Brielle Oakes Admitting Physician: Brielle [...] 07/11/14 15:14:49 Start Date: 07/11/14 Status: Ordered Caltrate 600 [...] Ri ght, IDC, grade II, T2 N0, ER/IL positive, Her-2/sia negative, 2012(Confirmed) Active Impulse control disorder(Confirmed) Active Mood disorder(Confirmed) Active Obese class I(Confirmed) Active MDD (major depressive disord er), recurrent episode, mild(Confirmed) Active Restless legs syndrome (RLS)(Confirmed) Active Vitamin d deficiency(Confirmed) Active Social History Social History Type Response Smoking Status Never (less than 100 in lifetime) entered on: 02/28/21 Sex
--- OUTSIDE RECORDS SUMMARY | 2023-11-30 09:15 | XMS_ITS | Continuity of Care Document ---
Author Organization [facility] Primary Car e [place] Address [address] [place] [address]- Care Team Providers Care Plant Safety Leader Name Role Phone Kwasi Riggins MD, Mary Primary Care Physician Encounter [facility] Date(s): 03/26/22 - 04/25/22 [facility] Primary [facility] [place] [address] [place] [address]- Allergies, Adverse Reactions, Alerts Substance Reaction Severity [...] Weight Start Date: 11/07/21 Status: Ordered ergocalciferol 87574 iu oral capsule See Instructions, TAKE 1 [...] 7:19:00 EDT, Injection, [facility], [facility] #[id number], 162.7, cm, 08/02/21 11:0... 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, ER/HI positive, Her-2/sia negative, 2012 Confirmed Active Impulse [...] Care Team Personnel Name: Viviana Hillman Position: [facility] Onco RN Member Role: Primary Care Nurse Name: Nicole Torrez RN Position: [facility] SN RN Member Role: Primary Care Nurse Name: Irwin Soto CRNA Position: [facility] Associate Professional Member Role: Primary Care Nurse Address: Address: [address] [place] [address] [place] [address]- Name: Cassandra Clement RN Position: [facility] AMB Nurse Member Role: Primary Care Nurse Name: Aide Mar RN Position: [facility] ED RN W/OE and Tasks Member Role: Primary Care Nurse Name: Mary Eng MD Position: [facility] Primary Care Physician Member Role: PCP Address: Address: [address] [place] [phone]- Name: Kan Wei Position: [facility] Cardio/Pulm Mgr ([facility]) Member Role: Primary Care Nurse Name: Jessi Antonio Position: [facility] RN Member Role: Primary Care Nurse Name: Mila Anthony Position: [facility] RN Member Role: Primary Care Nurse Name: Lucian Cline DO Position: [facility] STAGECRAFT PROFESSOR MD Member Role: [employer] STAGECRAFT PROFESSOR Physician Address: Address: [address] [place] [address] [facility] [place] [address]- Name: Guerline Yarbrough RN Position: [facility] RN Member Role: Primary Care Nurse Name: Hanane Callaway RN Position: [facility] Onco RN Member Role: Primary Care Nurse Name: Nila Mustafa RN Position: [facility] ED RN W/OE and Tasks Member Role: Primary Care Nurse Name: Donis Mcclellan MD Position: [facility] Psychiatry MD Member Role: [employer] Consulting Physician Address: Address: [address] [place] [address]- Care Team Related Persons Name: PHILLIP GOETZ Address: home [address] [place] [address] Name: PHILLIP GOETZ Address: home [address] [place] [address] Name: SADA KRAMER Address: home [address] [place] [address]
--- OUTSIDE RECORDS SUMMARY | 2023-11-30 09:15 | XMS_ITS | Continuity of Care Document ---
Author Organization [facility] Primary [facility] [place] Address [address] [place] [address]- Care Team Providers Care Data Management Analyst Name Role Phone Kwasi Riggins MD, Mary Primary Care Physician Encounter [facility] Date(s): 01/22/22 - 02/21/22 [facility] [place] [address] [place] [address]- Allergies, Adverse Reactions, Alerts Substance Reaction Severity [...] Refills, Maintenance, 01/21/22 14:56:00 EDT, Tablet, [facility], 162.7, cm, 12/16/21 13:04:00 EDT, Height, [...] Weight Start Date: 11/07/21 Status: Ordered ergocalciferol 63480 iu oral capsule See Instructions, TAKE 1 [...] in our office -delivewred by patients own pharmacy-[facility] Neal, # 1 kit, 11 Refills, Maintenance, 08/23/21 7:19:00 EDT, Injection, [facility], [facility] #[id number], 162.7, cm, 08/02/21 11:0... 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, ER/OR positive, Her-2/sia negative, 2012 Confirmed Active Impulse [...] Care Team Personnel Name: Viviana Hillman Position: [facility] Onco RN Member Role: Primary Care Nurse Name: Nicole Torrez RN Position: [facility] SN RN Member Role: Primary Care Nurse Name: Irwin Soto CRNA Position: [facility] Associate Professional Member Role: Primary Care Nurse Address: Address: [address] [place] [address] [place] [address]- Name: Cassandra Clement RN Position: [facility] AMB Nurse Member Role: Primary Care Nurse Name: Aide Mar RN Position: [facility] ED RN W/OE and Tasks Member Role: Primary Care Nurse Name: Mary Eng MD Position: [facility] Primary Care Physician Member Role: PCP Address: Address: [address] [place] [id number]- Name: Kan Wei Position: [facility] Cardio/Pulm Mgr ([facility]) Member Role: Primary Care Nurse Name: Jessi Antonio Position: [facility] RN Member Role: Primary Care Nurse Name: Mila Anthony Position: [facility] RN Member Role: Primary Care Nurse Name: Lucian Cline DO Position: [facility] LABORER AMMUNITION ASSEMBLY MD Member Role: [employer] LABORER AMMUNITION ASSEMBLY Physician Address: Address: [address] [place] [address] [place] [address]- [place] Name: Guerline Yarbrough RN Position: [facility] RN Member Role: Primary Care Nurse Name: Hanane Callaway RN Position: [facility] Onco RN Member Role: Primary Care Nurse Name: Nila Mustafa RN Position: [facility] ED RN W/OE and Tasks Member Role: Primary Care Nurse Name: Donis Mcclellan MD Position: [facility] Psychiatry MD Member Role: [employer] Consulting Physician Address: Address: [address] [place] [address]- Care Team Related Persons Name: PHILLIP GOETZ Address: [address] [place] [address] Name: PHILLIP GOETZ Address: home [address] [place] [address] Name: SADA KRAMER Address: home [address] [place] [id number]
--- OUTSIDE RECORDS SUMMARY | 2023-11-30 09:15 | XMS_ITS | Continuity of Care Document ---
Author Organization [facility] ter Address [address] [place] [address]- Care Team Providers Care Netezza Architect Name Role Phone Kwasi Riggins MD, Mary Primary Care Physician Encounter [facility] Date(s): 12/26/21 - 02/06/[address] [address] Attending Physician: Mary Eng MD Admitting Physician: Mary Eng MD Referring Physician: Mary Eng MD Allergies, [...] Weight Start Date: 11/07/21 Status: Ordered ergocalciferol 25723 iu oral capsule See Instructions, TAKE 1 CAPSULE BY MOUTH EVERY WEEK, # 4 capsule, Refills 5, Tot. Refills 5, Maintenance, 11/07/21 9:25:00 EDT, Instructions Replace Required Details, Route to Pharmacy Electronically, [facility], Partial fill upon patient... Start Date: 11/07/21 Status: Ordered gabapentin 100 mg oral capsule See Instructions, 1 capsule By Mouth in AM and 2 capsule PO HS, # 360 capsule, Refills 1, Tot. Refills 1, Maintenance, 01/21/22 14:58:00 EDT, Instructions Replace Required Details, Route to Pharmacy Electronically, [facility], 162.7, cm, 0... Start Date: [...] our office -delivewred by patients own pharmacy-[facility], # 1 kit, 11 Refills, Maintenance, 08/23/21 7:19:00 EDT, Injection, [facility], [id number], 162.7, cm, 08/02/21 11:0... Start Date: 08/23/21 [...] Care Team Personnel Name: Viviana Hillman Position: [facility] Onco RN Member Role: Primary Care Nurse Name: Nicole Torrez RN Position: [facility] SN RN Member Role: Primary Care Nurse Name: Irwin Soto CRNA Position: [facility] Associate Professional Member Role: Primary Care Nurse Address: Address: [address] [place] [address] [place] [address]- Name: Cassandra Clement RN Position: [facility] AMB Nurse Member Role: Primary Care Nurse Name: Aide Mar RN Position: [facility] ED RN W/OE and Tasks Member Role: Primary Care Nurse Name: Mary Eng MD Position: [facility] Primary Care Physician Member Role: PCP Address: Address: [address] [place] [address]- Name: Kan Wei Position: [facility] Cardio/Pulm Mgr ([facility] Member Role: Primary Care Nurse Name: Jessi Antonio Position: [facility] RN Member Role: Primary Care Nurse Name: Mila Anthony Position: [facility] RN Member Role: Primary Care Nurse Name: Lucian Cline DO Position: [facility] TROLLEY CAR OPERATOR MD Member Role: Lifetime TROLLEY CAR OPERATOR Physician Address: Address: [address] [place] [address] [facility] [place] [address]- Name: Guerline Yarbrough RN Position: [facility] RN Member Role: Primary Care Nurse Name: Hanane Callaway RN Position: [facility] Onco RN Member Role: Primary Care Nurse Name: Nila Mustafa RN Position: [facility] ED RN W/OE and Tasks Member Role: Primary Care Nurse Name: Donis Mcclellan MD Position: [facility] Psychiatry MD Member Role: Lifetime Consulting Physician Address: Address: [address] [place] [address]- Care Team Related Persons Name: PHILLIP GOETZ Address: home [address] [place] [address] Name: PHILLIP GOETZ Address: home [address] [place] [address] Name: SADA KRAMER Address: home [address] [place] [address]
--- OUTSIDE RECORDS SUMMARY | 2023-11-30 09:15 | XMS_ITS | Continuity of Care Document ---
Author Organization [facility] yulia Address [address] [place] [address] [address] [place] [address]- Care Team Providers Care Teller Head Name Role Phone Kwasi Riggins MD, Mary Primary Care Physician Encounter [facility] Date(s): 02/10/22 - 03/12/22 [facility] [address] [place], [place] [address] Allergies, Adverse Reactions, Alerts Substance Reaction [...] Weight Start Date: 11/07/21 Status: Ordered ergocalciferol 71177 iu oral capsule See Instructions, TAKE 1 [...] 11 Refills, Maintenance, 08/23/21 7:19:00 EDT, [id number], 162.7, cm, 08/02/21 11:0... 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 Active Impulse [...] Team Personnel Name: Viviana Hillman Position: [facility] Onco RN Member Role: Primary Care Nurse Name: Nicole Torrez RN Position: [facility] SN RN Member Role: Primary Care Nurse Name: Irwin Soto CRNA Position: [facility] Associate Professional Member Role: Primary Care Nurse Address: Address: [address] [place] [address] [place] [address]- Name: Cassandra Clement RN Position: [facility] AMB Nurse Member Role: Primary Care Nurse Name: Aide Mar RN Position: [facility] ED RN W/OE and Tasks Member Role: Primary Care Nurse Name: Mary Eng MD Position: [facility] Primary Care Physician Member Role: PCP Address: Address: [address] [place] [address]- Name: Kan Wei Position: [facility] Cardio/Pulm Mgr ([facility]) Member Role: Primary Care Nurse Name: Jessi Antonio Position: [facility] RN Member Role: Primary Care Nurse Name: Mila Anthony Position: [facility] RN Member Role: Primary Care Nurse Name: Lucian Cline DO Position: [facility] CLINICAL RESEARCH MONITOR MD Member Role: Lifetime CLINICAL RESEARCH MONITOR Physician Address: Address: [address] [place], [place] [address]s [facility] [place] [address]- [place] Name: Guerline Yarbrough RN Position: [facility] RN Member Role: Primary Care Nurse Name: Hanane Callaway RN Position: [facility] Onco RN Member Role: Primary Care Nurse Name: Nila Mustafa RN Position: [facility] ED RN W/OE and Tasks Member Role: Primary Care Nurse Name: Donis Mcclellan MD Position: [facility] Psychiatry MD Member Role: Lifetime Consulting Physician Address: Address: [address] [place] [address]- Care Team Related Persons Name: SOFY, PHILLIP Address: home [address] [place] [address] Name: PHILLIP GOETZ Address: home [address] [place] [address] Name: SADA KRAMER Address: home [address] [place] [address]
--- OUTSIDE RECORDS SUMMARY | 2023-11-30 09:15 | XMS_ITS | Continuity of Care Document ---
Author Organization [facility] Primary [place] [facility] [place] Address [address] [place] [address]- Care Team Providers Care Day Haul Youth Supervisor Name Role Phone Kwasi Riggins MD, Mary Primary Care Physician Encounter [facility] Date(s): 05/29/20 - 06/28/20 [facility] Care [place] [address] [place] [address]- Allergies, Adverse Reactions, Alerts Substance Reaction Severity [...]
--- OUTSIDE RECORDS SUMMARY | 2023-11-30 09:15 | XMS_ITS | Continuity of Care Document ---
Author Organization [facility] Primary Car e [place] Address [address] [place] [address]- Care Team Providers Care Stay Cutter Name Role Phone Kwasi Riggins MD, Mary Primary Care Physician Encounter [facility] Date(s): 06/06/20 - 07/06/20 [facility] Care [place] [address] [place] [address]- Allergies, Adverse Reactions, Alerts Substance Reaction Severity [...] Refills, Maintenance Start Date: 07/09/10 Status: Ordered Vitamin C 1000 mg oral tablet 1 tablet = 1,000 mg, By Mouth, Daily, for 30 days, # 30 tablet, 5 Refills, Hard Stop 01/01/21 18:40:00 EDT, 07/05/20 18:40:00 EDT, [facility], 162.7, cm, 04/03/20 11:43:00 EST, [...]
--- OUTSIDE RECORDS SUMMARY | 2023-11-30 09:15 | XMS_ITS | Continuity of Care Document ---
Author Organization [facility] Address [address] [place] [address]- Care Team Providers Care Press Operator Helper Name Role Phone Mary Eng MD Primary Care Physician Encounter [facility] Date(s): 02/07/21 - 03/09/21 [facility] [address] [place] [address]- Attending Physician: Brielle Oakes Admitting Physician: Brielle [...] Ri ght, IDC, grade II, T2 N0, ER/CA positive, Her-2/sia negative, 2012(Confirmed) Active Impulse control disorder(Confirmed) Active Mood disorder(Confirmed) Active Obese class I(Confirmed) Active MDD (major depressive disord er), recurrent episode, mild(Confirmed) Active Restless legs syndrome (RLS)(Confirmed) Active Vitamin d deficiency(Confirmed) Active Social History Social History Type Response Smoking Status Never (less than 100 in lifetime) entered on: 02/28/21 Sex
--- OUTSIDE RECORDS SUMMARY | 2023-11-30 09:15 | XMS_ITS | Continuity of Care Document ---
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
--- OUTSIDE RECORDS SUMMARY | 2023-11-30 09:15 | XMS_ITS | Continuity of Care Document ---
Author Organization [facility] Address [address] [place] [address]- Care Team Providers Care Bead Maker Name Role Phone Kwasi Riggins MD, Mary Primary Care Physician Encounter [facility] Date(s): 03/13/23 - 04/12/23 [facility] [address] [place] [address]- [place] Allergies, Adverse Reactions, Alerts Substance Reaction [...] influenza virus vaccine, inactivated 12/24/14 Dereje rded [id number] bivalent booster vax 12/27/21 Recorded SARS-CoV-2 (COVID-19) [...] Weight Start Date: 11/07/21 Status: Ordered ergocalciferol 27353 iu oral capsule See Instructions, TAKE 1 [...] Refills, Maintenance, 02/25/23 12:04:00 EST, EC Tablet, [facility], 165.1, cm, 05/15/22 7:56:00 EST, Height, 85, kg, 02/11/22 13:57:00 EST, Dry Weight Start Date: 02/25/23 Status: Ordered omeprazole 20 mg oral delayed release tablet = 20 mg, By Mouth, 2 times a day, for 90 days, # 60 each, 3 Refills, Hard Stop 02/20/24 12:04:00 EST, 02/25/23 12:04:00 EST, EC Tablet, [facility], 165.1, cm, [...] Stop 06/10/23 16:44:00 EDT, 12/12/22 16:44:00 EDT, [facility] [...] in our office -delivered by patients own pharmacy-[facility], # 1 each, 11 Refills, Maintenance, 09/05/22 7:10:00 EDT, Injection, [facility], [id number], 165.1, cm, 05/15/22 7:56... 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 Brooke Aguillon Confirmed Active MDD (major depressive disorder), recurrent episode, mild Confirmed Active Restless legs syndrome (RLS) Confirmed Active Vitamin d deficiency Confirmed Active Social History Social History Type Response Smoking Status Never (less than 100 in lifetime) entered on: 02/28/21 Sex Patient Care team information Care Team Personnel Name: Viviana Hillman Position: [facility] Onco RN Member Role: Primary Care Nurse Name: Nicole Torrez RN Position: [facility] SN RN Member Role: Primary Care Nurse Name: Irwin Soto CRNA Position: [facility] Associate Professional Member Role: Primary Care Nurse Address: Address: [address] [place] [address] [place] [address]- [place] Name: Guerline Piña RN Position: [facility] RN Member Role: Primary Care Nurse Name: Cassandra Clement RN Position: [facility] AMB Nurse Member Role: Primary Care Nurse Name: Aide Mar RN Position: [facility] ED RN W/OE and Tasks Member Role: Primary Care Nurse Name: Mary Eng MD Position: [facility] Physician - Primary Care Member Role: PCP Address: Address: [address] [place] [address] - [place] Name: Jessi Pittman [place] Position: [facility] RN Member Role: Primary Care Nurse Name: Mila Anthony Position: [facility] RN Member Role: Primary Care Nurse Name: Lucian Cline DO Position: [facility] STUNT DRIVER MD Member Role: Lifetime STUNT DRIVER Physician Address: Address: [address] [place] [address] - [place] Name: Hanane Callaway RN Position: [facility] Onco RN Member Role: Primary Care Nurse Name: Nila Mustafa RN Position: [facility] ED RN W/OE and Tasks Member Role: Primary Care Nurse Name: Donis Mcclellan MD Position: [facility] Physician - Behavioral Health Member Role: Lifetime Consulting Physician Address: Address: [address] [place] [address] - Care Team Related Persons Name: PHILLIP GOETZ Address: home [address] [place], [place] Name: PHILLIP GOETZ Address: home [address] [place], [place] Name: SADA KRAMER Address: home [address] [place] [address]
--- OUTSIDE RECORDS SUMMARY | 2023-11-30 09:15 | XMS_ITS | Continuity of Care Document ---
Author Organization [facility] Primary Car [facility] [place] Address [address] [place] [address]- Care Team Providers Care Rn Sane Name Role Phone Kwasi Riggins MD, Mary Primary Care Physician Encounter [facility] Date(s): 05/19/22 - 06/18/22 [facility] Care [place] [address] [place] [address]- Allergies, Adverse Reactions, Alerts Substance Reaction Severity [...] influenza virus vaccine, inactivated 12/24/14 Dereje rded [id number] bivalent booster vax 12/27/21 Recorded SARS-CoV-2 (COVID-19) [...] Weight Start Date: 11/07/21 Status: Ordered ergocalciferol 40691 iu oral capsule See Instructions, TAKE 1 [...] patients own pharmacy-[facility], # 1 kit, 11 Refills, Maintenance, 08/23/21 7:19:00 EDT, Injection, [facility], [facility] #[id number], 162.7, cm, 08/02/21 11:0... Start Date: 08/23/21 [...] Care Team Personnel Name: Viviana Hillman Position: [facility] Onco RN Member Role: Primary Care Nurse Name: Nicole Torrez RN Position: [facility] SN RN Member Role: Primary Care Nurse Name: Irwin Soto CRNA Position: [facility] Associate Professional Member Role: Primary Care Nurse Address: Address: [address] [place] [address] [place] [address]- Name: Cassandra Clement RN Position: [facility] AMB Nurse Member Role: Primary Care Nurse Name: Aide Mar RN Position: [facility] ED RN W/OE and Tasks Member Role: Primary Care Nurse Name: Mary Eng MD Position: [facility] Primary Care Physician Member Role: PCP Address: Address: [address] [place] [address]- [place] Name: Kan Wei Position: [facility] Cardio/Pulm Mgr [place] Member Role: Primary Care Nurse Name: Jessi Antonio Position: [facility] RN Member Role: Primary Care Nurse Name: Mila Anthony Position: [facility] RN Member Role: Primary Care Nurse Name: Lucian Cline DO Position: [facility] ABRASIVE GRINDER MD Member Role: Lifetime ABRASIVE GRINDER Physician Address: Address: [address] [place] [address] [place] [address]- [place] Name: Guerline Yarbrough RN Position: [facility] RN Member Role: Primary Care Nurse Name: Hanane Callaway RN Position: [facility] Onco RN Member Role: Primary Care Nurse Name: Nila Mustafa RN Position: [facility] ED RN W/OE and Tasks Member Role: Primary Care Nurse Name: Donis Mcclellan MD Position: [facility] Psychiatry MD Member Role: Lifetime Consulting Physician Address: Address: [address] [place] [address]- Care Team Related Persons Name: PHILLIP GOETZ Address: home [address] [place] [address] Name: PHILLIP GOETZ Address: [address] [place] [address] Name: SADA KRAMER Address: home [address] [place] [address]
--- OUTSIDE RECORDS SUMMARY | 2023-11-30 09:15 | XMS_ITS | Continuity of Care Document ---
Author Organization [facility] Primary Car e [place] Address [address] [place] [address]- Care Team Providers Care Display Department Manager Name Role Phone Kwasi Riggins MD, Mary Primary Care Physician Encounter [facility] Date(s): 02/28/22 - 04/03/22 [facility] Primary Care [place] [address] [place] [address]- Attending Physician: Navin Moon Allergies, Adverse Reactions, Alerts Substance Reaction Severity [...] Weight Start Date: 11/07/21 Status: Ordered ergocalciferol 94894 iu oral capsule See Instructions, TAKE 1 [...] Refills, Maintenance, 03/02/22 12:04:00 EST, EC Tablet, [facility], 162.7, cm, 12/16/21 13:04:00 [...] day, 165... Start Date: 03/05/22 Status: Ordered Tamiflu 75 mg oral capsule 1 capsule = 75 mg, By Mouth, 2 times a day, for 5 days, # 10 capsule, 0 Refills, Acute 04/05/22 13:40:00 EST, 03/31/22 13:40:00 EST, Capsule, [id number], Partial fill upon patient request if the prescription is for a schedule II opioi... Start Date: 03/31/22 Stop Date: 04/05/22 Status: Ordered Vitamin C 1000 mg oral [...] office -delivewred by patients own pharmacy-[facility], # 1 kit, 11 Refills, Maintenance, 08/23/21 7:19:00 EDT, Injection, Community, [facility][id number], 162.7, cm, 08/02/21 11:0... Start Date: 08/23/21 [...] Care Team Personnel Name: Viviana Hillman Position: [facility] Onco RN Member Role: Primary Care Nurse Name: Nicole Torrez RN Position: [facility] SN RN Member Role: Primary Care Nurse Name: Irwin Soto CRNA Position: [facility] Associate Professional Member Role: Primary Care Nurse Address: Address: [address] [place] [address] [place] [address]- Name: Cassandra Clement RN Position: [facility] AMB Nurse Member Role: Primary Care Nurse Name: Aide Mar RN Position: [facility] ED RN W/OE and Tasks Member Role: Primary Care Nurse Name: Mary Eng MD Position: [facility] Primary Care Physician Member Role: PCP Address: Address: [address] [place] [address]- Name: Kan Wei Position: [facility] Cardio/Pulm Mgr ([facility]) Member Role: Primary Care Nurse Name: Jessi Antonio Position: [facility] RN Member Role: Primary Care Nurse Name: Mila Anthony Position: [facility] RN Member Role: Primary Care Nurse Name: Lucian Cline DO Position: [facility] NURSE OUTREACH CASE MANAGER MD Member Role: Lifetime NURSE OUTREACH CASE MANAGER Physician Address: Address: [address] [place] [address] [facility] Finance Officer [place] [address]- [place] Name: Guerline Yarbrough RN Position: [facility] RN Member Role: Primary Care Nurse Name: Hanane Callaway RN Position: [facility] Onco RN Member Role: Primary Care Nurse Name: Nila Mustafa RN Position: [facility] ED RN W/OE and Tasks Member Role: Primary Care Nurse Name: Donis Mcclellan MD Position: [facility] Psychiatry MD Member Role: Lifetime Consulting Physician Address: Address: [address] [place] [address]- Care Team Related Persons Name: PHILLIP GOETZ Address: [address] [place] [address] Name: PHILLIP GOETZ Address: [address] [place] [address] Name: SADA KRAMER Address: home [address] [place] [address]
--- OUTSIDE RECORDS SUMMARY | 2023-11-30 09:15 | XMS_ITS | Continuity of Care Document ---
Author Organization [facility] Primary [facility] [place] Address [address] [place] [address]- Care Team Providers Care Siene Maker Name Role Phone Mary Eng MD Primary Care Physician Encounter [facility] Date(s): 07/25/19 - 08/01/19 [facility] Primary Care [address] [address]- [facility] Encounter Diagnosis Insomnia(Discharge Diagnosis) - 07/26/19 Attending Physician: Mary Eng MD Allergies, Adverse [...] 28 capsule, 0 Refills, Maintenance, 07/08/19 15:26:00 [facility], 163, cm, 04/18/19 8:34:00 EST, [...] syndrome (RLS)(Confirmed) Active Vitamin d deficiency(Confirmed) Active Diagnosis Diagnosis Type Effective Dates Health Status Clini ella Service Informant Insomnia Discharge Diagnosis 07/26/19 Social History Social History Type Response Smoking Status Never smoker entered on: 04/28/13 Sex
--- OUTSIDE RECORDS SUMMARY | 2023-11-30 09:15 | XMS_ITS | Continuity of Care Document ---
Author Organization [facility] Primary Car [facility] [place] Address [address] [place] [address]- Care Team Providers Care Networking Specialist Name Role Phone Kwasi Riggins MD, Mary Primary Care Physician Encounter [facility] Date(s): 11/24/19 - 12/24/19 [facility] Primary Care [address] [address]- [facility] Allergies, Adverse Reactions, Alerts Substance [...]
--- OUTSIDE RECORDS SUMMARY | 2023-11-30 09:15 | XMS_ITS | Continuity of Care Document ---
Author Organization [facility] Primary Car e [place] Address [address] [place] [address]- Care Team Providers Care Loom Inspector Name Role Phone Kwasi Riggins MD, Mary Primary Care Physician Encounter [facility] Date(s): 03/05/22 - 04/04/22 [facility] Care [place] [address] [place] [address]- Allergies, Adverse Reactions, Alerts Substance Reaction Severity [...] Weight Start Date: 11/07/21 Status: Ordered ergocalciferol 63127 iu oral capsule See Instructions, TAKE 1 [...] 90 each, 3 Refills, Maintenance, 11/21/21 15:26:[facility], Partial fill upon patient request [...] 04/05/22 13:40:00 EST, 03/31/22 13:40:00 EST, Capsule, [id number], Partial fill upon patient request if the [...] in our office -delivewred by patients own pharmacy-[facility], # 1 kit, 11 Refills, Maintenance, 08/23/21 7:19:00 EDT, Injection, Community, [facility] #[id number], 162.7, cm, 08/02/21 11:0... 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, ER/KS positive, Her-2/sia negative, 2012 Confirmed Active Impulse [...] Member Role: Primary Care Nurse Address: Address: [address] [place] [address] [place] [address]- Name: Cassandra Clement RN Position: [facility] AMB Nurse Member Role: Primary Care Nurse Name: Aide Mar RN Position: [facility] ED RN W/OE and Tasks Member Role: Primary Care Nurse Name: Mary Eng MD Position: [facility] Primary Care Physician Member Role: PCP Address: Address: [address] [place] [id number]- [place] Name: Kan Wei Position: [facility] Cardio/Pulm Mgr ([facility]) Member Role: Primary Care Nurse Name: Jessi Antonio Position: [facility] RN Member Role: Primary Care Nurse Name: Mila Anthony Position: [facility] RN Member Role: Primary Care Nurse Name: Lucian Cline DO Position: [facility] SUPERVISOR SLASHING DEPARTMENT MD Member Role: Lifetime SUPERVISOR SLASHING DEPARTMENT Physician Address: Address: [address] [place] [address] [facility] Laundry Machine Mechanic [place] [address]- [place] Name: Guerline Yarbrough RN Position: [facility] RN Member Role: Primary Care Nurse Name: Hanane Callaway RN Position: [facility] Onco RN Member Role: Primary Care Nurse Name: Nila Mustafa RN Position: [facility] ED RN W/OE and Tasks Member Role: Primary Care Nurse Name: Donis Mcclellan MD Position: [facility] Psychiatry MD Member Role: Lifetime Consulting Physician Address: Address: [address] [place] [address]- Care Team Related Persons Name: PHILLIP GOETZ Address: home [address] [place] [address] Name: PHILLIP GOETZ Address: home [address] [place] [address] Name: SADA KRAMER Address: home [address] [place] [address]
--- OUTSIDE RECORDS SUMMARY | 2023-11-30 09:16 | XMS_ITS | Continuity of Care Document ---
Author Organization [facility] Primary Car e [place] Address [address] [place] [address]- Care Team Providers Care Regional Planner Name Role Phone Kwasi Riggins MD, Mary Primary Care Physician Encounter [facility] Date(s): 09/15/23 - 10/15/23 [facility] Primary Care [place] [address] [place], [place] [address] Allergies, Adverse Reactions, Alerts Substance Reaction Severity [...] influenza virus vaccine, inactivated 12/24/14 Dereje rded [id number] bivalent booster vax 12/27/21 Recorded SARS-CoV-2 (COVID-19) [...] DAILY., # 28 tablet, 1 Refills,Soft Stop, 09/22/23 17:01:00 EDT, [facility], 165.1, cm, 07/24/23 13:45:00 EDT, Height, 83, kg, 04/24/23 10:30:00 EST, Dry Weight Start Date: 09/22/23 Status: Ordered biotin 1000 mcg oral tablet 1 tablet = 1,000 mcg, By Mouth, Daily, # 30 tablet, 0 Refills, Maintenance, 09/22/23 17:57:00 EDT, Tablet, [facility], Partial fill upon patient request if the prescription is for a schedule II opioid drug., 165.1, cm, 07/24/23 13:45:00 ED... Start Date: 09/22/23 Status: Ordered Caltrate 600 with D 1 [...] Weight Start Date: 09/22/23 Status: Ordered ergocalciferol 63208 iu oral capsule See Instructions, TAKE 1 [...] Ordered oxybutynin 5 mg oral tablet 1 tablet, By Mouth, 2 times a day, # 56 tablet, 0 Refills, Maintenance, 10/05/23 12:58:00 EDT, [facility], 165.1, cm, 07/24/23 13:45:00 EDT, Height, 83, kg, 04/24/23 10:30:00 EST, Dry Weight Start Date: 10/05/23 Status: Ordered sulfamethoxazole-trimethoprim 400 mg-80 mg oral [...] # 30 tablet, 0 Refills, Soft Stop, 09/22/23 17:02:00 EDT, [facility], 165.1, cm, 07/24/23 13:45:00 EDT, Height, 83, kg, 04/24/23 10:30:00 EST, Dry Weight Start Date: 09/22/23 Status: Ordered Vivitrol 380 mg intramuscular injection, extended release = 380 mg, Intramuscular, Every 28 days, Every 28 days in our office -delivered by patients own pharmacy-[facility], # 1 each, 11 Refills, Maintenance, 09/04/23 7:32:00 EDT, Injection, Community, [id number], 165.1, cm, 07/24/23 13:4... 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 Active Post traumatic stress [...] Care Team Personnel Name: Viviana Hillman Position: [facility] Onco RN Member Role: Primary Care Nurse Name: Nicole Torrez RN Position: [facility] SN RN Member Role: Primary Care Nurse Name: Irwin Soto CRNA Position: [facility] Associate Professional Member Role: Primary Care Nurse Address: Address: [address] [place] [address] [place] [address]- Name: Guerline Piña RN Position: [facility] RN Member Role: Primary Care Nurse Name: Cassandra Clement RN Position: [facility] Nurse Member Role: Primary Care Nurse Name: Aide Mar RN Position: [facility] ED RN W/OE and Tasks Member Role: Primary Care Nurse Name: Mary Eng MD Position: [facility] Physician - Primary Care Member Role: PCP Address: Address: [address] [place] [address]- Name: [place] Pittman [place] Position: [facility] Office Staff Member Role: Primary Care Nurse Name: Mila Veronica [place] Position: [facility] Office Staff Member Role: Primary Care Nurse Name: Lucian Cline DO Position: [facility] NAVIGATION OFFICER MD Member Role: Lifetime NAVIGATION OFFICER Physician Address: Address: [address] [place], [place] [phone]- Name: Hanane Callaway RN Position: [facility] Onco RN Member Role: Primary Care Nurse Name: Nila Mustafa RN Position: [facility] ED RN W/OE and Tasks Member Role: Primary Care Nurse Name: Vy DUKE, Donis Position: S Physician - Behavioral Health Member Role: Lifetime Consulting Physician Address: Address: [address] [place] [address]- Care Team Related Persons Name: PHILLIP GOETZ Address: [address] [place] [address] Name: PHILLIP GOETZ Address: [address] [place] [address] Name: SADA KRAMER Address: home [address] [place] [id number]
== END 2023-11-30 10:00 | disposition home or self-care (01) ==
LOC: HO.HBST 09:10
PROVIDERS: PCP Internal Medicine; Visit Provider Counselor Mental Health
DX: F43.10 Post-traumatic stress disorder, unspecified (principal)
CPT/HCPCS: 90837

== ENCOUNTER → 2023-11-30 09:00 | Outpatient (BNVA) | payer OTHER, SELFPAY | PROVIDERS: PCP Internal Medicine; Visit Provider Counselor Mental Health ==

== ENCOUNTER 2023-12-07 07:56 | Outpatient (AMB) | payer OTHER, SELFPAY ==
--- OUTSIDE RECORDS SUMMARY | 2023-12-07 08:07 | XMS_ITS | Continuity of Care Document ---
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 Name Role Phone Skyler Honeycutt Primary Care Physician Encounter [facility] Date(s): 11/02/23 - 12/02/23 [facility] [address] [place] [address] Allergies, Adverse Reactions, Alerts Substance Reaction [...] Dereje rded influenza virus vaccine, inactivated 12/23/19 Derjee rded influenza virus vaccine, inactivated 04/18/19 Give n influenza virus vaccine, inactivated 12/07/18 Dereje rded influenza virus vaccine, inactivated 12/19/17 Dereje rded influenza virus vaccine, inactivated 05/22/17 Give n influenza virus vaccine, inactivated 12/24/14 Dereje rded [id number] bivalent booster vax 12/27/21 Recorded SARS-CoV-2 (COVID-19) [...] 9:21:00 EDT, Route to Pharmacy Electronically, [facility], 165.1, cm, 07/24/23 13:45:00 EDT, Height, [...] Refills, Soft Stop, 09/22/23 17:03:00 EDT, [facility], 165.1, cm, 07/24/23 13:45:00 EDT, Height, 83, kg, 04/24/23 10:30:00 EST, Dry Weight Start Date: 09/22/23 Status: Ordered ergocalciferol 04262 iu oral capsule See Instructions, TAKE 1 [...] Mouth, 2 times a day, # 56 Unknown, 0 Refills, Maintenance, 11/30/23 11:56:00 EDT, [facility], 165.1, cm, 11/09/23 15:24:00 EDT, Height, 83, kg, 04/24/23 10:30:00 EST, Dry Weight Start Date: 11/30/23 Status: Ordered sulfamethoxazole-trimethoprim 400 mg-80 mg oral [...] 10:31:00 EDT, Route to Pharmacy Electronically, [facility] [...] office -delivered by patients own pharmacy-[facility], # 1 each, 11 Refills, Maintenance, 09/04/23 7:32:00 EDT, Injection, Community, [facility] #[id number], 165.1, cm, 07/24/23 13:4... 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 Active Post traumatic stress [...] Care Team Personnel Name: Viviana Hillman Position: [facility] Onco RN Member Role: Primary Care Nurse Name: Nicole Torrez RN Position: [facility] SN RN Member Role: Primary Care Nurse Name: Irwin Soto CRNA Position: [facility] Associate Professional Member Role: Primary Care Nurse Address: Address: [address] [place] [address] [place] [address]- Name: Guerline Piña RN Position: [facility] RN Member Role: Primary Care Nurse Name: Cassandra Clement RN Position: [facility] RN Member Role: Primary Care Nurse Name: Aide Mar RN Position: [facility] ED RN W/OE and Tasks Member Role: Primary Care Nurse Name: Skyler Honeycutt Position: [facility] PCO Associate Professional Member Role: PCP Address: Address: [address] [place] [address] [place] [address]- [place] Name: [place] Pittman [place] Position: [facility] Amb Office Staff Member Role: Primary Care Nurse Name: Mila Veronica [place] Position: [facility] Amb Office Staff Member Role: Primary Care Nurse Name: Lucian Cline DO Position: [facility] COLLISION TECHNICIAN MD Member Role: Lifetime COLLISION TECHNICIAN Physician Address: Address: [address] [place] [address]- [place] Name: Hanane Callaway RN Position: [facility] Onco RN Member Role: Primary Care Nurse Name: Nila Mustafa RN Position: [facility] ED RN W/OE and Tasks Member Role: Primary Care Nurse Name: Donis Mcclellan MD Position: [facility] Physician - Behavioral Health Member Role: Lifetime Consulting Physician Address: Address: [address] [place] [address]- Care Team Related Persons Name: PHILLIP GOETZ Address: [address] [place] [address] Name: PHILLIP GOETZ Address: [address] [place], [place] Name: SADA KRAMER Address: home [address] [place] [address]
--- NOTE | 2023-12-07 09:04 | MHC.OFFVISWM ---
VS Expanded 12/07/23 09:24 Height 5 ft 4 in Weight 181 lb BMI 31.1 Body Fat % 37.8 Body Fat Mass 68.4 Fat Free Mass 112.6 Visceral Fat Rating 13 Body Water % 42.7 Body Water Mass 77.2 Basal Metabolic Rate/Score 1,464 Intake Visit Reasons: TV Follow Up TOS[facility] / Enrique 1ST Allergies bee pollen Allergy (Severe, Verified 12/07/23 09:13) Anaphylaxis mold Allergy (Intermediate, Uncoded 12/07/23 09:13) Anaphylaxis Medication List - Last Reconciled 12/07/23 by Holger Roldan MD ascorbic acid (vitamin C) PO DAILY biotin mcg PO clonazepam mg PO clonidine HCl mg PO DAILY cyanocobalamin (vitamin B-12) (B-12 DOTS) 500 mcg PO DAILY duloxetine 30 mg PO BID ergocalciferol (vitamin D2) 1,250 mcg PO QWEEK gabapentin 100 mg PO TID mecobalamin (vitamin B12) 1,000 mcg sublingual DAILY multivitamin (Daily Multi-Vitamin tablet) 1 tab PO DAILY naltrexone microspheres ER (Vivitrol) 380 mg IM Q4W omeprazole 20 mg PO BID HPI HPI TV Follow Up [facility] / Enrique 1ST: Details: Start time: 8.47am, End time: 9.32am ?I spent 40 minutes speaking with the patient on the phone plus an additional 5 minutes reviewing and updating records for a total of 45 minutes HPI Comments Details: Is doing 2 Celebrate 4:1 shake (1 scoop each in 8oz almond milk), one Celebrate bar and one meal (6 forks of protein and 6 forks of salad or vegetables) Exercise: Gym x4-5/wk doing elliptical PFSH Surgical History Hx of abdominoplasty Hx of rotator cuff surgery Hx of hernia repair Hx of breast reconstruction Hx of hysterectomy Hx of bilateral mastectomy Hx of resection of small bowel Hx of cholecystectomy Hx of lymph node excision Hx of gastric bypass Hx of tonsillectomy Family History Mother Hx of uterus malignancy Father Hx of bladder cancer Maternal Grandmother History of pancreatic cancer Social History Alcohol intake: current Alcohol intake frequency: holidays/special occasions only Alcohol type: other Comment: soniya Telehealth Telehealth Telehealth Platform: Telephone Location of provider rendering services: practice address Location of patient: address on file Patient Identification confirmed using: Name, : Yes Telehealth method: voice only Patient verbally consented to treatment: Yes Patient verbally consented to billing insurance company: Yes Patient informed of any privacy concerns related to visit: Yes Minutes spent on Phone/Video with Pt.: 45 Assessment & Plan Assessment & Plan (1) Obesity: Code(s): E66.9 - Obesity, unspecified Category: Medical Qualifiers: Obesity type: due to excess calories Obesity classification: adult class 2 (BMI 35 - 39.9) Serious obesity comorbidity presence: without serious comorbidity Body mass index: BMI 35.0-35.9 Qualified Code(s): E66.09 - Other obesity due to excess calories; Z68.35 - Body mass index [BMI] 35.0-35.9, adult Plan: 1. To be scheduled for EGD due to history of GERD. The possibility of biopsies was discussed. Patient needs to avoid use of NSAIDs and aspirin for 1 week prior to EGD. Risks of perforation and bleeding was discussed with the patient. This will be an outpatient procedure with IV sedation. 2. Continue same meal plan of [employer] 4:1 shake (1 scoop each in 8oz almond milk), one Celebrate bar and one meal (6 forks of protein and 6 forks of salad or vegetables) 3. Send me daily pictures of your meal plate after you measure it and before you consume it 4. Continue the Elliptical machine but create an exercise plan through the aby and send me a screenshot 5. Send me weight measurements weekly on Fridays 6. Further recommendations for a possible revision after the EGD and UGI have been performed Medications: New mecobalamin (vitamin B12) place tablet under tongue and allow to dissolve for at least30 secs before swallowing 1,000 mcg sublingual DAILY 90 tabs 0RF E53.8 - Deficiency of other specified B group vitamins
[2023-12-07 09:24] VITALS: BMI 31.1
== END 2023-12-07 09:33 | disposition home or self-care (01) ==
LOC: HO.HBS 07:56
PROVIDERS: PCP Physician Assistant; Visit Provider Surgery
DX: E66.09 Other obesity due to excess calories (principal); Z68.31 Body mass index [BMI] 31.0-31.9, adult
CPT/HCPCS: 99443

== ENCOUNTER → 2023-12-07 07:56 | Outpatient (BNVA) | payer OTHER, SELFPAY | PROVIDERS: PCP Physician Assistant; Visit Provider Surgery ==

== ENCOUNTER → 2023-12-14 10:09 | Outpatient (BNVA) | payer OTHER, SELFPAY | PROVIDERS: PCP Physician Assistant; Visit Provider Counselor Mental Health ==

== ENCOUNTER → 2023-12-14 10:09 | Outpatient (AMB) | payer OTHER, SELFPAY ==
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
--- OUTSIDE RECORDS SUMMARY | 2023-12-14 10:11 | XMS_ITS | Continuity of Care Document ---
Author Organization [facility] [address] Address [address] [place] [address]- Care Team Providers Care Government Affairs Specialist Name Role Phone Skyler Honeycutt Primary Care Physician Encounter [facility] Date(s): 11/13/23 - 12/13/23 [facility] [address] [place], [place] [id number] Allergies, Adverse Reactions, Alerts Substance Reaction [...] influenza virus vaccine, inactivated 12/24/14 Dereje rded [id number] bivalent booster vax 12/27/21 Recorded SARS-CoV-2 (COVID-19) mRNA-1273 vaccine 06/22/21 R ecorded SARS-CoV-2 (COVID-19) mRNA BNT-162b2 vac 01/02/21 Recorded SARS-CoV-2 (COVID-19) mRNA BNT-162b2 vac 05/11/20 Recorded SARS-CoV-2 (COVID-19) mRNA BNT-162b2 vac 04/20/20 Recorded hepatitis B adult vaccine 05/10/15 Given hepatitis B adult vaccine 03/19/15 Given Medications Acidophilus oral tablet 2 tablet, By Mouth, Daily, # 60 tablet, 5 Refills, Maintenance, 12/04/23 14:48:00 EDT, Tablet, [facility], Partial fill upon patient request if the prescription is for a schedule II opioid drug., 165.1, cm, 11/09/23 15:24:00 EDT, Height, 8... Start Date: 12/04/23 Status: Ordered B-12 500 mcg sublingual tablet [...] Weight Start Date: 09/22/23 Status: Ordered ergocalciferol 27920 iu oral capsule See Instructions, TAKE 1 CAPSULE BY MOUTH EVERY WEEK Further refills per PCP, # 4 capsule, Refills 1, Tot. Refills 1, Maintenance, 12/04/23 14:47:00 EDT, Instructions Replace Required Details, Route to Pharmacy Electronically, [facility]... Start Date: 12/04/23 Status: Ordered gabapentin 100 mg oral capsule [...] 0 Refills, Maintenance, 11/30/23 11:56:00 EDT, [facility], 165.1, cm, 11/09/23 15:24:00 EDT, Height, 83, [...] by patients own pharmacy-[facility], # 1 each, 11 Refills, Maintenance, 09/04/23 7:32:00 EDT, Injection, Community, [facility] #[id number], 165.1, cm, 07/24/23 13:4... Start Date: 09/04/23 [...] Opioid dependence on agonist therapy Confirmed Active *[phone] Peer Counselor Brooke Aguillon Confirmed Active Post traumatic stress [...] Care Team Personnel Name: Viviana Hillman Position: [facility] Onco RN Member Role: Primary Care Nurse Name: Nicole Torrez RN Position: [facility] SN RN Member Role: Primary Care Nurse Name: Irwin Soto CRNA Position: [facility] Associate Professional Member Role: Primary Care Nurse Address: Address: [address] [place] [address] Anesthesia Services [place], [place] [id number] Name: Guerline Piña RN Position: S RN Member Role: Primary Care Nurse Name: Cassandra Clement RN Position: S RN Member Role: Primary Care Nurse Name: Aide Mar RN Position: [facility] ED RN W/OE and Tasks Member Role: Primary Care Nurse Name: Skyler Honeycutt Position: [facility] PCO Associate Professional Member Role: PCP Address: Address: [address] [place] [address] [place] [address]- [place] Name: Jessi Pittman [place] Position: [facility] Amb Office Staff Member Role: Primary Care Nurse Name: Mila Veronica [place] Position: [facility] Amb Office Staff Member Role: Primary Care Nurse Name: Lucian Cline DO Position: [facility] NUTRITION INSTRUCTOR MD Member Role: [employer] NUTRITION INSTRUCTOR Physician Address: Address: [address] [place] [address]- [place] Name: Hanane Callaway RN Position: [facility] Onco RN Member Role: Primary Care Nurse Name: Nila Mustafa RN Position: [facility] ED RN W/OE and Tasks Member Role: Primary Care Nurse Name: Donis Mcclellan MD Position: [facility] Physician - Behavioral Health Member Role: [employer] Consulting Physician Address: Address: [address] [place] [id number]- Care Team Related Persons Name: PHILLIP GOETZ Address: home [address], [place] Name: PHILLIP GOETZ Address: home [address], [place] Name: SADA KRAMER Address: home [address] [place] [address]
--- OUTSIDE RECORDS SUMMARY | 2023-12-14 10:11 | XMS_ITS | Continuity of Care Document ---
Author Organization [facility] Primary Car e Keene Address [address] [place] [address]- Care Team Providers Care Credit Administration Officer Name Role Phone Skyler Honeycutt Primary Care Physician [phone] Encounter [facility] Date(s): 11/13/23 - 12/13/23 [facility] Primary Care [address] [place], [place] [address] Allergies, Adverse Reactions, Alerts Substance Reaction Severity [...] influenza virus vaccine, inactivated 12/24/14 Dereje rded [id number] bivalent booster vax 12/27/21 Recorded SARS-CoV-2 (COVID-19) [...] Weight Start Date: 09/22/23 Status: Ordered ergocalciferol 14817 iu oral capsule See Instructions, TAKE 1 [...] our office -delivered by patients own pharmacy-[facility] Neal, # 1 each, 11 Refills, Maintenance, 09/04/23 7:32:00 EDT, Injection, Community, [facility] Rx #[id number], 165.1, cm, 07/24/23 13:4... Start Date: 09/04/23 [...] Opioid dependence on agonist therapy Confirmed Active *[id number] Maintenance Tech Brooke Aguillon Confirmed Active Post traumatic stress [...] Personnel Name: Viviana Hillman Position: [facility] Onco RN Member Role: Primary Care Nurse Name: Nicole Torrez RN Position: [facility] SN RN Member Role: Primary Care Nurse Name: Irwin Soto CRNA Position: [facility] Associate Professional Member Role: Primary Care Nurse Address: Address: [address] [place] [address] Anesthesia Services [place], [place] [address] Name: Guerline Piña RN Position: S RN Member Role: Primary Care Nurse Name: Cassandra Clement RN Position: [facility] RN Member Role: Primary Care Nurse Name: Aide Mar RN Position: [facility] ED RN W/OE and Tasks Member Role: Primary Care Nurse Name: Skyler Honeycutt Position: [facility] PCO Associate Professional Member Role: PCP Address: Address: [address] [place] [address] [place] [address]- [place] Name: Jessi Pittman [place] Position: [facility] Amb Office Staff Member Role: Primary Care Nurse Name: Mila Veronica [place] Position: [facility] Amb Office Staff Member Role: Primary Care Nurse Name: Lucian Cline DO Position: [facility] ROD PULLER AND COILER MD Member Role: Lifetime ROD PULLER AND COILER Physician Address: Address: [address] [place] [address]- [place] Name: Hanane Callaway RN Position: [facility] Onco RN Member Role: Primary Care Nurse Name: Nila Mustafa RN Position: [facility] ED RN W/OE and Tasks Member Role: Primary Care Nurse Name: Donis Mcclellan MD Position: [facility] Physician - Behavioral Health Member Role: Lifetime Consulting Physician Address: Address: [address] [place] [address]- Care Team Related Persons Name: PHILLIP GOETZ Address: home [address] [place], [place] Name: PHILLIP GOETZ Address: home [address] [place], [place] Name: SADA KRAMER Address: home [address] [place] [address]
--- OUTSIDE RECORDS SUMMARY | 2023-12-14 10:12 | XMS_ITS | Continuity of Care Document ---
Author Organization [facility] Primary Car e [place] Address [address] [place] [address]- Care Team Providers Care Manufacturing Engineer Machining Name Role Phone Skyler Honeycutt Primary Care Physician Encounter [facility] Date(s): 11/10/23 - 12/10/23 [facility] Care [address] [place], [place] [address] Allergies, Adverse Reactions, Alerts Substance Reaction Severity Status Bee Stings severe swelling Active Mold swelling Active NSAIDs History of stomach ulcers 04-JAN-2016 21 :52:31<$> Active Immunizations Given and Recorded Vaccine Date [...] influenza virus vaccine, inactivated 12/24/14 Dereje rded [id number] bivalent booster vax 12/27/21 Recorded SARS-CoV-2 (COVID-19) [...] Weight Start Date: 09/22/23 Status: Ordered ergocalciferol 04083 iu oral capsule See Instructions, TAKE 1 [...] in our office -delivered by patients own pharmacy-[facility] Neal, # 1 each, 11 Refills, Maintenance, 09/04/23 7:32:00 EDT, Injection, Community, A [facility] Rx #[id number], 165.1, cm, 07/24/23 13:4... 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 Active Impulse control disorder Confirmed Active Mood disorder Confirmed Active Obese class I Confirmed Active Obsessive compulsive disorder Confirmed Active Opioid dependence on agonist therapy Confirmed Active *[id number] Door Patcher Brooke Aguillon Confirmed Active Post traumatic stress [...] Care Team Personnel Name: Viviana Hillman Position: [facility] Onco RN Member Role: Primary Care Nurse Name: Nicole Torrez RN Position: [facility] SN RN Member Role: Primary Care Nurse Name: Irwin Soto CRNA Position: [facility] Associate Professional Member Role: Primary Care Nurse Address: Address: [address] [place] [address] Anesthesia Services [place], [place] [address] Name: Guerline Piña RN Position: [facility] RN Member Role: Primary Care Nurse Name: Cassandra Clement RN Position: [facility] RN Member Role: Primary Care Nurse Name: Aide Mar RN Position: [facility] ED RN W/OE and Tasks Member Role: Primary Care Nurse Name: Skyler Honeycutt Position: [facility] PCO Associate Professional Member Role: PCP Address: Address: [address] [place] [address] [place] [address]- [place] Name: Jessi Pittman [place] Position: [facility] Amb Office Staff Member Role: Primary Care Nurse Name: Mila Veronica [place] Position: [facility] Amb Office Staff Member Role: Primary Care Nurse Name: Lucian Cline DO Position: [facility] PRECISION MACHINING INSTRUCTOR MD Member Role: Lifetime PRECISION MACHINING INSTRUCTOR Physician Address: Address: [address] [place] [address]- [place] Name: Hanane Callaway RN Position: [facility] Onco RN Member Role: Primary Care Nurse Name: Nila Mustafa RN Position: [facility] ED RN W/OE and Tasks Member Role: Primary Care Nurse Name: Donis Mcclellan MD Position: [facility] Physician - Behavioral Health Member Role: Lifetime Consulting Physician Address: Address: [address] [place] [address]- Care Team Related Persons Name: PHILLIP GOETZ Address: [address] [place] [address] Name: PHILLIP GOETZ Address: [address] [place], [place] Name: SADA KRAMER Address: home [address] [place] [address]
--- OUTSIDE RECORDS SUMMARY | 2023-12-14 10:12 | XMS_ITS | Continuity of Care Document ---
Author Organization [facility] Primary Car e [address] Address [address] [place] [address]- Care Team Providers Care Fire Truck Driver Name Role Phone Skyler Honeycutt Primary Care Physician [phone] Encounter [facility] Date(s): 11/13/23 - 12/13/23 [facility] Primary Care [address] [place], [place] [address] Allergies, Adverse Reactions, Alerts Substance Reaction [...] influenza virus vaccine, inactivated 12/24/14 Dereje rded [id number] bivalent booster vax 12/27/21 Recorded SARS-CoV-2 (COVID-19) [...] Weight Start Date: 09/22/23 Status: Ordered ergocalciferol 97355 iu oral capsule See Instructions, TAKE 1 [...] -delivered by patients own pharmacy-[facility] Neal, # 1 each, 11 Refills, Maintenance, 09/04/23 7:32:00 EDT, Injection, Community, [facility] #[id number], 165.1, cm, 07/24/23 13:4... Start Date: 09/04/23 [...] Opioid dependence on agonist therapy Confirmed Active *[id number] Hris Administrator Brooke Aguillon Confirmed Active Post traumatic stress [...] Care Team Personnel Name: Viviana Hillman Position: [facility] Onco RN Member Role: Primary Care Nurse Name: Nicole Torrez RN Position: [facility] SN RN Member Role: Primary Care Nurse Name: Irwin Soto CRNA Position: [facility] Associate Professional Member Role: Primary Care Nurse Address: Address: [address] [place] [address] Anesthesia Services [place], [place] [address] Name: Guerline Piña RN Position: S RN Member Role: Primary Care Nurse Name: Cassandra Clement RN Position: [facility] RN Member Role: Primary Care Nurse Name: Aide Mar RN Position: [facility] ED RN W/OE and Tasks Member Role: Primary Care Nurse Name: Skyler Honeycutt Position: [facility] PCO Associate Professional Member Role: PCP Address: Address: [address] [place] [address] [place] [address]- [place] Name: Jessi Pittman [place] Position: [facility] Amb Office Staff Member Role: Primary Care Nurse Name: Mila Veronica [place] Position: [facility] Amb Office Staff Member Role: Primary Care Nurse Name: Lucian Cline DO Position: [facility] MUSIC REHABILITATION THERAPIST MD Member Role: Lifetime MUSIC REHABILITATION THERAPIST Physician Address: Address: [address] [place] [address]- [place] Name: Hanane Callaway RN Position: [facility] Onco RN Member Role: Primary Care Nurse Name: Nila Mustafa RN Position: [facility] ED RN W/OE and Tasks Member Role: Primary Care Nurse Name: Donis Mcclellan MD Position: [facility] Physician - Behavioral Health Member Role: Lifetime Consulting Physician Address: Address: [address] [place] [address]- Care Team Related Persons Name: PHILLIP GOETZ Address: [address] [place], [place] Name: PHILLIP GOETZ Address: [address] [place], [place] Name: SADA KRAMER Address: home [address] [place] [address]
--- OUTSIDE RECORDS SUMMARY | 2023-12-14 10:12 | XMS_ITS | Continuity of Care Document ---
Author Organization [facility] Primary Car e Keene Address [address] [place] [address]- Care Team Providers Care Medicaid Billing Clerk Name Role Phone Skyler Honeycutt Primary Care Physician Encounter [facility] Date(s): 11/13/23 - 12/13/23 [facility] Primary Care [address] [place], [place] [address] Allergies, Adverse Reactions, Alerts Substance [...] influenza virus vaccine, inactivated 12/24/14 Dereje rded [id number] bivalent booster vax 12/27/21 Recorded SARS-CoV-2 (COVID-19) [...] Weight Start Date: 09/22/23 Status: Ordered ergocalciferol 80992 iu oral capsule See Instructions, TAKE 1 [...] office -delivered by patients own pharmacy-[facility] Neal, # 1 each, 11 Refills, Maintenance, 09/04/23 7:32:00 EDT, Injection, Community, [facility] #[id number], 165.1, cm, 07/24/23 13:4... 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 Management Marketing Brooke Aguillon Confirmed Active Post traumatic stress [...] Care Team Personnel Name: Viviana Hillman Position: [facility] Onco RN Member Role: Primary Care Nurse Name: Nicole Torrez RN Position: [facility] SN RN Member Role: Primary Care Nurse Name: Irwin Soto CRNA Position: [facility] Associate Professional Member Role: Primary Care Nurse Address: Address: [address] [place] [address] Anesthesia Services [place], [place] [address] Name: Guerline Piña RN Position: S RN Member Role: Primary Care Nurse Name: Cassandra Clement RN Position: [facility] RN Member Role: Primary Care Nurse Name: Aide Mar RN Position: [facility] ED RN W/OE and Tasks Member Role: Primary Care Nurse Name: Skyler Honeycutt Position: [facility] PCO Associate Professional Member Role: PCP Address: Address: [address] [place] [address] [place] [address]- [place] Name: Jessi Pittman [place] Position: [facility] Amb Office Staff Member Role: Primary Care Nurse Name: Mila Veronica MA Position: [facility] Amb Office Staff Member Role: Primary Care Nurse Name: Lucian Cline DO Position: [facility] ACCOUNT TECHNICIAN MD Member Role: Lifetime ACCOUNT TECHNICIAN Physician Address: Address: [address] [place] [address]- [place] Name: Hanane Callaway RN Position: [facility] Onco RN Member Role: Primary Care Nurse Name: Nila Mustafa RN Position: [facility] ED RN W/OE and Tasks Member Role: Primary Care Nurse Name: Donis Mcclellan MD Position: [facility] Physician - Behavioral Health Member Role: Lifetime Consulting Physician Address: Address: [address] [place] [address]- Care Team Related Persons Name: PHILLIP GOETZ Address: [address] [place], [place] Name: PHILLIP GOETZ Address: [address] [place], [place] Name: SADA KRAMER Address: home [address] [place] [address]
--- OUTSIDE RECORDS SUMMARY | 2023-12-14 10:12 | XMS_ITS | Continuity of Care Document ---
Author Organization [facility] Primary Car e [address] Address [address] [place] [address]- Care Team Providers Care Primary Special Education Teacher Name Role Phone Skyler Honeycutt Primary Care Physician [phone] Encounter [facility] Date(s): 11/13/23 - 12/13/23 [facility] Primary Care [address] [place], [place] [address] Allergies, Adverse Reactions, Alerts [...] influenza virus vaccine, inactivated 12/24/14 Dereje rded [id number] bivalent booster vax 12/27/21 Recorded SARS-CoV-2 (COVID-19) [...] Weight Start Date: 09/22/23 Status: Ordered ergocalciferol 35617 iu oral capsule See Instructions, TAKE 1 [...] in our office -delivered by patients own pharmacy-[facility] Neal, # 1 each, 11 Refills, Maintenance, 09/04/23 7:32:00 EDT, Injection, Community, [facility] #[id number], 165.1, cm, 07/24/23 13:4... Start Date: 09/04/23 [...] Opioid dependence on agonist therapy Confirmed Active *[id number] Makeup Instructor Brooke Aguillon Confirmed Active Post traumatic stress [...] Care Team Personnel Name: Viviana Hillman Position: [facility] Onco RN Member Role: Primary Care Nurse Name: Nicole Torrez RN Position: [facility] SN RN Member Role: Primary Care Nurse Name: Irwin Soto CRNA Position: [facility] Associate Professional Member Role: Primary Care Nurse Address: Address: [address] [place] [address] Anesthesia Services [place], [place] [address] Name: Guerline Piña RN Position: S RN Member Role: Primary Care Nurse Name: Cassandra Clement RN Position: S RN Member Role: Primary Care Nurse Name: Aide Mar RN Position: [facility] ED RN W/OE and Tasks Member Role: Primary Care Nurse Name: Skyler Honeycutt Position: [facility] PCO Associate Professional Member Role: PCP Address: Address: [address] [place] [address] [place] [address]- [place] Name: Jessi Pittman [place] Position: [facility] Amb Office Staff Member Role: Primary Care Nurse Name: Mila Veronica [place] Position: [facility] Amb Office Staff Member Role: Primary Care Nurse Name: Lucian Cline DO Position: [facility] MERCHANDISE TEAM MANAGER MD Member Role: Lifetime MERCHANDISE TEAM MANAGER Physician Address: Address: [address] [place] [address]- [place] Name: Hanane Callaway RN Position: [facility] Onco RN Member Role: Primary Care Nurse Name: Nila Mustafa RN Position: [facility] ED RN W/OE and Tasks Member Role: Primary Care Nurse Name: Donis Mcclellan MD Position: [facility] Physician - Behavioral Health Member Role: Lifetime Consulting Physician Address: Address: [address] [place] [address]- Care Team Related Persons Name: PHILLIP GOETZ Address: [address] [place], [place] Name: PHILLIP GOETZ Address: [address] [place], [place] Name: SADA KRAMER Address: [address] [place] [address]
--- OUTSIDE RECORDS SUMMARY | 2023-12-14 10:13 | XMS_ITS | Continuity of Care Document ---
Author Organization [facility] Primary Car e Keene Address [address] [place] [address]- Care Team Providers Care Registered Vascular Technologist (Rvt) Name Role Phone Skyler Honeycutt Primary Care Physician [phone] [facility] Date(s): 11/09/23 - 12/09/23 [facility] Primary Care [address] [place], [place] [address] Allergies, Adverse Reactions, Alerts [...] influenza virus vaccine, inactivated 12/24/14 Dereje rded [id number] bivalent booster vax 12/27/21 Recorded SARS-CoV-2 (COVID-19) [...] Weight Start Date: 09/22/23 Status: Ordered ergocalciferol 57376 iu oral capsule See Instructions, TAKE 1 [...] office -delivered by patients own pharmacy-[facility] Neal, # 1 each, 11 Refills, Maintenance, 09/04/23 7:32:00 EDT, Injection, Community, [facility] Rx #[id number], 165.1, cm, 07/24/23 13:4... Start Date: 09/04/23 [...] Opioid dependence on agonist therapy Confirmed Active *[id number] Meteorological Aide Brooke Aguillon Confirmed Active Post traumatic stress [...] Care Team Personnel Name: Viviana Hillman Position: [facility] Onco RN Member Role: Primary Care Nurse Name: Nicole Torrez RN Position: [facility] SN RN Member Role: Primary Care Nurse Name: Irwin Soto CRNA Position: [facility] Associate Professional Member Role: Primary Care Nurse Address: Address: [address] [place] [address] Anesthesia Services [place], [place] [address] Name: Guerline Piña RN Position: S RN Member Role: Primary Care Nurse Name: Cassandra Clement RN Position: S RN Member Role: Primary Care Nurse Name: Aide Mar RN Position: [facility] ED RN W/OE and Tasks Member Role: Primary Care Nurse Name: Skyler Honeycutt Position: [facility] PCO Associate Professional Member Role: PCP Address: Address: [address] [place] [address] [place] [address]- [place] Name: Jessi Pittman [place] Position: [facility] Amb Office Staff Member Role: Primary Care Nurse Name: Mila Veronica MA Position: [facility] Amb Office Staff Member Role: Primary Care Nurse Name: Lucian Cline DO Position: [facility] F[address] STENOGRAPHER MD Member Role: Lifetime FREELANCE [address] STENOGRAPHER Physician Address: Address: [address] [place] [address]- [place] Name: Hanane Callaway RN Position: [facility] Onco RN Member Role: Primary Care Nurse Name: Nila Mustafa RN Position: [facility] ED RN W/OE and Tasks Member Role: Primary Care Nurse Name: Donis Mcclellan MD Position: [facility] Physician - Behavioral Health Member Role: Lifetime Consulting Physician Address: Address: [address] [place] [address]- Care Team Related Persons Name: PHILLIP GOETZ Address: [address] [place], [place] Name: PHILLIP GOETZ Address: [address] [place], [place] Name: SADA KRAMER Address: [address] [place] [address]
--- OUTSIDE RECORDS SUMMARY | 2023-12-14 10:13 | XMS_ITS | Continuity of Care Document ---
Author Organization [facility] Primary Car e Keene Address [address] [place] [address]- Care Team Providers Care Shoer Name Role Phone Skyler Honeycutt Primary Care Physician Encounter [facility] Date(s): 11/13/23 - 12/13/23 [facility] Primary Care [address] [place], [place] [address] Allergies, Adverse Reactions, Alerts Substance Reaction Severity [...] influenza virus vaccine, inactivated 12/24/14 Dereje rded [id number] bivalent booster vax 12/27/21 Recorded SARS-CoV-2 (COVID-19) [...] 5 Refills, Maintenance, 11/18/23 6:52:00 EDT, Tablet, [facility], Partial fill upon patient request [...] Weight Start Date: 09/22/23 Status: Ordered ergocalciferol 40794 iu oral capsule See Instructions, TAKE 1 [...] office -delivered by patients own pharmacy-[facility] Neal, # 1 each, 11 Refills, Maintenance, 09/04/23 7:32:00 EDT, Injection, Community, [facility] #[id number], 165.1, cm, 07/24/23 13:4... Start Date: 09/04/23 [...] Opioid dependence on agonist therapy Confirmed Active *[id number] Packer Operator Automatic Brooke Aguillon Confirmed Active Post [...] Personnel Name: Viviana Hillman Position: [facility] Onco RN Member Role: Primary Care Nurse Name: Nicole Torrez RN Position: [facility] SN RN Member Role: Primary Care Nurse Name: Irwin Soto CRNA Position: [facility] Associate Professional Member Role: Primary Care Nurse Address: Address: [address] [place] [address] Anesthesia Services [place], [place] [address] Name: Guerline Piña RN Position: S RN Member Role: Primary Care Nurse Name: Cassnadra Clement RN Position: [facility] RN Member Role: Primary Care Nurse Name: Aide Mar RN Position: [facility] ED RN W/OE and Tasks Member Role: Primary Care Nurse Name: Skyler Honeycutt Position: [facility] PCO Associate Professional Member Role: PCP Address: Address: [address] [place] [address] [place] [address]- [place] Name: Jessi Pittman [place] Position: [facility] Amb Office Staff Member Role: Primary Care Nurse Name: Mila Veronica MA Position: [facility] Amb Office Staff Member Role: Primary Care Nurse Name: Lucian Cline DO Position: [facility] ROLLER SKATE ASSEMBLER MD Member Role: Lifetime ROLLER SKATE ASSEMBLER Physician Address: Address: [address] [place] [address]- [place] Name: Hanane Callaway RN Position: [facility] Onco RN Member Role: Primary Care Nurse Name: Nila Mustafa RN Position: [facility] ED RN W/OE and Tasks Member Role: Primary Care Nurse Name: Donis Mcclellan MD Position: [facility] Physician - Behavioral Health Member Role: Lifetime Consulting Physician Address: Address: [address] [place] [address]- Care Team Related Persons Name: PHILLIP GOETZ Address: [address] [place], [place] Name: PHILLIP GOETZ Address: [address] [place], [place] Name: SADA KRAMER Address: [address] [place] [address]
--- OUTSIDE RECORDS SUMMARY | 2023-12-14 10:14 | XMS_ITS | Continuity of Care Document ---
Author Organization [facility] Primary Car e [place] Address [address] [place] [address]- Care Team Providers Care Adjunct Professor Of Law Name Role Phone Skyler Honeycutt Primary Care Physician Encounter [facility] Date(s): 11/13/23 - 12/13/23 [facility] Primary Care [address] [place], [place] [address] Allergies, Adverse Reactions, Alerts [...] influenza virus vaccine, inactivated 12/24/14 Dereje rded [id number] bivalent booster vax 12/27/21 Recorded SARS-CoV-2 (COVID-19) [...] Weight Start Date: 09/22/23 Status: Ordered ergocalciferol 59899 iu oral capsule See Instructions, TAKE 1 [...] our office -delivered by patients own pharmacy-formerly [facility], # 1 each, 11 Refills, Maintenance, 09/04/23 7:32:00 EDT, Injection, [facility], [id number], 165.1, cm, 07/24/23 13:4... 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, ER/CO positive, Her-2/sia negative, 2012 Confirmed Active Impulse control disorder Confirmed Active Mood disorder Confirmed Active Obese class I Confirmed Active Obsessive compulsive disorder Confirmed Active Opioid dependence on agonist therapy Confirmed Active *[id number] Cornice Upholsterer Brooke Aguillon Confirmed Active Post traumatic stress [...] Care Team Personnel Name: Viviana Hillman Position: [facility] Onco RN Member Role: Primary Care Nurse Name: Nicole Torrez RN Position: [facility] SN RN Member Role: Primary Care Nurse Name: Irwin Soto CRNA Position: [facility] Associate Professional Member Role: Primary Care Nurse Address: Address: [address] [place] [address] Anesthesia Services [place], [place] [address] Name: Guerline Piña RN Position: S RN Member Role: Primary Care Nurse Name: Cassandra Clement RN Position: S RN Member Role: Primary Care Nurse Name: Aide Mar RN Position: [facility] ED RN W/OE and Tasks Member Role: Primary Care Nurse Name: Skyler Honeycutt Position: [facility] PCO Associate Professional Member Role: PCP Address: Address: [address] [place] [address] [place] [address]- [place] Name: Jessi Pittman [place] Position: [facility] Amb Office Staff Member Role: Primary Care Nurse Name: Mila Veronica [place] Position: [facility] Amb Office Staff Member Role: Primary Care Nurse Name: Lucian Cline DO Position: [facility] BATH STEWARD MD Member Role: Lifetime BATH STEWARD Physician Address: Address: [address] [place] [address]- [place] Name: Hanane Callaway RN Position: [facility] Onco RN Member Role: Primary Care Nurse Name: Nila Mustafa RN Position: [facility] ED RN W/OE and Tasks Member Role: Primary Care Nurse Name: Donis Mcclellan MD Position: [facility] Physician - Behavioral Health Member Role: Lifetime Consulting Physician Address: Address: [address] [place] [address]- Care Team Related Persons Name: PHILLIP GOETZ Address: home [address] [place], [place] Name: PHILLIP GOETZ Address: home [address] [place], [place] Name: SADA KRAMER Address: home [address] [place] [address]
== END ==
LOC: HO.HBST 10:09
PROVIDERS: PCP Physician Assistant; Visit Provider Counselor Mental Health
DX: F43.10 Post-traumatic stress disorder, unspecified (principal); F42.2 Mixed obsessional thoughts and acts; F31.9 Bipolar disorder, unspecified
CPT/HCPCS: 90837

== ENCOUNTER 2023-12-31 10:10 | Day surgery (SDC) | payer OTHER, SELFPAY ==
[2023-12-22 10:49] VITALS: BMI 31.1
--- NOTE | 2023-12-29 14:05 | P.CONAN_ITS ---
Documented by User: Kelsey Yanes NP 12/29/23 14:06 HPI - Anesthesia Eval Consult details Narrative: 48yo F for Upper Endoscopy PMFSH Active Problems Active Problems: All Active Problems Vitamin B12 deficiency (Acute) Abnormal EKG (Acute) Obesity (Acute) Manic depression (Acute) OCD (obsessive compulsive disorder) (Acute) PTSD (post-traumatic stress disorder) (Acute) HX: breast cancer (Acute) Family History Family History Mother Hx of uterus malignancy Father Hx of bladder cancer Maternal Grandmother History of pancreatic cancer Surgical History Surgical History H/O abdominal surgery Hx of abdominoplasty Hx of rotator cuff surgery Hx of hernia repair Hx of breast reconstruction Hx of hysterectomy Hx of bilateral mastectomy Hx of resection of small bowel Hx of cholecystectomy Hx of lymph node excision Hx of gastric bypass Hx of tonsillectomy Social History Social History Are you a primary patient care nursing assistant to a significant other at home: No Do you presently have visiting nurse or other home services: No Alcohol intake: current Alcohol intake frequency: holidays/special occasions only Alcohol type: other Comment: soniya Patient Tobacco Use Status: Never used Tobacco Use of substances other than those prescribed or required for medical reasons: No Have you been hit, kicked, punched, or otherwise hurt by someone within the past year? If so, by whom?: No Are you DNR?: No Advance Directives: No Advance Directives Information Provided: Yes Recently lost weight without trying: No How much weight loss: Not applicable Eating poorly because of decreased appetite: No Nutrition screen score: 0 Nutrition Risks: No Nutritional Risk Patient : No : No Poor oral hygiene: Yes (Front lower cracked. upper Bridges. Crowns. Partial bottom.) Meds Allergies Allergy/AdvReac Type Severity Reaction Status Date / Time bee pollen Allergy Severe Anaphylaxis Verified 12/31/23 10:56 mold Allergy Intermediate Congested Uncoded 12/31/23 10:56 Home Medications ?Medication ?Instructions ?Recorded ?Confirmed ?Last Taken ?Type ascorbic acid (vitamin C) 1,000 mg 1,000 mg PO DAILY 10/07/23 12/31/23 Unknown History tablet biotin 5,000 mcg chewable tablet 10,000 mcg PO DAILY 10/07/23 12/31/23 Unknown History clonazepam 0.5 mg tablet 0.5 mg PO DAILY PRN Anxiety 10/07/23 12/31/23 Unknown History clonidine HCl 0.1 mg tablet 0.1 mg PO DAILY 10/07/23 12/31/23 Unknown History duloxetine 30 mg capsule,delayed 30 mg PO BID 10/07/23 12/31/23 Unknown History release ergocalciferol (vitamin D2) 1,250 1,250 mcg PO QWEEK 10/07/23 12/31/23 Unknown History mcg (50,000 unit) capsule gabapentin 100 mg capsule 100 mg PO TID 10/07/23 12/31/23 Unknown History multivitamin (Daily Multi-Vitamin 1 tab PO DAILY 10/07/23 12/31/23 Unknown History tablet) naltrexone microspheres 380 mg 380 mg IM Q4W 10/07/23 12/31/23 Unknown History intramuscular suspension,extended release (Vivitrol) omeprazole 20 mg capsule,delayed 20 mg PO BID 10/07/23 12/31/23 Unknown History release Exam Height,Weight and Vital Signs: Height 5 ft 4 in Weight 82.1 kg Narrative Narrative: EKG 10/2023 Vent. Rate : 064 BPM Atrial Rate : 064 BPM P-R Int : 160 ms QRS Dur : 096 ms QT Int : 410 ms P-R-T Axes : 054 027 043 degrees QTc Int : 422 ms Sinus rhythm with sinus arrhythmia with occasional Premature ventricular complexes Otherwise normal ECG No previous ECGs available ECHO 10/2023 Conclusions: - 1. Normal LV ejection fraction 55-60% with normal filling pattern 2. Normal cardiac valvular Doppler 3. Normal RV systolic pressure 4. Upper limits of normal ascending aortic size Assessment and Plan Assessment Anesthesia Assessment: Chart Reviewed Documented by User: Eden Coyle MD 12/31/23 11:43 PMFSH Family History Family History Mother Hx of uterus malignancy Father Hx of bladder cancer Maternal Grandmother History of pancreatic cancer Family history of problems with anesthesia: No Surgical History Surgical History H/O abdominal surgery Hx of abdominoplasty Hx of rotator cuff surgery Hx of hernia repair Hx of breast reconstruction Hx of hysterectomy Hx of bilateral mastectomy Hx of resection of small bowel Hx of cholecystectomy Hx of lymph node excision Hx of gastric bypass Hx of tonsillectomy History of Problems with Anesthesia: No Social History Social History Are you a primary patient care nursing assistant to a significant other at home: No Do you presently have visiting nurse or other home services: No Alcohol intake: current Alcohol intake frequency: holidays/special occasions only Alcohol type: other Comment: soniya Patient Tobacco Use Status: Never used Tobacco Use of substances other than those prescribed or required for medical reasons: No Have you been hit, kicked, punched, or otherwise hurt by someone within the past year? If so, by whom?: No Are you DNR?: No Advance Directives: No Advance Directives Information Provided: Yes Recently lost weight without trying: No How much weight loss: Not applicable Eating poorly because of decreased appetite: No Nutrition screen score: 0 Nutrition Risks: No Nutritional Risk Patient : No : No Poor oral hygiene: Yes (Front lower cracked. upper Bridges. Crowns. Partial bottom.) Meds Allergies Allergy/AdvReac Type Severity Reaction Status Date / Time bee pollen Allergy Severe Anaphylaxis Verified 12/31/23 10:56 mold Allergy Intermediate Congested Uncoded 12/31/23 10:56 Home Medications ?Medication ?Instructions ?Recorded ?Confirmed ?Last Taken ?Type ascorbic acid (vitamin C) 1,000 mg 1,000 mg PO DAILY 10/07/23 12/31/23 Unknown History tablet biotin 5,000 mcg chewable tablet 10,000 mcg PO DAILY 10/07/23 12/31/23 Unknown History clonazepam 0.5 mg tablet 0.5 mg PO DAILY PRN Anxiety 10/07/23 12/31/23 Unknown History clonidine HCl 0.1 mg tablet 0.1 mg PO DAILY 10/07/23 12/31/23 Unknown History duloxetine 30 mg capsule,delayed 30 mg PO BID 10/07/23 12/31/23 Unknown History release ergocalciferol (vitamin D2) 1,250 1,250 mcg PO QWEEK 10/07/23 12/31/23 Unknown History mcg (50,000 unit) capsule gabapentin 100 mg capsule 100 mg PO TID 10/07/23 12/31/23 Unknown History multivitamin (Daily Multi-Vitamin 1 tab PO DAILY 10/07/23 12/31/23 Unknown History tablet) naltrexone microspheres 380 mg 380 mg IM Q4W 10/07/23 12/31/23 Unknown History intramuscular suspension,extended release (Vivitrol) omeprazole 20 mg capsule,delayed 20 mg PO BID 10/07/23 12/31/23 Unknown History release Exam Airway Mallampati Class: II TM Dist: >3cm Neck ROM: Full Heart: rrr Lungs: cta Assessment and Plan Assessment Anesthesia Assessment: Anesthesia Plan Discussed Final Anesthetic Review Family History of Problems with Anesthesia: No History of Problems with Anesthesia: No NPO: Yes ASA Class: III Final Preanesthetic Review: No Changes in Pt Med Stat, Meds/Allgs Chart Reviewed, Consent Obtained/Reviewed and Anes Risks/Benef Reviewed Patient Risk: Intermediate Procedure Risk: Low Anesthetic Plan Anesthetic Plan: MAC: Disposition: Standard PACU
--- OUTSIDE RECORDS SUMMARY | 2023-12-31 10:14 | XMS_ITS | Continuity of Care Document ---
Author Organization [facility] Primary Car e [address] Address [address] [place] [address]- Care Team Providers Care Bituminous Distributor Operator Name Role Phone Skyler Honeycutt Primary Care Physician [phone] Encounter [facility] Date(s): 11/17/23 - 12/17/23 [facility] Primary Care [address] [place], [place] [address] Allergies, Adverse Reactions, Alerts Substance Reaction Severity [...] influenza virus vaccine, inactivated 12/24/14 Dereje rded [id number] bivalent booster vax 12/27/21 Recorded SARS-CoV-2 (COVID-19) [...] 2 times a day, # 180 capsule, 0 Refills, Maintenance, 12/15/23 8:53:00EDT, [facility], 165.1, cm, 11/09/23 15:24:00 EDT, Height, 83, kg, 04/24/23 10:30:00 EST, Dry Weight Start Date: 12/15/23 Stop Date: 03/14/24 Status: Ordered EPINEPHrine 0.3 mg injectable solution = 0.3 mg, Intramuscular, Once, # 1 each, 1 Refills, Soft Stop, 09/22/23 17:03:00 EDT, [facility], 165.1, cm, 07/24/23 13:45:00 EDT, Height, 83, kg, 04/24/23 10:30:00 EST, Dry Weight Start Date: 09/22/23 Status: Ordered ergocalciferol 00584 iu oral capsule See Instructions, TAKE 1 [...] office -delivered by patients own pharmacy-[facility], # 1 each, 11 Refills, Maintenance, 09/04/23 7:32:00 EDT, Injection, [facility], [facility] #[id number], 165.1, cm, 07/24/23 13:4... 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 Confirmed Active Post traumatic stress [...] Care Team Personnel Name: Viviana Hillman Position: [facility] Onco RN Member Role: Primary Care Nurse Name: Nicole Torrez RN Position: [facility] SN RN Member Role: Primary Care Nurse Name: Irwin Soto CRNA Position: [facility] Associate Professional Member Role: Primary Care Nurse Address: Address: [address] [place] [address] Anesthesia Services [place], [place] [address] Name: Guerline Piña RN Position: S RN Member Role: Primary Care Nurse Name: Cassandra Clement RN Position: [facility] RN Member Role: Primary Care Nurse Name: Aide Mar RN Position: [facility] ED RN W/OE and Tasks Member Role: Primary Care Nurse Name: Skyler Honeycutt Position: [facility] PCO Associate Professional Member Role: PCP Address: Address: [address] [place] [address] Primary Care [place], [place] - [place] Name: Jessi Pittman [place] Position: [facility] Amb Office Staff Member Role: Primary Care Nurse Name: Mila Veronica [place] Position: [facility] Amb Office Staff Member Role: Primary Care Nurse Name: Lucian Cline DO Position: [facility] VAMP MARKER MD Member Role: Lifetime VAMP MARKER Physician Address: Address: [address] [place] [address] - [place] Name: Hanane Callaway RN Position: [facility] Onco RN Member Role: Primary Care Nurse Name: Nila Mustafa RN Position: [facility] ED RN W/OE and Tasks Member Role: Primary Care Nurse Name: Donis Mcclellan MD Position: [facility] Physician - Behavioral Health Member Role: Lifetime Consulting Physician Address: Address: [address] [place] [address]- Care Team Related Persons Name: PHILLIP GOETZ Address: [address] [place] [address] Name: PHILLIP GOETZ Address: [address] [place] [address] Name: SADA KRAMER Address: home [address] [place] [address]
--- OUTSIDE RECORDS SUMMARY | 2023-12-31 10:15 | XMS_ITS | Continuity of Care Document ---
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 Name Role Phone Skyler Honeycutt Primary Care Physician Encounter 12/21/23 - 12/22/[address] [address] Attending Physician: Not on Staff, Attending MD [...] influenza virus vaccine, inactivated 12/24/14 Dereje rded [id number] bivalent booster vax 12/27/21 Recorded SARS-CoV-2 (COVID-19) [...] day, # 90 tablet, 5 Refills, Maintenance, 12/18/23 11:12:00 EDT, Tablet, [facility], 165.1, cm, 11/09/23 15:24:00 EDT, Height, 83, kg, 04/24/23 10:30:00 EST, Dry Weight Start Date: 12/18/23 Stop Date: 06/15/24 Status: Ordered cloNIDine 0.1 mg oral tablet 0.1 mg, 1, tablet, By Mouth, Daily, As needed for anxiety, # 90 tablet, Refills 1, Tot. Refills 1, Maintenance, 12/18/23 11:12:00 EDT, Route to Pharmacy Electronically, [facility], 165.1, cm, 11/09/23 15:24:00 EDT, Height, 83, kg, 04/24/23... Start Date: 12/18/23 Stop Date: 06/15/24 Status: Ordered duloxetine 30 mg oral enteric coated capsule 1 capsule = 30 mg, By Mouth, 2 times a day, # 180 capsule, 1 Refills, Maintenance, 12/18/23 11:12:00 EDT, [facility], 165.1, cm, 11/09/23 15:24:00 EDT, Height, 83, kg, 04/24/23 10:30:00 EST, Dry Weight Start Date: 12/18/23 Stop Date: 06/15/24 Status: Ordered EPINEPHrine 0.3 mg injectable solution = 0.3 mg, Intramuscular, Once, # 1 each, 1 Refills, Soft Stop, 09/22/23 17:03:00 EDT, [facility], 165.1, cm, 07/24/23 13:45:00 EDT, Height, 83, kg, 04/24/23 10:30:00 EST, Dry Weight Start Date: 09/22/23 Status: Ordered ergocalciferol 76818 iu oral capsule See Instructions, TAKE 1 [...] capsule, Refills 1, Tot. Refills 1, Maintenance, 12/18/23 11:13:00 EDT, Instructions Replace Required Details, Route to Pharmacy Electronically, [facility], 165.1, cm, 0... Start Date: 12/18/23 Status: Ordered gabapentin 300 mg oral capsule 300 mg, 1, capsule, By Mouth, Daily at bedtime, # 90 capsule, Refills 1, Tot. Refills 1, Maintenance, 12/18/23 11:13:00 EDT, Route to Pharmacy Electronically, [facility], Partial fillupon patient request if the prescription is for a sched... Start Date: 12/18/23 Stop Date: 06/15/24 Status: Ordered Mastectomy Bra See Instructions, # [...] our office -delivered by patients own pharmacy-formerly [facility], # 1 each, 11 Refills, Maintenance, 09/04/23 7:32:00 EDT, Injection, [facility] #[id number], 165.1, cm, 07/24/23 13:4... 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 Active Post traumatic stress [...] Team Personnel Name: Viviana Hillman Position: [facility] Onco RN Member Role: Primary Care Nurse Name: Nicole Torrez RN Position: [facility] SN RN Member Role: Primary Care Nurse Name: Irwin Soto CRNA Position: [facility] Associate Professional Member Role: Primary Care Nurse Address: Address: [address] [place] [address] Anesthesia Services [place], [place] [address] Name: Guerline Piña RN Position: [facility] RN Member Role: Primary Care Nurse Name: Cassandra Clement RN Position: [facility] RN Member Role: Primary Care Nurse Name: Aide Mar RN Position: [facility] ED RN W/OE and Tasks Member Role: Primary Care Nurse Name: Skyler Honeycutt Position: [facility] PCO Associate Professional Member Role: PCP Address: Address: [address] [place] [address] [place] [address]- [place] Name: Jessi Pittman [place] Position: [facility] Amb Office Staff Member Role: Primary Care Nurse Name: Mila Veronica [place] Position: [facility] Amb Office Staff Member Role: Primary Care Nurse Name: Lucian Cline DO Position: [facility] WEDDING MAKEUP ARTIST MD Member Role: Lifetime WEDDING MAKEUP ARTIST Physician Address: Address: [address] [place] [address]- [place] Name: Hanane Callaway RN Position: [facility] Onco RN Member Role: Primary Care Nurse Name: Nila Mustafa RN Position: [facility] ED RN W/OE and Tasks Member Role: Primary Care Nurse Name: Donis Mcclellan MD Position: [facility] Physician - Behavioral Health Member Role: Lifetime Consulting Physician Address: Address: [address] [place] [address]- Care Team Related Persons Name: PHILLIP GOETZ Address: [address] [place], [place] Name: PHILLIP GOETZ Address: [address] [place], [place] Name: SADA KRAMER Address: home [address] [place] [address]
[2023-12-31 11:01] VITALS: BP 113/89; PULSE 87; RESP 16; TEMP 37.2; O2SAT 97; BMI 31.2
[2023-12-31] MEDS: Lactated Ringers 1,000 ML 80 ML IVCONT (11:12)
--- NOTE | 2023-12-31 12:16 | MHC.SHP ---
Pre-Procedural Eval Section A - 24 Hr Update-Section A only Date of Service: 12/31/23 The patient is an INPATIENT: No The patient has been examined within 24 hours of the surgical procedure. The History & Physical has been completed within 30 days and I have reviewed it.: Yes Section B - Complete if H&P > 30 days Chief Complaint: Morbid (severe) obesity due to excess calories Details of Present Illness: GERD Relevant Family History (Specify if Yes): No Relevant Social History: None Present Medications: None Medical History: No relevant PMH History of Previous Operations: Relevant previous surgery/procedure and date(s) (laparoscopic gastric bypass) Allergies: Allergies Allergy/AdvReac Type Severity Reaction Status Date / Time bee pollen Allergy Severe Anaphylaxis Verified 12/31/23 10:56 mold Allergy Intermediate Congested Uncoded 12/31/23 10:56 Review of Systems Sugical H&P ROS: Negative: Constitution, Cardiovascular, Respiratory, Neurological, Psychiatric, Hem-Onc, Allergic/Immunologic, Gastrointestinal, Genitourinary, Musculoskeletal, Integumentary, Endocrine and Eyes/Ears/Nose/Throat Exam Surgical H&P Exam: Normal: HEENT, Normal: Heart, Normal: Lungs, Normal: Extremities, Normal: Abdomen, Normal: Skin and Normal: Neurological Plan Diagnosis/Plan: Unchanged (EGD to assess etiology of GERD. Risks of bleeding and perforation were discussed with the patient and she is in agreement with the plan.) I have reviewed the history and physical and performed a pertinent physical examination on my patient. No changes have occurred unless specified. Time Spent With Patient Time: Total time managing care of this patient today ____ minutes.
--- NOTE | 2023-12-31 12:21 | PM.OP ---
Brief Operative Note Date of Service: 12/31/23 Pre-op diagnosis: GERD, s/p gastric bypass Post-op diagnosis: same Procedure: PROCEDURE DATE: 12/31/2023 PREOPERATIVE DIAGNOSIS: GERD, s/p gastric bypass POSTOPERATIVE DIAGNOSIS: ?Same as above. 1) Normal post-bypass EGD PROCEDURE: [id number]-ydpjfolgulu with biopsies Surgeon: ?Pratik Roldan M.D.. Ph.D. Train Control Technician: ?None ? Anesthesia: IV sedation Estimated blood loss: ?Minimal FINDINGS AND PROCEDURE: ? OPERATIVE INDICATIONS: ?The patient is a 48 year old male known to me who underwent a laparoscopic gastric bypass at [facility] [place]. The patient had inadequate weight loss so far and has GERD.? Based on this information I recommended an upper endoscopy to evaluate the patient's symptoms.? Risks and complications of the surgery were discussed with the patient in advance particularly the possibility of perforation or bleeding that may require surgical intervention. The patient understood the risks and was in agreement with the plan. ? PROCEDURE: After informed consent was obtained by the patient, the patient was ?transferred to the Operating Room and was placed in the supine position.? After successful induction of IV sedation, a mouth block was placed and the patient was placed in the left lateral decubitus position. An upper endoscopy was performed next, the oropharynx and esophagus appeared within the normal limits. There was no hiatal hernia.? The z-line was smooth and was at 35cm from incisors. Two biopsies were obtained from the distal esophagus 2-3 cm proximal to the GE junction and two biopsies from the GE junction. The gastric pouch was entered, appeared to be of normal size. There was mild proximal redundancy. There was no gastritis and the gastrojejunostomy was patent. A biopsy was obtained from the gastric pouch. No significant bleeding was noted from any of the biopsy sites. There was no anastomotic ulcer.? The GJ anastomosis was normal and it was at 40cm from the incisors. At that point the scope was advanced into the proximal small intestine (proximal Nimo limb) which appeared to be normal as well. The Nimo limb and the pouch were decompressed and the scope was withdrawn from the patient's mouth. The patient was awaken and was transferred in stable condition to the Recovery Room for further care. I was present and performed all steps of the procedure. There were no residents to assist with this case. Pratik Roldan M.D., Ph.D. Surgeon: Holger Roldan MD Anesthesia: MAC Was an Train Control Technician used for this Procedure?: No Estimated blood loss (mL): 0 IV fluids (mL): 400 Urine output (mL): 0 (No Chin to record output) Pathology: other (1) gastric pouch x1 2) GE junction x2, 3) distal esophagus x2) Condition: stable Disposition: PACU
[2023-12-31 12:50] VITALS: BP 108/72; PULSE 83; RESP 16; TEMP 36.4; O2SAT 96
[2023-12-31 12:55] VITALS: BP 111/72; PULSE 78; RESP 16; O2SAT 98
[2023-12-31 13:00] VITALS: BP 116/89; PULSE 85; RESP 16; O2SAT 96
[2023-12-31 13:05] VITALS: BP 120/80; PULSE 75; RESP 16; TEMP 36.6; O2SAT 95
== END 2023-12-31 13:29 | disposition home or self-care (01) ==
PROVIDERS: PCP Physician Assistant; Visit Provider Surgery
PROC: 0DJ08ZZ Inspection of Upper Intestinal Tract, Via Natural or Artificial Opening Endoscopic (ICD-10-PCS; CPT 43235; principal; 2023-12-31 11:30)
DX: K21.9 Gastro-esophageal reflux disease without esophagitis (principal); Z98.84 Bariatric surgery status; E66.09 Other obesity due to excess calories; Z68.35 Body mass index [BMI] 35.0-35.9, adult; Z98.0 Intestinal bypass and anastomosis status; E53.8 Deficiency of other specified B group vitamins; Z79.899 Other long term (current) drug therapy; Z98.890 Other specified postprocedural states
CPT/HCPCS: 43239; 88305; 88313; 88342; J1100; J1596; J2003; J2250; J2704

== ENCOUNTER → 2023-12-31 10:10 | Outpatient (BNV) | payer OTHER, SELFPAY | PROVIDERS: PCP Physician Assistant; Visit Provider Surgery | DX: K21.9 Gastro-esophageal reflux disease without esophagitis (principal); Z98.84 Bariatric surgery status | CPT/HCPCS: 43239 ==